=== PATIENT | female | born 1925 | race Caucasian/White ===

== ENCOUNTER 2016-07-01 10:45 | Inpatient (IN) | payer MEDICARE, BC ==
[~2016-07-01] VITALS: Ht 157.5 cm; Wt 113.0 kg
[2016-07-01] VITALS (9 sets, daily range): BP systolic 123–176; BP diastolic 57–86; PULSE 69–122; RESP 16–28; TEMP 97.1–97.9; O2SAT 94–100
[2016-07-01] MEDS ORDERED: GLIP5TAB8 PO (11:19)
[2016-07-01] MEDS ORDERED: ASPI1TAB69 PO (11:19)
[2016-07-01] MEDS ORDERED: AMLO10TA2 PO (11:19)
[2016-07-01] MEDS ORDERED: FURO1TAB60 PO (11:19)
[2016-07-01] MEDS ORDERED: DILTIAZEM INJ 125 MG in SODIUM CHLORIDE 0.9% INJ 100 ML IV SCH (11:45)
[2016-07-01] MEDS ORDERED: FUROSEMIDE 100 MG/10 ML VIAL IVP ONE (11:45)
[2016-07-01] MEDS ORDERED: SODIUM CHLORIDE 0.9% FLUSH 5 ML FLUSH IVF PRN (11:45)
[2016-07-01] MEDS ORDERED: DILTIAZEM HCL 25 MG/5 ML VIAL IVP ONE (11:45)
[2016-07-01 11:55] LABS: AUTOMATED NEUTROPHIL # 4.8 TH/MM3 (1.8-7.7); BASOPHIL % 0.4 % (0.0-2.0); EOSINOPHIL # 0.2 TH/MM3 (0-0.4); EOSINOPHIL % 2.2 % (0.0-4.0); HEMATOCRIT 36.4 % (35.0-46.0); HEMO FLAGS DIFF FINAL; LYMPH % 20.7 % (9.0-44.0); LYMPHOCYTE # 1.4 TH/MM3 (1.0-4.8); MEAN CELL VOLUME 87.8 FL (80.0-100.0); MEAN CORPUSCULAR HEMOGLOBIN 28.6 PG (27.0-34.0); MEAN CORPUSCULAR HGB CONC 32.6 % (32.0-36.0); MONO % 7.6 % (0.0-8.0); NEUT % 69.1 % (16.0-70.0); PLATELET COUNT 191 TH/MM3 (150-450); RED BLOOD COUNT 4.14 MIL/MM3 (4.00-5.30); RED CELL DISTRIBUTION WIDTH 14.7 % (11.6-17.2); WHITE BLOOD COUNT 6.9 TH/MM3 (4.0-11.0)
[2016-07-01 12:02] LABS: PROTHROMBIN TIME - PATIENT 10.7 SEC (9.8-11.6)
[2016-07-01 12:11] LABS: BICARBONATE 28.9 MEQ/L (21.0-32.0); POTASSIUM 4.5 MEQ/L (3.5-5.1)
[2016-07-01] MEDS ORDERED: LOTR10CA2 PO (12:37)
[2016-07-01] MEDS ORDERED: [UNRECOGNIZED DRUG - CODE] (12:37)
[2016-07-01] MEDS ORDERED: HEPARIN SODIUM - IV 10,000 UNITS/10 ML VIAL IV ONE (13:00)
[2016-07-01] MEDS ORDERED: HEPARIN-D5W INJ 250 ML IV SCH (13:00)
--- NOTE | 2016-07-01 13:01 | HHI.HP ---
[facility] Service Family Medicine Primary Care Physician Admission Diagnosis Diagnoses: International Travel<30 Days: No Contact w/Intl Traveler<30days: No Known Affected Area: No History of Present Illness This is a pleasant 89-year-old female here with her daughter and granddaughter complaining of shortness of breath for the last 8-9 days. Normally she is able to walk 100 steps without feeling short of breath. However, progressively over the last 8 days she has been getting more short of breath with fewer steps. Currently, she gets very short of breath after only 20 steps. She is visiting from [place] and her daughter provides a lot of her past medical history. She takes Lasix 60 mg daily for leg swelling although they think she also has a diagnosis of congestive heart failure. Her shortness of breath is worse with ambulation. Her shortness of breath is not related to positions. She sleeps flat on her stomach and does not wake up with breathing difficulties. While at school today with her daughter, she did not feel she could move any further. She asked her daughter if she looked pale and told her she was feeling poorly. She denies any feelings of palpitations or heart racing during the last 8-9 days. When she gets short of breath, she also feels "lightheaded. " She does not necessarily feel dizzy. Recently, she has had no cough, fever, chills. She does feel like she is wheezing more than usual. She used her Ventolin inhaler and felt much improvement with her wheezes. (Chicho Cao MD R2) Review of Systems Constitutional: DENIES: Fever, Chills Eyes: DENIES: Blurred vision, Diplopia Ears, nose, mouth, throat: COMPLAINS OF: Hearing loss (already has this; very hard of hearing), DENIES: Throat pain Respiratory: COMPLAINS OF: Wheezing (loud audible wheezes for a couple weeks), DENIES: Cough Cardiovascular: DENIES: Chest pain, Palpitations, Syncope Gastrointestinal: DENIES: Abdominal pain, Black stools, Bloody stools, Constipation, Diarrhea, Nausea, Vomiting Genitourinary: COMPLAINS OF: Urinary incontinence (hx of stress incontinence; wears briefs), DENIES: Urinary frequency, Urgency Integumentary: DENIES: Pruritus, Rash Neurologic: COMPLAINS OF: Poor Balance, DENIES: Abnormal gait, Headache Psychiatric: DENIES: Anxiety, Confusion (Chicho Cao MD R2) Past Family Social History Past Medical History CHF DVT in each knee; 2011; previously on xarelto but stopped by PCP HTN Stress incontinence COPD/asthma Hx of C. 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) Past Surgical History Both knees Both eyes: cataract Parathyroid removed X 1 Complete hysterectomy Cholecystectomy Hemroidectomy Left breast lumpectomy Reported Medications Reported Meds & Active Scripts Active Reported Lotrel (Amlodipine-Benazepril) 10-40 Mg Cap 1 Cap PO DAILY Aspirin 81 Mg Tabdr 81 Mg PO DAILY Glipizide 5 Mg Tab 5 Mg PO DAILY Take 30 minutes before a meal Lasix (Furosemide) 40 Mg Tab 40 Mg PO DAILY Previously on xarelto for DVT but stopped by her PCP (Chicho Cao MD R2) Allergies: Coded Allergies: Penicillin (Verified Allergy, Unknown, 07/01/16) Sulfa (Verified Allergy, Unknown, 07/01/16) Uncoded Allergies: Phenobarbitol (Allergy, Severe, Hives, 07/01/16) Active Ordered Medications Active Medications Diltiazem HCl 20 mg 20 mg ONCE ONCE IVP Last administered on 07/01/16 12:29; Admin Dose 20 MG; Start 07/01/16 at 11:45; Stop 07/01/16 at 11:46; Status DC Diltiazem HCl/ Sodium Chloride (Cardizem Inj/NS Inj) 125 ml @ 0 mls/hr TITRATE IV; Start 07/01/16 at 11:45 Furosemide (Lasix Inj) 60 mg ONCE ONCE IVP Last administered on 07/01/16 12:29 ; Admin Dose 60 MG; Start 07/01/16 at 11:45; Stop 07/01/16 at 11:46; Status DC Heparin Sodium (Porcine) 5000 units 5,000 units ONCE ONCE IV; Start 07/01/16 at 13:00; Stop 07/01/16 at 13:01; Status DC Heparin Sodium/ Dextrose (Heparin-D5W Inj) 250 ml @ 0 mls/hr TITRATE IV; Start 07/01/16 at 13:00 IV Flush (NS Flush) 2 ml UNSCH PRN IVF; Start 07/01/16 at 11:45 Family History Twin: CHF Sister: DM, CAD Dad: bright's disease Mom: colon cancer Social History PCP Dr. Cristy Correa in [facility]. Never smoker. Rarely alcohol. Stays here from April to . (Chicho Cao MD R2) Physical Exam Vital Signs Vital Signs Date Time Temp Pulse Resp B/P Pulse Ox O2 Delivery O2 Flow Rate FiO2 07/01/16 12:34 100 Nasal Cannula 2 07/01/16 12:34 86 19 137/79 100 Nasal Cannula 2 07/01/16 10:48 97.7 122 20 128/86 94 Physical Exam GENERAL: This is a well-nourished, well-developed patient, in no apparent distress. SKIN: No rashes, ecchymoses or lesions. Cool and dry. HEAD: Atraumatic. Normocephalic. No temporal or scalp tenderness. EYES: Pupils equal round and reactive. Extraocular motions intact. No scleral icterus. No injection or drainage. ENT: Nose without bleeding, purulent drainage or septal hematoma. Throat without erythema, tonsillar hypertrophy or exudate. Uvula midline. Airway patent. NECK: Trachea midline. No JVD or lymphadenopathy. Supple, nontender, no meningeal signs. CARDIOVASCULAR: Regular rate and irregular rhythm without murmurs, gallops, or rubs. RESPIRATORY: Clear to auscultation. Breath sounds equal bilaterally. No wheezes , rales, or rhonchi. GASTROINTESTINAL: Abdomen soft, non-tender, nondistended. No hepato-splenomegaly , or palpable masses. No guarding. MUSCULOSKELETAL: Extremities without clubbing, cyanosis, or edema. No joint tenderness, effusion, or edema noted. No calf tenderness. Negative Homans sign bilaterally. NEUROLOGICAL: Awake and alert. Cranial nerves II through XII intact. Motor and sensory grossly within normal limits. Five out of 5 muscle strength in all muscle groups. Normal speech. Laboratory Laboratory Tests Test 07/01/16 11:45 White Blood Count 6.9 Red Blood Count 4.14 Hemoglobin 11.9 Hematocrit 36.4 Mean Corpuscular Volume 87.8 Mean Corpuscular Hemoglobin 28.6 Mean Corpuscular Hemoglobin 32.6 Concent Red Cell Distribution Width 14.7 Platelet Count 191 Mean Platelet Volume 8.6 Neutrophils (%) (Auto) 69.1 Lymphocytes (%) (Auto) 20.7 Monocytes (%) (Auto) 7.6 Eosinophils (%) (Auto) 2.2 Basophils (%) (Auto) 0.4 Neutrophils # (Auto) 4.8 Lymphocytes # (Auto) 1.4 Monocytes # (Auto) 0.5 Eosinophils # (Auto) 0.2 Basophils # (Auto) 0.0 CBC Comment DIFF FINAL Differential Comment Prothrombin Time 10.7 Prothromb Time International 1.0 Ratio Sodium Level 143 Potassium Level 4.5 Chloride Level 108 Carbon Dioxide Level 28.9 Anion Gap 6 Blood Urea Nitrogen 37 Creatinine 1.70 Estimat Glomerular Filtration 28 Rate Random Glucose 171 Calcium Level 8.8 Troponin I 0.06 B-Type Natriuretic Peptide 311 (Chicho Cao MD R2) Result Diagram: 07/01/16 1145 07/01/16 1145 Imaging Last Impressions Chest X-Ray 07/01/16 1134 Signed Impressions: Service Date/Time: June 12:02 - CONCLUSION: Subtle hazy opacity overlying the lower lung zones is felt to most likely be related to overlying soft tissue. There is slight blunting of the left costophrenic sulcus. Rian Terry MD Lung Scan-V Nuclear Medicine 07/01/16 0000 Signed Impressions: Service Date/Time: June 14:29 - CONCLUSION: 1. Low probability for pulmonary embolus. Mode Aguilar MD (Chicho Cao MD R2) Assessment and Plan Assessment and Plan 89-year-old female with history of COPD and questionable history of CHF presents with shortness of breath and found to be in new onset atrial fibrillation. She was rate controlled in the emergency room. She was started on diltiazem and heparin drip. Cardiology has been consulted. Code Status Full Discussed Condition With Dr. Ezra Whitten (Chicho Cao MD R2) Attending Attestation The patient has been seen and examined. The chart and all resident notes have been reviewed. I agree that inpatient care is appropriate and that a two midnight stay is expected for the reasons documented in the resident history and physical. I have discussed this with the resident and certify the resident s order for inpatient admission. (Kaye Whitten MD) Problem List: (1) SOB (shortness of breath) Status: Resolved Plan: V/Q scan shows low probability for pulmonary embolus Shortness of breath likely related to atrial fibrillation with RVR. (2) Atrial fibrillation with RVR Status: Acute Plan: Cardiology consult, Dr. Munguia Currently she is rate controlled [id number] is 5 or 6 (age greater than 75, female, questionable CHF, hypertension, diabetes) Diltiazem drip started in the emergency room Eliquis 2.5 mg by mouth twice a day for anticoagulation Rate control with metoprolol 50 mg by mouth every 12 hours Echocardiogram ordered (3) Elevated troponin I level Status: Acute Plan: Very likely demand ischemia from A. fib with RVR We will rule out myocardial infarction Trend troponins and EKGs every 6 hours (4) Congestive heart failure Status: Chronic Plan: Unclear given history that the patient has congestive heart failure. BNP 311 Cardiogram pending Lasix 40 mg IV daily; expect adjustments as the patient has chronic kidney disease as well. (5) COPD (chronic obstructive pulmonary disease) Status: Chronic Plan: DuoNeb's every 4 hours. Careful with albuterol because of atrial fibrillation (6) Diabetes Status: Chronic Plan: Hold glipizide Provide sliding scale insulin (7) Chronic kidney disease Status: Chronic Plan: Unclear patient's baseline, however the patient and daughter both state she has chronic kidney disease. Trend BMPs while hospitalized. (8) Hypertension Status: Chronic Plan: Continue amlodipine/Benzapril 10/40 mg Daily (9) FEN/PPX Status: Acute Plan: Fluids: Tolerating by mouth Electrolytes: Monitor and replace when necessary Nutrition: Heart healthy diet Prophylaxis: Eliquis 2.5 mg, SCDs. (Chicho Cao MD R2) Physician Certification 2 Midnight Certification Type: Admission for Inpatient Services Order for Inpatient Services The services are ordered in accordance with Medicare regulations or non- Medicare payer requirements, as applicable. In the case of services not specified as inpatient-only, they are appropriately provided as inpatient services in accordance with the 2-midnight benchmark. Estimated LOS (days): 2 days is the estimated time the patient will need to remain in the hospital, assuming treatment plan goals are met and no additional complications. Post-Hospital Plan: Home (Chicho Cao MD R2) Problem Qualifiers (1) Congestive heart failure: Qualified Code: I50.9 - Congestive heart failure, unspecified congestive heart failure chronicity, unspecified congestive heart failure type (2) Diabetes: Qualified Code: E11.8 - Type 2 diabetes mellitus with complication, without long-term current use of insulin Chicho Cao MD R2 Jul 01, 2016 13:01 Kaye Whitten MD Jul 02, 2016 16:17
--- NOTE | 2016-07-01 13:03 | PD ---
HPI Chief Complaint: Respiratory Distress Time Seen by Provider: 11:03 Travel History International Travel<30 days: No Contact w/Intl Traveler<30days: No Traveled to known affect area: No History of Present Illness HPI 89-year-old female came to the emergency room with her daughter with history of progressive shortness of breath over one week. No history of chest pain. Currently patient is short of breath even at rest. Patient was in atrial fibrillation on the monitor with heart rate in 120s. Asking patient says she has never been diagnosed with A. fib. She has been taking her inhaler at home for shortness of breath and wheezing. She does not require oxygen at home. Her oxygen saturation was 94% on room air. No history of vomiting or diarrhea. No history of fever or chills. No history of cough she has noticed some swelling of her ankles. Patient has history of DVT and went off her Xarelto couple months ago as per her doctor's recommendations. [facility] Past Medical History Narrative Medical List of her past medical, surgical, social and family history is reviewed from the nursing note. Asthma: Yes Cardiovascular Problems: Yes (HTN) COPD: Yes Diabetes: Yes (TYPE2) Patient Takes Glucophage: No Hypertension: Yes Respiratory: Yes (COPD/ASTHMA / DVT) Pneumonia: Yes Influenza Vaccination: Yes ?: Not Past Surgical History Cholecystectomy: Yes Hysterectomy: Yes Tonsillectomy: Yes Other Surgery: Yes (PARATHYROID SURGERY / HEMORRHOIDECTOMY) Social History Alcohol Use: Yes (RARELY) Tobacco Use: No Substance Use: No Allergies-Medications (Allergen,Severity, Reaction): Coded Allergies: Penicillin (Verified Allergy, Unknown, 07/01/16) Sulfa (Verified Allergy, Unknown, 07/01/16) Uncoded Allergies: Phenobarbitol (Allergy, Severe, Hives, 07/01/16) Comments List of her allergies reviewed from the nursing note. Reported Meds & Prescriptions Reported Meds & Active Scripts Active Reported Aspirin 81 Mg Tabdr 81 Mg PO DAILY Glipizide 5 Mg Tab 5 Mg PO DAILY Take 30 minutes before a meal Lasix (Furosemide) 40 Mg Tab 40 Mg PO DAILY Narrative Medication List of her home medications reviewed from the nursing note. Review of Systems Except as stated in HPI: all other systems reviewed are Neg Physical Exam Narrative GENERAL: Awake, alert, elderly, obese, moderate respiratory distress SKIN: Warm and dry. HEAD: Atraumatic. Normocephalic. EYES: Pupils equal and round. No scleral icterus. No injection or drainage. ENT: No nasal bleeding or discharge. Mucous membranes pink and moist. NECK: Trachea midline. No JVD. CARDIOVASCULAR: Irregularly irregular rhythm with tachycardia. No murmur appreciated. RESPIRATORY: Decreased air entry bilaterally with bibasilar crackles GASTROINTESTINAL: Abdomen soft, non-tender, nondistended. Hepatic and splenic margins not palpable. MUSCULOSKELETAL: No obvious deformities. No clubbing. No cyanosis. 1+ pedal edema. NEUROLOGICAL: Awake and alert. No obvious cranial nerve deficits. Motor grossly within normal limits. Normal speech. PSYCHIATRIC: Appropriate mood and affect; insight and judgment normal. Data Data Last Documented VS Vital Signs Date Time Temp Pulse Resp B/P Pulse Ox O2 Delivery O2 Flow Rate FiO2 07/01/16 12:34 100 Nasal Cannula 2 07/01/16 12:34 86 19 137/79 07/01/16 10:48 97.7 Orders Electrocardiogram (07/01/16 ) Complete Blood Count With Diff (07/01/16 11:34) Basic Metabolic Panel (Bmp) (07/01/16 11:34) B-Type Natriuretic Peptide (07/01/16 11:34) Prothrombin Time / Inr (Pt) (07/01/16 11:34) Troponin I (07/01/16 11:34) Urinalysis - C+S If Indicated (07/01/16 11:34) Iv Access Insert/Monitor (07/01/16 11:34) Ecg Monitoring (07/01/16 11:34) Oximetry (07/01/16 11:34) Oxygen Administration (07/01/16 11:34) Chest, Single Ap (07/01/16 11:34) Sodium Chloride 0.9% Flush (Ns Flush) (07/01/16 11:45) Furosemide Inj (Lasix Inj) (07/01/16 11:45) Vital Signs (Adult) Q15MX4,Q4H (07/01/16 11:34) Alarm Installation Technician / Telemetry FRANCISCO.Q8H (07/01/16 11:34) Cardiac Rhythm FRANCISCO.Q8H (07/01/16 11:34) ^ Notify Dr: Other (07/01/16 11:34) Diltiazem Inj (Cardizem Inj) (07/01/16 11:45) Diltiazem Inj (Cardizem Inj) (07/01/16 11:45) Heparin Infusion FRANCISCO.Q1H (07/01/16 12:54) Heparin Inj (Heparin Inj) (07/01/16 13:00) Heparin-D5w Inj (Heparin-D5w Inj) (07/01/16 13:00) Act Partial Throm Time (Ptt) (07/01/16 12:54) Act Partial Throm Time (Ptt) (07/01/16 19:54) Admit Order (Ed Use Only) (07/01/16 13:03) Ventilation & Perfusion Scan (07/01/16 ) Labs Laboratory Tests Test 07/01/16 11:45 White Blood Count 6.9 TH/MM3 Red Blood Count 4.14 MIL/MM3 Hemoglobin 11.9 GM/DL Hematocrit 36.4 % Mean Corpuscular Volume 87.8 FL Mean Corpuscular Hemoglobin 28.6 PG Mean Corpuscular Hemoglobin 32.6 % Concent Red Cell Distribution Width 14.7 % Platelet Count 191 TH/MM3 Mean Platelet Volume 8.6 FL Neutrophils (%) (Auto) 69.1 % Lymphocytes (%) (Auto) 20.7 % Monocytes (%) (Auto) 7.6 % Eosinophils (%) (Auto) 2.2 % Basophils (%) (Auto) 0.4 % Neutrophils # (Auto) 4.8 TH/MM3 Lymphocytes # (Auto) 1.4 TH/MM3 Monocytes # (Auto) 0.5 TH/MM3 Eosinophils # (Auto) 0.2 TH/MM3 Basophils # (Auto) 0.0 TH/MM3 CBC Comment DIFF FINAL Differential Comment Prothrombin Time 10.7 SEC Prothromb Time International 1.0 RATIO Ratio Activated Partial 25.8 SEC Thromboplast Time Sodium Level 143 MEQ/L Potassium Level 4.5 MEQ/L Chloride Level 108 MEQ/L Carbon Dioxide Level 28.9 MEQ/L Anion Gap 6 MEQ/L Blood Urea Nitrogen 37 MG/DL Creatinine 1.70 MG/DL Estimat Glomerular Filtration 28 ML/MIN Rate Random Glucose 171 MG/DL Calcium Level 8.8 MG/DL Troponin I 0.06 NG/ML B-Type Natriuretic Peptide 311 PG/ML MDM Medical Decision Making Medical Screen Exam Complete: Yes Emergency Medical Condition: Yes Medical Record Reviewed: Yes Interpretation(s) Twelve-lead EKG was reviewed by me. Relation, normal axis, RVR. Heart rate of 109 bpm. Differential Diagnosis Congestive heart failure, new onset A. fib with RVR, PE, pneumonia Narrative Course 1 PM blood test results are back and patient is in renal insufficiency. Troponin is slightly bumped which could be from the A. fib with RVR and CHF. However patient does have history of DVT and given the clinical picture this could also be a PE. I could not do a pulmonary angiogram given her suboptimal renal function. I've ordered a VQ scan. Patient got IV Cardizem bolus and drip and her heart rate now is in the 80s. I have started her on heparin bolus and drip as well since she continues to be A. fib. Even if there is a PE she will be treated with the heparin. Patient will require to be admitted. I have spoken with the residents who have accepted the case. Patient was also given 60 mg of Lasix upon arrival. Critical Care Narrative Aggregate critical care time was 45 minutes. Time to perform other separately billable procedures was not included in the critical care time. My time did not include minutes spent treating any other patients simultaneously or on activities that did not directly contribute to the patient's treatment. The services I provided to this patient were to treat and/or prevent clinically significant deterioration that could result in: Respiratory distress, A. fib with RVR, new onset A. fib, Cardizem drip, heparin bolus and drip I provided critical care services requiring my management, as noted below: Chart data review, documentation time, medication orders and management, vital sign assessments/reviewing monitor data, ordering and reviewing lab tests, ordering and interpreting/reviewing x-rays and diagnostic studies, care of the patient and discussion of the patient with the admitting physicians. Procedures EKG Prior to Arrival: Yes Diagnosis Primary Impression: Respiratory distress Additional Impressions: Congestive heart failure Qualified Code: I50.9 - Congestive heart failure, unspecified congestive heart failure chronicity, unspecified congestive heart failure type New onset a-fib Atrial fibrillation with RVR Renal insufficiency Elevated troponin I level Admitting Information Admitting Physician Requests: Admit Scripts Benzonatate (Tessalon Perles)100 Mg [id number] Mg PO TID PRN (COUGH) #90 CAP Prov:Eko,Jennifer Cheema MD R1 07/03/16 Guaifenesin ER 12 HR (Mucinex ER 12 HR)600 Mg Ltqst278 Mg PO BID #60 TAB Prov:Jennifer Franklin MD 07/03/16 Nebulizer 1 Mis Mis #1 EA .ROUTE DIRECTED Ref 0 Prov:Jennifer Franklin MD 07/03/16 Ipratropium-Albuterol Neb (Duoneb)0.5-2.5 Mg/3 Ml Neb1 Ampule INH Q4HR NEB #90 ML Prov:Jennifer Franklin MD 07/03/16 Benazepril 20 Mg Tab20 Mg PO DAILY #30 TAB Ref 0 Prov:Jennifer Franklin MD 07/03/16 Apixaban (Eliquis)2.5 Mg Tab2.5 Mg PO BID #60 TAB Prov:Jennifer Franklin MD 07/03/16 [Spironolactone] (Aldactone)25 MG TAB No Conflict Check12.5 Mg PO DAILY Prov:Jennifer Franklin MD 07/03/16 Metoprolol Tartrate (Lopressor)50 Mg Tab50 Mg PO Q12HR #30 TAB Prov:Jennifer Franklin MD 07/03/16 Wandy Arzola MD Jul 01, 2016 13:03
--- NOTE | 2016-07-01 13:16 | RADRPT ---
EXAM DATE/TIME: 07/01/2016 12:02 [facility] COMPARISON: No previous studies available for comparison. INDICATIONS : Short of breath. MEDICAL HISTORY : None. SURGICAL HISTORY : None. ENCOUNTER: Initial ACUITY: 2 days PAIN SCORE: 0/10 LOCATION: Bilateral chest FINDINGS: Portable AP view of the chest demonstrates a normal-sized cardiac silhouette with calcification of th e aorta. There is hazy opacity overlying the lower lung zones which may be related to overlying soft tissue. There is blunting of the left costophrenic sulcus. No pneumothorax is visualized. Multiple cl ips overlie the left inferior neck. There are degenerative changes at the left glenohumeral joint. CONCLUSION: Subtle hazy opacity overlying the lower lung zones is felt to most likely be related to overlying sof t tissue. There is slight blunting of the left costophrenic sulcus. Rian Terry MD on July 01, 2016 at 13:13 Board Certified Radiologist. This report was verified electronically.
[2016-07-01] MEDS ORDERED: ONDANSETRON HCL 4 MG/2 ML VIAL IV PRN (13:45)
[2016-07-01] MEDS ORDERED: DOCUSATE SODIUM 50 MG/SENNA 8.6 MG TAB PO PRN (13:45)
[2016-07-01] MEDS ORDERED: ACETAMINOPHEN 325 MG TAB PO PRN (13:45)
[2016-07-01 13:55] LABS: APTT (PATIENT) 25.8 SEC (24.3-30.1)
[2016-07-01] MEDS ORDERED: DEXTROSE 50% IN WATER 50 ML VIAL(D50) IV PUSH PRN (14:00)
[2016-07-01] MEDS ORDERED: GLUCAGON 1 MG/ML VIAL OTHER PRN (14:00)
[2016-07-01] MEDS ORDERED: RESP: ALBUTEROL 2.5 MG/3 ML NEB (PRN) INH (14:00)
[2016-07-01] MEDS: LISINOPRIL 20 MG TAB PO SCH (14:21)
[2016-07-01 14:32] LABS: BLOOD, URINE NEG (NEG); GLUCOSE,URINE NEG (NEG); HYALINE CAST, URINE 1 /lpf (RARE); KETONE, URINE NEG (NEG); NITRITE,URINE NEG (NEG); URINE COLOR YELLOW (YELLW/STRAW)
[2016-07-01 14:33] LABS: COMMENT (UR) CULT NOT INDICATED; CULTURE IF INDICATED CULT NOT INDICATED
--- NOTE | 2016-07-01 15:24 | RADRPT ---
EXAM DATE/TIME: 07/01/2016 14:01 [facility] COMPARISON: No previous studies available for comparison. INDICATIONS : Short of breath. MEDICAL HISTORY : None. SURGICAL HISTORY : None. ENCOUNTER: Initial ACUITY: 2 days PAIN SCORE: 0/10 LOCATION: Bilateral chest FINDINGS: Heart is mildly enlarged. Lungs are free of significant congestion or airspace disease. There is no evidence of pleural effusion. Osseous structures are intact. CONCLUSION: Cardiomegaly No evidence of acute air space disease or significant congestion. Live Sanchez MD on July 01, 2016 at 15:21 Board Certified Radiologist. This report was verified electronically.
[2016-07-01] MEDS: RESP: ALBUTEROL 2.5 MG/IPRATROPIUM 0.5 MG NEB (SCH) INH ×2 (15:36→23:38)
--- NOTE | 2016-07-01 15:48 | RADRPT ---
EXAM DATE/TIME: 07/01/2016 14:29 [facility] COMPARISON: No previous studies available for comparison. INDICATIONS : Dyspnea for 1 week. DOSE: 8.7 mCi Tc99m MAA IV 1 mCi Tc99m DTPA aerosol MEDICAL HISTORY : Chronic obstructive pulmonary disease. Congestive heart failure. Diabetes mellitus type 2. Hypertensi on. Atrial defibrillation. SURGICAL HISTORY : Hysterectomy. ENCOUNTER: Initial ACUITY: 1 week PAIN SCALE: 0/10 LOCATION: chest TECHNIQUE: Following five minutes of tidal breathing of DTPA aerosol, planar images of the lungs were performed in eight projections. The patient was then injected with MAA, and eight-view perfusion scan was perf ormed. FINDINGS: There is a homogeneous pattern of aerosol delivery to the periphery of both lungs except for some air trapping. No focal ventilatory defects are seen. The perfusion lung scan demonstrates a homogenous pattern of uptake in both lungs. No segmental or s ubsegmental defects are seen. CONCLUSION: 1. Low probability for pulmonary embolus. Mode Aguilar MD on July 01, 2016 at 15:45 Board Certified Radiologist. This report was verified electronically.
[2016-07-01] MEDS ORDERED: predniSONE 50 MG TAB PO SCH (16:00)
[2016-07-01] MEDS: INSULIN ASPART SUPPLEMENTAL SCALE SQ SCH ×2 (16:00→20:14)
[2016-07-01] MEDS ORDERED: RIVAROXABAN 15 MG TAB PO SCH (17:00)
--- NOTE | 2016-07-01 17:21 | MB ---
cc: FLEX GARCIA MD DATE OF CONSULTATION 07/01/16 HISTORY OF PRESENT ILLNESS This is an 89-year-old woman who is in the hospital for shortness of breath. She noted that she had a cough with significant sputum production approximately two and a half weeks ago. This was relieved, but over the last 10 days has become short of breath with minimal exertion. She has had no cough. She denies any hemoptysis or chest pain. No orthopnea or PND has been present. She has a history in the past of heart failure in the distant past and has had rather chronic ankle edema which is essentially unchanged. She has had a history of asthma in the past. 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 Her daughter notes that virtually every year that she comes down from [place] she develops a pneumonia, although did not last year. We have been asked to see her in that her electrocardiogram demonstrated atrial fibrillation with rapid ventricular response. She has apparently been given a dose of Cardizem with improvement in her heart rate. No prior history of rhythm disturbances has been present. PAST MEDICAL HISTORY 1. Significant for DVT in the past for which she was placed on Xarelto but stopped two years ago because of hemorrhoids. 2. Hypertension. MEDICATIONS At home 1. Lotrel Amlodipine/Benazepril 10/40 daily. 2. Aspirin 81 daily. 3. Glipizide 5 mg daily. 4. Amlodipine 10 mg daily. 5. Furosemide 40 mg daily. ALLERGIES PENICILLIN SULFA DRUGS SOCIAL HISTORY The patient rarely drinks alcohol. She is a nonsmoker. He does not use recreational drugs. PHYSICAL EXAMINATION GENERAL: She is awake and alert. She is in no acute distress. VITAL SIGNS: Blood pressure is 150/70, pulse is approximately 100-110 and irregular. NECK: No neck vein distension. LUNGS: Essentially clear. CARDIOVASCULAR: An irregularly irregular rhythm. No murmur or gallop is noted. ABDOMEN: Obese. There is no tenderness. EXTREMITIES: +1 TO 2 two pedal edema. CARDIOLOGY STUDIES Electrocardiogram demonstrates atrial fibrillation with rapid ventricular response with no acute ST or T-wave changes. LABORATORY DATA Her laboratory examination is significant for elevated creatinine of 1.7. Her troponin is slightly elevated at 0.06, BNP is 311. H&H is normal and white blood cell count is 6900 with a normal differential. ASSESSMENT The patient has shortness of breath probably secondary to COPD with exacerbation, however, cannot rule out pulmonary embolus and she has just returned from nuclear scanning where VQ scan results are pending. In the meantime, in view of her use of amlodipine for her blood pressure we will institute oral metoprolol to help control her rate and also hopefully convert her back to sinus rhythm. Ordered an echocardiogram. At this point in time, we will restart her Xarelto for thromboembolic protection, await with interest the results of her VQ scan. MD ANTONIO Herrera/ /3:37 PM /5:02 PM
--- NOTE | 2016-07-01 17:22 | HHI.FPPN ---
Subjective Subjective Patient seen and examined. Case reviewed and discussed Please refer to resident H&P for further details regarding HPI, ROS, PMH, SurgHx , FH and SocHx In summary, patient is an 89yoF presenting accompanied by her daughter for 10 days of progressively worsening shortness of breath. She reports that she experienced NESS, no chest pain, but was finally prompted to come to hospital after it continually got worse. Upon arrival to the ED, she was noted to have afib with RVR. No prior history of afib that she is aware of . [facility] Objective Objective Last Impressions Chest X-Ray 07/01/16 1134 Signed Impressions: Service Date/Time: June 12:02 - CONCLUSION: Subtle hazy opacity overlying the lower lung zones is felt to most likely be related to overlying soft tissue. There is slight blunting of the left costophrenic sulcus. Rian Terry MD Lung Scan-V Nuclear Medicine 07/01/16 0000 Signed Impressions: Service Date/Time: June 14:29 - CONCLUSION: 1. Low probability for pulmonary embolus. Mode Aguilar MD Laboratory Tests - Abnormals Test 07/01/16 11:45 Chloride Level 108 MEQ/L Blood Urea Nitrogen 37 MG/DL Creatinine 1.70 MG/DL Estimat Glomerular Filtration 28 ML/MIN Rate Random Glucose 171 MG/DL Troponin I 0.06 NG/ML B-Type Natriuretic Peptide 311 PG/ML Vital Signs 07/01/16 07/01/16 07/01/16 07/01/16 10:48 12:34 12:34 14:19 Temp 97.7 Pulse 122 86 72 Resp 20 19 16 B/P 128/86 137/79 152/67 Pulse Ox 94 100 100 99 O2 Delivery Nasal Cannula Nasal Cannula Nasal Cannula O2 Flow Rate 2 2 2 07/01/16 07/01/16 15:34 15:38 Pulse 75 Resp 21 B/P 176/85 Pulse Ox 100 100 O2 Delivery Nasal Cannula Nasal Cannula O2 Flow Rate 2 2.00 Physical exam GENERAL: wdwn obese female, sitting up in bed SKIN: Warm and dry. no rashes HEAD: Normocephalic. AT EYES: No scleral icterus. No injection or drainage. ENT: OP clear. MMM NECK: Supple, trachea midline. No JVD or lymphadenopathy. CARDIOVASCULAR: Irregularly irregular rhythm, rate controlled in 80s-90s without murmurs, gallops, or rubs. RESPIRATORY: Breath sounds diminished but equal bilaterally. No wheeze, no accessory muscle use. GASTROINTESTINAL: Abdomen soft, non-tender, nondistended. no rebound MUSCULOSKELETAL: No cyanosis, there is trace bilateral foot edema. no calf tenderness BACK: Nontender without obvious deformity. No CVA tenderness. NEURO: Awake and alert. Normal speech. CN grossly intact. MAEW Assessment Assessment 89yoF admitted with: Afib with RVR, new onset Shortness of breath Acute exac of COPD Mildly elevated trop Chronic kidney disease PLAN PLAN Diltiazem and heparin gtts started in ED Cardiology has been consulted- appreciate recs Trend trop, ekg Supplemental oxygen as needed Duonebs Is/os 2D echo TSH Resume home meds as appropriate Patient seen and examined. Case reviewed and discussed Agree with plan of care as discussed with me and documented in the resident note. Kaye Whitten MD Jul 01, 2016 17:22
[2016-07-01] MEDS: BISACODYL EC 5 MG TABEC PO SCH (19:00)
[2016-07-01 20:17] LABS: APTT (PATIENT) 81.1 SEC (24.3-30.1)
[2016-07-01] MEDS: APIXABAN 2.5 MG TABLET PO SCH (20:49)
[2016-07-01] MEDS: METOPROLOL TARTRATE 50 MG TAB PO SCH (20:50)
[2016-07-02] VITALS (11 sets, daily range): BP systolic 118–141; BP diastolic 58–86; PULSE 66–89; RESP 18–24; TEMP 97.6–98.8; O2SAT 94–98
[2016-07-02 00:25] LABS: AUTOMATED NEUTROPHIL # 3.5 TH/MM3 (1.8-7.7); BASOPHIL % 0.7 % (0.0-2.0); EOSINOPHIL # 0.2 TH/MM3 (0-0.4); EOSINOPHIL % 3.7 % (0.0-4.0); HEMATOCRIT 35.3 % (35.0-46.0); HEMO FLAGS DIFF FINAL; LYMPH % 27.8 % (9.0-44.0); LYMPHOCYTE # 1.7 TH/MM3 (1.0-4.8); MEAN CELL VOLUME 87.8 FL (80.0-100.0); MEAN CORPUSCULAR HEMOGLOBIN 28.4 PG (27.0-34.0); MEAN CORPUSCULAR HGB CONC 32.4 % (32.0-36.0); MONO % 11.3 % (0.0-8.0); NEUT % 56.5 % (16.0-70.0); PLATELET COUNT 155 TH/MM3 (150-450); RED BLOOD COUNT 4.02 MIL/MM3 (4.00-5.30); WHITE BLOOD COUNT 6.1 TH/MM3 (4.0-11.0)
[2016-07-02 00:47] LABS: ALT (GPT) 16 U/L (10-53); ANION GAP 8 MEQ/L (5-15); AST (GOT) 15 U/L (15-37); BICARBONATE 28.2 MEQ/L (21.0-32.0); BLOOD UREA NITROGEN 37 MG/DL (7-18); CHLORIDE 109 MEQ/L (98-107); GLOMERULAR FILTRATION RATE 26 ML/MIN (>89); MAGNESIUM 2.1 MG/DL (1.5-2.5); POTASSIUM 4.3 MEQ/L (3.5-5.1); SODIUM (NA) 145 MEQ/L (136-145)
[2016-07-02 00:51] LABS: ALKALINE PHOSPHATASE 71 U/L (45-117); TOTAL BILIRUBIN ADULT 0.3 MG/DL (0.2-1.0)
[2016-07-02] MEDS: RESP: ALBUTEROL 2.5 MG/IPRATROPIUM 0.5 MG NEB (SCH) INH ×5 (03:35→20:31)
[2016-07-02 05:28] LABS: APTT (PATIENT) 95.2 SEC (24.3-30.1)
[2016-07-02] MEDS: INSULIN ASPART SUPPLEMENTAL SCALE SQ SCH ×4 (06:46→20:49)
--- NOTE | 2016-07-02 08:45 | PD.CARD.PN ---
Subjective Subjective Remarks Feels well. No chest pain or dyspnea Objective Vital Signs / I&O Vital Signs Date Time Temp Pulse Resp B/P Pulse Ox O2 Delivery O2 Flow Rate FiO2 07/02/16 08:00 97.6 79 20 119/64 97 07/02/16 07:44 98 Nasal Cannula 2.00 07/02/16 04:00 98.8 89 24 07/02/16 04:00 98.0 79 22 133/86 97 07/02/16 03:36 97 Nasal Cannula 2.00 07/02/16 00:00 98.0 77 22 118/69 98 07/01/16 23:43 98 Nasal Cannula 2.00 07/01/16 20:09 74 07/01/16 20:00 97.1 69 28 123/57 97 07/01/16 18:15 97.9 69 20 140/68 99 07/01/16 15:38 100 Nasal Cannula 2.00 07/01/16 15:34 75 21 176/85 100 Nasal Cannula 2 07/01/16 14:19 72 16 152/67 99 Nasal Cannula 2 07/01/16 12:34 100 Nasal Cannula 2 07/01/16 12:34 86 19 137/79 100 Nasal Cannula 2 07/01/16 10:48 97.7 122 20 128/86 94 Physical Exam Lungs clear irregular rate 80 Laboratory Laboratory Tests Test 07/01/16 07/01/16 07/01/16 07/01/16 11:45 14:15 17:35 19:41 White Blood Count 6.9 TH/MM3 Red Blood Count 4.14 MIL/MM3 Hemoglobin 11.9 GM/DL Hematocrit 36.4 % Mean Corpuscular Volume 87.8 FL Mean Corpuscular Hemoglobin 28.6 PG Mean Corpuscular Hemoglobin 32.6 % Concent Red Cell Distribution Width 14.7 % Platelet Count 191 TH/MM3 Mean Platelet Volume 8.6 FL Neutrophils (%) (Auto) 69.1 % Lymphocytes (%) (Auto) 20.7 % Monocytes (%) (Auto) 7.6 % Eosinophils (%) (Auto) 2.2 % Basophils (%) (Auto) 0.4 % Neutrophils # (Auto) 4.8 TH/MM3 Lymphocytes # (Auto) 1.4 TH/MM3 Monocytes # (Auto) 0.5 TH/MM3 Eosinophils # (Auto) 0.2 TH/MM3 Basophils # (Auto) 0.0 TH/MM3 CBC Comment DIFF FINAL Differential Comment Prothrombin Time 10.7 SEC Prothromb Time International 1.0 RATIO Ratio Activated Partial 25.8 SEC 81.1 SEC Thromboplast Time Sodium Level 143 MEQ/L Potassium Level 4.5 MEQ/L Chloride Level 108 MEQ/L Carbon Dioxide Level 28.9 MEQ/L Anion Gap 6 MEQ/L Blood Urea Nitrogen 37 MG/DL Creatinine 1.70 MG/DL Estimat Glomerular Filtration 28 ML/MIN Rate Random Glucose 171 MG/DL Calcium Level 8.8 MG/DL Troponin I 0.06 NG/ML 0.05 NG/ML B-Type Natriuretic Peptide 311 PG/ML Urine Color YELLOW Urine Turbidity CLEAR Urine pH 5.0 Urine Specific Oblong 1.018 Urine Protein TRACE mg/dL Urine Glucose (UA) NEG mg/dL Urine Ketones NEG mg/dL Urine Occult Blood NEG Urine Nitrite NEG Urine Bilirubin NEG Urine Urobilinogen LESS THAN 2.0 MG/DL Urine Leukocyte Esterase NEG Urine RBC LESS THAN 1 /hpf Urine WBC LESS THAN 1 /hpf Urine Hyaline Casts 1 /lpf Microscopic Urinalysis Comment CULT NOT INDICATED Thyroid Stimulating Hormone 1.130 uIU/ML 3rd Gen Test 07/02/16 07/02/16 00:12 04:45 White Blood Count 6.1 TH/MM3 Red Blood Count 4.02 MIL/MM3 Hemoglobin 11.4 GM/DL Hematocrit 35.3 % Mean Corpuscular Volume 87.8 FL Mean Corpuscular Hemoglobin 28.4 PG Mean Corpuscular Hemoglobin 32.4 % Concent Red Cell Distribution Width 14.0 % Platelet Count 155 TH/MM3 Mean Platelet Volume 8.3 FL Neutrophils (%) (Auto) 56.5 % Lymphocytes (%) (Auto) 27.8 % Monocytes (%) (Auto) 11.3 % Eosinophils (%) (Auto) 3.7 % Basophils (%) (Auto) 0.7 % Neutrophils # (Auto) 3.5 TH/MM3 Lymphocytes # (Auto) 1.7 TH/MM3 Monocytes # (Auto) 0.7 TH/MM3 Eosinophils # (Auto) 0.2 TH/MM3 Basophils # (Auto) 0.0 TH/MM3 CBC Comment DIFF FINAL Differential Comment Sodium Level 145 MEQ/L Potassium Level 4.3 MEQ/L Chloride Level 109 MEQ/L Carbon Dioxide Level 28.2 MEQ/L Anion Gap 8 MEQ/L Blood Urea Nitrogen 37 MG/DL Creatinine 1.86 MG/DL Estimat Glomerular Filtration 26 ML/MIN Rate Random Glucose 107 MG/DL Calcium Level 8.7 MG/DL Phosphorus Level 4.0 MG/DL Magnesium Level 2.1 MG/DL Total Bilirubin 0.3 MG/DL Aspartate Amino Transf 15 U/L (AST/SGOT) Alanine Aminotransferase 16 U/L (ALT/SGPT) Alkaline Phosphatase 71 U/L Troponin I 0.05 NG/ML Total Protein 6.3 GM/DL Albumin 2.9 GM/DL Activated Partial 95.2 SEC Thromboplast Time B-Type Natriuretic Peptide 236 PG/ML Assessment and Plan Assessment and Plan V/Q scan negative. Will d/c diltiazem. Watch HR response. Await echo Aguila Munguia MD Jul 02, 2016 08:45
[2016-07-02] MEDS ORDERED: FUROSEMIDE 40 MG/4 ML VIAL IVP SCH (09:00)
[2016-07-02] MEDS: APIXABAN 2.5 MG TABLET PO SCH ×2 (09:56→20:48)
[2016-07-02] MEDS: ASPIRIN EC 81 MG TABEC PO SCH (09:56)
[2016-07-02] MEDS: BISACODYL EC 5 MG TABEC PO SCH (09:56)
[2016-07-02] MEDS: METOPROLOL TARTRATE 50 MG TAB PO SCH ×2 (09:56→20:48)
[2016-07-02] MEDS: FUROSEMIDE 40 MG TAB PO SCH (09:56)
[2016-07-02] MEDS: LISINOPRIL 20 MG TAB PO SCH (09:57)
[2016-07-02 11:58] LABS: APTT (PATIENT) 29.6 SEC (24.3-30.1)
--- NOTE | 2016-07-02 12:11 | HHI.FPPN ---
Subjective Remarks Ms De Leon is doing well this morning and feels better. She is no longer short of breath and has no chest pain. Daughter at bedside had many quetions about her chest x-ray, ECHo, labs, etc. They both requested to stay another day in the hospital where she can be monitored. (Jennifer Franklin MD R1) Objective Vitals Vital Signs Date Time Temp Pulse Resp B/P Pulse Ox O2 Delivery O2 Flow Rate FiO2 07/02/16 10:27 66 07/02/16 08:55 Room Air 07/02/16 08:00 97.6 79 20 119/64 97 07/02/16 07:44 98 Nasal Cannula 2.00 07/02/16 04:00 98.8 89 24 07/02/16 04:00 98.0 79 22 133/86 97 07/02/16 03:36 97 Nasal Cannula 2.00 07/02/16 00:00 98.0 77 22 118/69 98 07/01/16 23:43 98 Nasal Cannula 2.00 07/01/16 20:09 74 07/01/16 20:00 97.1 69 28 123/57 97 07/01/16 18:15 97.9 69 20 140/68 99 07/01/16 15:38 100 Nasal Cannula 2.00 07/01/16 15:34 75 21 176/85 100 Nasal Cannula 2 07/01/16 14:19 72 16 152/67 99 Nasal Cannula 2 07/01/16 12:34 100 Nasal Cannula 2 07/01/16 12:34 86 19 137/79 100 Nasal Cannula 2 (Jennifer Franklin MD R1) Result Diagram: 07/02/16 0012 07/02/16 0012 Imaging Last 48 hours Impressions Chest X-Ray 07/01/16 1134 Signed Impressions: Service Date/Time: June 12:02 - CONCLUSION: Subtle hazy opacity overlying the lower lung zones is felt to most likely be related to overlying soft tissue. There is slight blunting of the left costophrenic sulcus. Rian Terry MD Lung Scan-V Nuclear Medicine 07/01/16 0000 Signed Impressions: Service Date/Time: June 14:29 - CONCLUSION: 1. Low probability for pulmonary embolus. Mode Aguilar MD Chest X-Ray 07/01/16 0000 Signed Impressions: Service Date/Time: June 14:01 - CONCLUSION: Cardiomegaly No evidence of acute air space disease or significant congestion. Live Sanchez MD Objective Remarks GENERAL: This is a well-nourished, well-developed patient, in no apparent distress. SKIN: No rashes, ecchymoses or lesions. Cool and dry. HEAD: Atraumatic. Normocephalic. EYES: Pupils equal round and reactive. Extraocular motions intact. No scleral icterus. No injection or drainage. ENT: Nose without bleeding, purulent drainage or septal hematoma. Throat without erythema, tonsillar hypertrophy or exudate. Uvula midline. Airway patent. NECK: Trachea midline. No JVD or lymphadenopathy. Supple, nontender, no meningeal signs. CARDIOVASCULAR: Regular rate and irregular rhythm without murmurs, gallops, or rubs. RESPIRATORY: Clear to auscultation. Breath sounds equal bilaterally. No wheezes , rales, or rhonchi. GASTROINTESTINAL: Abdomen soft, non-tender, nondistended. No hepato-splenomegaly , or palpable masses. No guarding. MUSCULOSKELETAL: Extremities without clubbing, cyanosis, or edema. No joint tenderness, effusion, or edema noted. No calf tenderness. NEUROLOGICAL: Awake and alert. Cranial nerves II through XII intact. Motor and sensory grossly within normal limits. Normal speech. (Jennifer Franklin MD R1) A/P Assessment and Plan 89-year-old female with history of COPD and questionable history of CHF presents with shortness of breath and found to be in new onset atrial fibrillation. She was rate controlled in the emergency room. She was started on diltiazem and heparin drip which have been discontinued. Cardiology has been consulted, who recommended starting her on metoprolol PO. A 2-D echo was performed which showed ejection fraction in the range of 30-35% with diffuse hypokinesis, as well as moderate aortic valve regurgitation and moderate to severe mitral valve regurgitation. Discharge Planning Pending cardiology recommendations based on new echo findings (Jennifer Franklin MD R1) Attending Attestation Patient seen and examined with the resident team. Case reviewed and discussed Agree with plan of care as discussed with me and documented in the resident note. (Kaye Whitten MD) Problem List: (1) SOB (shortness of breath) Status: Resolved Plan: V/Q scan shows low probability for pulmonary embolus Shortness of breath likely related to atrial fibrillation with RVR. (2) Atrial fibrillation with RVR Status: Acute Plan: Cardiology consult, Dr. Munguia Currently she is rate controlled [id number] is 5 or 6 (age greater than 75, female, questionable CHF, hypertension, diabetes) Diltiazem drip started in the emergency room but was later discontinued Eliquis 2.5 mg by mouth twice a day for anticoagulation Rate control with metoprolol 50 mg by mouth every 12 hours 2-D echo was performed which showed ejection fraction in the range of 30-35% with diffuse hypokinesis, as well as moderate aortic valve regurgitation and moderate to severe mitral valve regurgitation Will await cardiology recommendations based on echo findings (3) Elevated troponin I level Status: Acute Plan: Very likely demand ischemia from A. fib with RVR We will rule out myocardial infarction Trend troponins and EKGs every 6 hours (4) Congestive heart failure Status: Chronic Plan: Echo shows EF of 30-35% diffuse hypokinesis BNP 311, repeat in the a.m. Lasix 40 mg IV daily; expect adjustments as the patient has chronic kidney disease as well (5) COPD (chronic obstructive pulmonary disease) Status: Chronic Plan: DuoNebs every 4 hours. Careful with albuterol because of atrial fibrillation (6) Diabetes Status: Chronic Plan: Holding glipizide On sliding scale insulin Patient has needed only 1 unit in the last 24 hours (7) Chronic kidney disease Status: Chronic Plan: Unclear patient's baseline, however the patient and daughter both state she has chronic kidney disease Trend BMPs while hospitalized Creatinine 1.7 on admission, 1.86 today 07/02 (8) Hypertension Status: Chronic Plan: Continue amlodipine/Benzapril 10/40 mg Daily (9) FEN/PPX Status: Acute Plan: Fluids: Tolerating by mouth Electrolytes: Monitor and replace when necessary Nutrition: Heart healthy diet Prophylaxis: Eliquis 2.5 mg, SCDs (Eko,Jennifer Cheema MD R1) Problem Qualifiers (1) Congestive heart failure: Qualified Code: I50.9 - Congestive heart failure, unspecified congestive heart failure chronicity, unspecified congestive heart failure type (2) Diabetes: Qualified Code: E11.8 - Type 2 diabetes mellitus with complication, without long-term current use of insulin Jennifer Franklin MD R1 Jul 02, 2016 12:11 Kaye Whitten MD Jul 02, 2016 16:24
--- NOTE | 2016-07-02 15:19 | EC ---
Study Study Date:07/02/2016 STUDY CONCLUSIONS SUMMARY - Left ventricle: The cavity size was normal. Wall thickness was normal. Systolic function was moderately to severely reduced. The estimated ejection fraction was in the range of 30% to 35%. Diffuse hypokinesis. - Aortic valve: Moderate regurgitation. Valve area: 2.55cm^2 (Vmax). - Mitral valve: Moderate to severe regurgitation. If LV function is below 40, please consider prescribing an ACEI or ARB or document rationale for non-use. PROCEDURE DATA STUDY STATUS: Elective. Procedure: Transthoracic echocardiography. Image quality was good. Scanning was performed from the parasternal, apical, and subcostal acoustic windows. Study completion: The patient tolerated the procedure well. Transthoracic echocardiography. M-mode, complete 2D, complete spectral Doppler, and color Doppler. Height: Height: 62in. Weight: Weight: 230.5lb. Body mass index: BMI: 42.3kg/m^2. Body surface area: BSA: 2.03m^2. Patient status: Inpatient. CARDIAC ANATOMY LEFT VENTRICLE: The cavity size was normal. Wall thickness was normal. Systolic function was moderately to severely reduced. The estimated ejection fraction was in the range of 30% to 35%. Diffuse hypokinesis. AORTIC VALVE: Trileaflet; normal thickness leaflets. Doppler: Transvalvular velocity was within the normal range. There was no stenosis. Moderate regurgitation. Valve area: 2.55cm^2 (Vmax). Indexed valve area: 1.26cm^2/m^2 (Vmax). AORTA: Aortic root: The aortic root was normal in size. MITRAL VALVE: Structurally normal valve. Doppler: Transvalvular velocity was within the normal range. There was no evidence for stenosis. Moderate to severe regurgitation. Valve area by pressure half-time: 2.65cm^2. Indexed valve area by pressure half-time: 1.31cm^2/m^2. Mean gradient: 34mm Hg (D). Peak gradient: 47mm Hg (D). LEFT ATRIUM: The atrium was normal in size. RIGHT VENTRICLE: The cavity size was normal. Wall thickness was normal. PULMONIC VALVE: Doppler: Transvalvular velocity was within the normal range. There was no evidence for stenosis. No regurgitation. TRICUSPID VALVE: Structurally normal valve. Doppler: Transvalvular velocity was within the normal range. No regurgitation. Peak gradient: 31mm Hg (D). PULMONARY ARTERY: The main pulmonary artery was normal-sized. Systolic pressure was within the normal range. RIGHT ATRIUM: The atrium was normal in size. PERICARDIUM: There was no pericardial effusion. SYSTEMIC VEINS: Inferior vena cava: The vessel was normal in size. Patient weight: 230.5lb _Ejection fraction:_ 65-75% _Fractional shortening:_ 32% up to 5Kg 5-11.5Kg 11.6-22.9Kg 23-45Kg 45-57Kg Aortic Root 7-13 <17 13-22 17-27 17-27 LA diam 6-13 <23 24-38 33-47 37-40 RVID 10-17 7-15 7-15 7-18 8-17 LVIDd 12-22 <32 24-38 33-47 37-40 LVPW 2-4 3-6 5-7 6-8 7-8 IVS 2-4 3-6 5-7 6-8 7-8 BASIC MEASUREMENTS ADULT NORMAL Left ventricle LV internal dimension, ED, chordal 46.5 mm 43-52 level, PLAX LV internal dimension, ES, chordal *40.9 mm 23-38 level, PLAX Fractional shortening, chordal level, *12 % >29 PLAX LV posterior wall thickness, ED 13.9 mm IVS/LVPW ratio, ED 0.98 <1.3 Volume, ED, MOD, 1-plane 142 ml Volume, ES, MOD, 1-plane 92 ml Ejection fraction, MOD, 1-plane 35 % Stroke volume, MOD, 1-plane 50 ml Volume index, ED, MOD, 1-plane 70 ml/m^2 Volume index, ES, MOD, 1-plane 45 ml/m^2 Stroke index, MOD, 1-plane 24.6 ml/m^2 Ventricular septum Septal thickness, ED 13.6 mm Aorta Root diameter, ED 33 mm Left atrium Anterior-posterior dimension 43 mm Anterior-posterior dimension index 2.12 cm/m^2 <2.2 DOPPLER MEASUREMENTS ADULT NORMAL Aortic valve Peak velocity, S 132 cm/s VTI, S 114 cm Valve area, Vmax 2.55 cm^2 Valve area index, Vmax 1.26 cm^2/m^2 Regurgitant velocity, ED 406 cm/s Regurgitant deceleration 1950 cm/s^2 Regurgitant pressure half-time 608 ms Regurgitant gradient, ED 66 mm Hg Mitral valve Peak E-wave velocity 115 cm/s Peak A-wave velocity 64.2 cm/s Mean velocity, D 233 cm/s Pressure half-time 83 ms Mean gradient, D 34 mm Hg Peak gradient, D 47 mm Hg Peak E/A ratio 1.8 Valve area, pressure half-time 2.65 cm^2 Valve area index, pressure half-time 1.31 cm^2/m^2 Tricuspid valve Peak gradient, D 31 mm Hg Maximal inflow velocity 279 cm/s Systemic veins Estimated CVP 10 mm Hg Pulmonic valve Peak velocity, S 99.1 cm/s LEGEND: Mean values are shown as u=mean value. Asterisk (*) ron values outside specified normal range. Prepared and signed by Vincenzo Hatch [id number]
--- NOTE | 2016-07-02 19:35 | EKG ---
Date Performed: 07/01/2016 Time Performed: 22:45:09 PTAGE: 89 years EKG: ATRIAL FIBRILLATION WITH ABERRANT CONDUCTION OR VENTRICULAR PREMATURE COMPLEXES NONSPECIFIC T-WAVE ABNORMALITY ABNORMAL RHYTHM ECG PREVIOUS TRACING : 07/01/2016 20.24 Compared to prior tracing no significant change DOCTOR: Dinesh Bai Interpretating Date/Time 07/02/2016 19:33:56
--- NOTE | 2016-07-02 19:40 | EKG ---
Date Performed: 07/01/2016 Time Performed: 20:24:54 PTAGE: 89 years EKG: ATRIAL FIBRILLATION WITH ABERRANT CONDUCTION OR VENTRICULAR PREMATURE COMPLEXES NONSPECIFIC T-WAVE ABNORMALITY ABNORMAL ECG PREVIOUS TRACING : 07/01/2016 17.47 Compared to prior tracing no significant change DOCTOR: Dinesh Bai Interpretating Date/Time 07/05/2016 07:54:46
--- NOTE | 2016-07-02 19:44 | EKG ---
Date Performed: 07/01/2016 Time Performed: 17:47:48 PTAGE: 89 years EKG: ATRIAL FIBRILLATION NONSPECIFIC T-WAVE ABNORMALITY ABNORMAL ECG PREVIOUS TRACING : 07/01/2016 11.13 Compared to prior tracing no significant change DOCTOR: Dinesh Bai Interpretating Date/Time 07/02/2016 19:44:36
--- NOTE | 2016-07-02 20:20 | EKG ---
Date Performed: 07/01/2016 Time Performed: 11:13:14 PTAGE: 89 years EKG: ATRIAL FIBRILLATION WITH RAPID VENTRICULAR RESPONSE NONSPECIFIC T-WAVE ABNORMALITY ABNORMAL RHYTHM ECG NO PREVIOUS TRACING DOCTOR: Dinesh Bai Interpretating Date/Time 07/02/2016 20:18:16
[2016-07-03] VITALS (7 sets, daily range): BP systolic 95–125; BP diastolic 55–82; PULSE 81–94; RESP 18–20; TEMP 97.4–97.8; O2SAT 92–98
[2016-07-03] MEDS: RESP: ALBUTEROL 2.5 MG/IPRATROPIUM 0.5 MG NEB (SCH) INH ×4 (00:10→11:27)
[2016-07-03 05:58] LABS: HEMATOCRIT 34.6 % (35.0-46.0); MEAN CELL VOLUME 88.2 FL (80.0-100.0); MEAN CORPUSCULAR HEMOGLOBIN 28.7 PG (27.0-34.0); MEAN CORPUSCULAR HGB CONC 32.6 % (32.0-36.0); PLATELET COUNT 159 TH/MM3 (150-450); RED BLOOD COUNT 3.92 MIL/MM3 (4.00-5.30); RED CELL DISTRIBUTION WIDTH 14.5 % (11.6-17.2); REVIEW FLAG FINAL; WHITE BLOOD COUNT 5.9 TH/MM3 (4.0-11.0)
[2016-07-03] MEDS: INSULIN ASPART SUPPLEMENTAL SCALE SQ SCH ×2 (06:02→11:02)
[2016-07-03 06:27] LABS: BICARBONATE 27.7 MEQ/L (21.0-32.0); POTASSIUM 4.5 MEQ/L (3.5-5.1)
--- NOTE | 2016-07-03 08:14 | HHI.FPPN ---
Subjective Remarks Ms De Leon is doing better this morning. She denied chest pain, shortness of breath, dizziness. She was breathing comfortably on room air. She was able to walk up and down the hallway yesterday which is something she could not do prior to admission. She was always very short of breath after taking 20 steps. The only complaint she had is about dry mouth and dry throat. I spoke with her and her daughter about her ECHO findings of heart failure and discussed her new medications. (Jennifer Franklin MD R1) Objective Vitals Vital Signs Date Time Temp Pulse Resp B/P Pulse Ox O2 Delivery O2 Flow Rate FiO2 07/03/16 08:05 92 21 07/03/16 04:00 97.4 81 18 112/55 95 07/03/16 03:56 93 21 07/03/16 00:12 94 21 07/03/16 00:00 97.7 82 20 95/57 93 07/02/16 20:34 98 21 07/02/16 20:00 98.4 84 20 122/61 95 07/02/16 20:00 Room Air 07/02/16 19:53 83 07/02/16 16:00 98.3 73 18 141/58 97 07/02/16 12:00 98.0 75 20 125/67 94 07/02/16 10:27 66 07/02/16 08:55 Room Air I/O 07/02/16 07/02/16 07/02/16 07/03/16 07/03/16 07/03/16 07:00 15:00 23:00 07:00 15:00 23:00 Intake Total 480 ml 240 ml Balance 480 ml 240 ml Intake Oral 480 ml 240 ml # Voids 2 2 # Bowel Movements 0 0 (Jennifer Franklin MD R1) Result Diagram: 07/03/16 0545 07/03/16 0545 Objective Remarks GENERAL: This is a well-nourished, well-developed patient, in no apparent distress. SKIN: No rashes, ecchymoses or lesions. Cool and dry. HEAD: Atraumatic. Normocephalic. EYES: Pupils equal round and reactive. Extraocular motions intact. No scleral icterus. No injection or drainage. ENT: Nose without bleeding, purulent drainage or septal hematoma. Throat without erythema, tonsillar hypertrophy or exudate. Uvula midline. Airway patent. NECK: Trachea midline. No JVD or lymphadenopathy. Supple, nontender, no meningeal signs. CARDIOVASCULAR: Regular rate and irregular rhythm without murmurs, gallops, or rubs. RESPIRATORY: Clear to auscultation. Breath sounds equal bilaterally. No wheezes , rales, or rhonchi. GASTROINTESTINAL: Abdomen soft, non-tender, nondistended. No hepato-splenomegaly , or palpable masses. No guarding. MUSCULOSKELETAL: Extremities without clubbing, cyanosis, or edema. No joint tenderness, effusion, or edema noted. No calf tenderness. NEUROLOGICAL: Awake and alert. Cranial nerves II through XII intact. Motor and sensory grossly within normal limits. Normal speech. (Eko,Jennifer Cheema MD R1) A/P Assessment and Plan 89-year-old female with history of COPD and questionable history of CHF presents with shortness of breath and found to be in new onset atrial fibrillation. She was rate controlled in the emergency room. She was started on diltiazem and heparin drip which have been discontinued. Cardiology has been consulted, who recommended starting her on metoprolol PO. A 2-D echo was performed which showed ejection fraction in the range of 30-35% with diffuse hypokinesis, as well as moderate aortic valve regurgitation and moderate to severe mitral valve regurgitation. Discharge Planning Possibly today due to marked improvement in shortness of breath (Eko,Jennifer Cheema MD R1) Attending Attestation Patient seen and examined. Case reviewed and discussed Agree with plan of care as discussed with me and documented in the resident note. (Kaye Whitten MD) Problem List: (1) SOB (shortness of breath) Status: Resolved Plan: V/Q scan shows low probability for pulmonary embolus Shortness of breath likely related to atrial fibrillation with RVR, rate controlled with metoprolol (2) Atrial fibrillation with RVR Status: Acute Plan: Cardiology consult, Dr. Munguia [id number] is 5 or 6 (age greater than 75, female, questionable CHF, hypertension, diabetes) Eliquis 2.5 mg by mouth twice a day for anticoagulation Rate control with metoprolol 50 mg by mouth every 12 hours 2-D echo was performed which showed ejection fraction in the range of 30-35% with diffuse hypokinesis, as well as moderate aortic valve regurgitation and moderate to severe mitral valve regurgitation We'll adjust her medications based on the echo findings of heart failure. Patient will need to be optimized with a beta jose, aspirin, spironolactone, YUMIKO inhibitor, and diuretic. (3) Elevated troponin I level Status: Acute Plan: Very likely demand ischemia from A. fib with RVR Myocardial infarction was ruled out with trended troponins and EKG (4) Congestive heart failure Status: Chronic Plan: Echo shows EF of 30-35% diffuse hypokinesis BNP 272 today Continue Lasix 40 mg by mouth daily (5) COPD (chronic obstructive pulmonary disease) Status: Chronic Plan: DuoNebs every 4 hours Careful with albuterol because of atrial fibrillation (6) Diabetes Status: Chronic Plan: Holding glipizide On sliding scale insulin Patient has needed only 2 units in the last 24 hours (7) Chronic kidney disease Status: Chronic Plan: Unclear patient's baseline, however the patient and daughter both state she has chronic kidney disease Trend BMPs while hospitalized Creatinine 1.82 today 07/03, mildly improved from yesterday (8) Hypertension Status: Chronic Plan: Continue amlodipine and lisinopril (9) FEN/PPX Status: Acute Plan: Fluids: Oral fluids only Electrolytes: Monitor and replace when necessary Nutrition: Heart healthy diet Prophylaxis: Eliquis 2.5 mg, SCDs (Jennifer Franklin MD R1) Problem Qualifiers (1) Congestive heart failure: Qualified Code: I50.9 - Congestive heart failure, unspecified congestive heart failure chronicity, unspecified congestive heart failure type (2) Diabetes: Qualified Code: E11.8 - Type 2 diabetes mellitus with complication, without long-term current use of insulin Jennifer Franklin MD R1 Jul 03, 2016 08:14 Kaye Whitten MD Jul 12, 2016 09:43
[2016-07-03] MEDS: LISINOPRIL 20 MG TAB PO SCH (09:00)
[2016-07-03] MEDS: APIXABAN 2.5 MG TABLET PO SCH (09:49)
[2016-07-03] MEDS: METOPROLOL TARTRATE 50 MG TAB PO SCH (09:50)
[2016-07-03] MEDS: ASPIRIN EC 81 MG TABEC PO SCH (09:50)
[2016-07-03] MEDS: FUROSEMIDE 40 MG TAB PO SCH (09:50)
[2016-07-03] MEDS: BISACODYL EC 5 MG TABEC PO SCH (09:50)
[2016-07-03] MEDS ORDERED: SPIRONOLACTONE 25 MG TAB PO SCH (11:45)
[2016-07-03] MEDS ORDERED: PILL SPLITTER OTHER PRN (12:00)
[2016-07-03] MEDS ORDERED: Spironolactone PO (12:19)
[2016-07-03] MEDS ORDERED: METO-309 PO (12:19)
[2016-07-03] MEDS ORDERED: APIX2.5T PO (12:48)
[2016-07-03] MEDS ORDERED: BENA20TA PO (12:48)
[2016-07-03] MEDS ORDERED: NEBULIZER1 MI1 (12:48)
[2016-07-03] MEDS ORDERED: IPRASOL INH (12:48)
--- NOTE | 2016-07-03 12:52 | HHI.DCPOC ---
Discharge Care Plan Diagnosis: (1) Atrial fibrillation with RVR (2) Elevated troponin I level (3) COPD (chronic obstructive pulmonary disease) (4) Congestive heart failure (5) Diabetes (6) Hypertension (7) SOB (shortness of breath) (8) New onset a-fib (9) Renal insufficiency Goals to Promote Your Health * To prevent worsening of your condition and complications * To maintain your health at the optimal level Directions to Meet Your Goals Take your medications as prescribed Follow your dietary instruction Follow activity as directed Keep your appointments as scheduled Take your immunizations and boosters as scheduled If your symptoms worsen call your PCP, if no PCP go to Urgent Care Center or Emergency Room Smoking is Dangerous to Your Health. Avoid second hand smoke Call the 24-hour hour crisis hotline for domestic abuse at Jennifer Franklin MD R1 Jul 03, 2016 12:52
[2016-07-03] MEDS ORDERED: MUCI600T PO (12:57)
[2016-07-03] MEDS ORDERED: BENZ100 PO (12:57)
[2016-07-03] MEDS ORDERED: guaiFENesin E.R. 600 MG TAB PO SCH (13:00)
[2016-07-03] MEDS ORDERED: BENZONATATE 100 MG CAP PO PRN (13:00)
--- NOTE | 2016-07-03 13:12 | HHI.FF ---
Face to Face Verification Diagnosis: (1) New onset a-fib (2) Congestive heart failure (3) Chronic kidney disease (4) Diabetes (5) COPD (chronic obstructive pulmonary disease) (6) Hypertension (7) SOB (shortness of breath) Home Health Nursing Order: Medical education Signs/symptoms of disease process Diabetic education CHF education Oxygen administration education Medication education-adverse effect Nursing assessment with vital signs I have seen patient Paulette PopeCelena osorio on 07/03/16. My clinical findings support the need for the requested home health care services because: Ltd mobility - disease progression Patient has SOB Limited ability to care for self Need for psychosocial assistance I certify that my clinical findings support that this patient is homebound because: Impaired cognitive ability/safety Unsteady gait/balance Need for psychosocial assistance Poor cardiac reserve Jennifer Franklin MD R1 Jul 03, 2016 13:12
--- NOTE | 2016-07-03 16:00 | HHI.DS ---
Discharge Summary Admission Date Jul 01, 2016 at 13:08 Discharge Date: Jul 03, 2016 Admitting Diagnosis (1) SOB (shortness of breath) Diagnosis: Principal (2) Atrial fibrillation with RVR Diagnosis: Principal (3) Elevated troponin I level Diagnosis: Secondary (4) Congestive heart failure Diagnosis: Principal (5) COPD (chronic obstructive pulmonary disease) Diagnosis: Secondary (6) Diabetes Diagnosis: Secondary (7) Chronic kidney disease Diagnosis: Secondary (8) Hypertension Diagnosis: Secondary Brief History This is a pleasant 89-year-old female here with her daughter and granddaughter complaining of shortness of breath for the last 8-9 days. Normally she is able to walk 100 steps without feeling short of breath. However, progressively over the last 8 days she has been getting more short of breath with fewer steps. Currently, she gets very short of breath after only 20 steps. She is visiting from [place] and her daughter provides a lot of her past medical history. She takes Lasix 60 mg daily for leg swelling although they think she also has a diagnosis of congestive heart failure. Her shortness of breath is worse with ambulation. Her shortness of breath is not related to positions. She sleeps flat on her stomach and does not wake up with breathing difficulties. While at school today with her daughter, she did not feel she could move any further. She asked her daughter if she looked pale and told her she was feeling poorly. She denies any feelings of palpitations or heart racing during the last 8-9 days. When she gets short of breath, she also feels "lightheaded. " She does not necessarily feel dizzy. Recently, she has had no cough, fever, chills. She does feel like she is wheezing more than usual. She used her Ventolin inhaler and felt much improvement with her wheezes. CBC/BMP: 07/03/16 0545 07/03/16 0545 Significant Findings Laboratory Tests Test 07/01/16 07/01/16 07/02/16 07/02/16 11:45 19:41 00:12 04:45 Chloride Level 108 MEQ/L 109 MEQ/L (98-107) (98-107) Blood Urea Nitrogen 37 MG/DL (7-18) 37 MG/DL (7-18) Creatinine 1.70 MG/DL 1.86 MG/DL (0.50-1.00) (0.50-1.00) Estimat Glomerular Filtration 28 ML/MIN (>89) 26 ML/MIN (>89) Rate Random Glucose 171 MG/DL 107 MG/DL (74-106) (74-106) Troponin I 0.06 NG/ML (0.02-0.05) B-Type Natriuretic Peptide 311 PG/ML 236 PG/ML (0-100) (0-100) Activated Partial 81.1 SEC 95.2 SEC Thromboplast Time (24.3-30.1) (24.3-30.1) Hemoglobin 11.4 GM/DL (11.6-15.3) Monocytes (%) (Auto) 11.3 % (0.0-8.0) Total Protein 6.3 GM/DL (6.4-8.2) Albumin 2.9 GM/DL (3.4-5.0) Test 07/03/16 05:45 Red Blood Count 3.92 MIL/MM3 (4.00-5.30) Hemoglobin 11.3 GM/DL (11.6-15.3) Hematocrit 34.6 % (35.0-46.0) Chloride Level 108 MEQ/L (98-107) Blood Urea Nitrogen 46 MG/DL (7-18) Creatinine 1.82 MG/DL (0.50-1.00) Estimat Glomerular Filtration 26 ML/MIN (>89) Rate Random Glucose 132 MG/DL (74-106) B-Type Natriuretic Peptide 272 PG/ML (0-100) PE at Discharge GENERAL: This is a well-nourished, well-developed patient, in no apparent distress. SKIN: No rashes, ecchymoses or lesions. Cool and dry. HEAD: Atraumatic. Normocephalic. EYES: Pupils equal round and reactive. Extraocular motions intact. No scleral icterus. No injection or drainage. ENT: Nose without bleeding, purulent drainage or septal hematoma. Throat without erythema, tonsillar hypertrophy or exudate. Uvula midline. Airway patent. NECK: Trachea midline. No JVD or lymphadenopathy. Supple, nontender, no meningeal signs. CARDIOVASCULAR: Regular rate and irregular rhythm without murmurs, gallops, or rubs. RESPIRATORY: Clear to auscultation. Breath sounds equal bilaterally. No wheezes , rales, or rhonchi. GASTROINTESTINAL: Abdomen soft, non-tender, nondistended. No hepato-splenomegaly , or palpable masses. No guarding. MUSCULOSKELETAL: Extremities without clubbing, cyanosis, or edema. No joint tenderness, effusion, or edema noted. No calf tenderness. NEUROLOGICAL: Awake and alert. Cranial nerves II through XII intact. Motor and sensory grossly within normal limits. Normal speech. Hospital Course 89-year-old female with history of COPD and CHF presented with shortness of breath and was found to be in new onset atrial fibrillation. Cardiology was consulted, who recommended starting her on metoprolol PO for rate control and Eliquis for stroke prevention. A 2-D echo was performed which showed ejection fraction in the range of 30-35% with diffuse hypokinesis, as well as moderate aortic valve regurgitation, and moderate to severe mitral valve regurgitation. By the next morning, her shortness of breath had improved and she was taken off oxygen. Her medications were optimized for heart failure and she was discharged home in stable condition with home health care nursing. Pt Condition on Discharge: Stable Discharge Disposition: Discharge Home Discharge Instructions DIET: Follow Instructions for: Heart Healthy Diet Activities you can perform: Weight Bearing as Jesse Follow up Referrals: Appointment for Follow Up - 1 Week Cardiology - 1 Week with Aguila Munguia MD New Orders: BASIC METABOLIC PROF - 1 Week New Medications: Benazepril (Benazepril) 20 Mg Tab 20 MG PO DAILY Blood Pressure Management #30 Ref 0 TAB Nebulizer (Nebulizer) 1 Mis Mis 1 EA .ROUTE DIRECTED Breathing Treatment #1 Ref 0 EA Apixaban (Eliquis) 2.5 Mg Tab 2.5 MG PO BID #60 TAB Benzonatate (Tessalon Perles) 100 Mg Cap 200 MG PO TID PRN COUGH #90 CAP Guaifenesin ER 12 HR (Mucinex ER 12 HR) 600 Mg Rush 600 MG PO BID #60 TAB Ipratropium-Albuterol Neb (Duoneb) 0.5-2.5 Mg/3 Ml Neb 1 AMPULE INH Q4HR NEB #90 ML Metoprolol Tartrate (Lopressor) 50 Mg Tab 50 MG PO Q12HR #30 TAB ([Spironolactone]) 25 MG TAB 12.5 MG PO DAILY TAB Continued Medications: Aspirin (Aspirin) 81 Mg Tabdr 81 MG PO DAILY TAB Furosemide (Lasix) 40 Mg Tab 40 MG PO DAILY #30 Ref 0 TAB Glipizide (Glipizide) 5 Mg Tab 5 MG PO DAILY Take 30 minutes before a meal Blood Sugar Management #30 Ref 0 TAB Discontinued Medications: Amlodipine-Benazepril (Lotrel) 10-40 Mg Cap 1 CAP PO DAILY Blood Pressure Management #30 Ref 0 CAP Jennifer Franklin MD R1 Jul 03, 2016 16:00
== END 2016-07-03 14:35 | disposition home health service (06) | DRG 309 ==
LOC: NEPC 10:45 → NEDA 13:08 → N04A 18:37
PROVIDERS: ADMIT Family Medicine; ATTEND Family Medicine
DX: I48.91 Unspecified atrial fibrillation (principal); I24.8 Other forms of acute ischemic heart disease; E11.22 Type 2 diabetes mellitus with diabetic chronic kidney disease; J44.1 Chronic obstructive pulmonary disease with (acute) exacerbation; N18.9 Chronic kidney disease, unspecified; I12.9 Hypertensive chronic kidney disease with stage 1 through stage 4 chronic kidney disease, or unspecified chronic kidney disease; I50.9 Heart failure, unspecified; N39.3 Stress incontinence (female) (male); J45.909 Unspecified asthma, uncomplicated; I08.0 Rheumatic disorders of both mitral and aortic valves; Z79.82 Long term (current) use of aspirin; Z79.84 Long term (current) use of oral hypoglycemic drugs; Z87.442 Personal history of urinary calculi; Z86.718 Personal history of other venous thrombosis and embolism
CPT/HCPCS: 71010; 71020; 78582; 80048; 80053; 81001; 82948; 83735; 83880; 84100; 84443; 84484; 85025; 85027; 85610; 85730; 93005; 93306; 94620; 94640; 94664; 96374; 96375; 96376; A9540; A9567; J1644; J1815; J1940

== ENCOUNTER 2016-08-02 18:54 | Inpatient (IN) | payer MEDICARE, BC ==
[~2016-08-02] VITALS: Ht 157.5 cm; Wt 119.3 kg
[~2016-08-02 18:54] MED LIST: APIX2.5T PO; ASPI1TAB69 PO; BENA20TA PO; BENZ100 PO; FURO1TAB60 PO; GLIP5TAB8 PO; IPRASOL INH; METO-309 PO; MUCI600T PO; NEBULIZER1 MI1; Spironolactone PO
[2016-08-02 19:08] VITALS: BP 98/56; PULSE 111; RESP 20; TEMP 97.5; O2SAT 97
[2016-08-02 19:26] VITALS: O2SAT 97
[2016-08-02] MEDS ORDERED: SODIUM CHLORIDE 0.9% FLUSH 10 ML FLUSH IVF PRN (19:30)
--- NOTE | 2016-08-02 19:30 | PD ---
HPI Chief Complaint: Fall Time Seen by Provider: 19:11 Travel History International Travel<30 days: No Contact w/Intl Traveler<30days: No Traveled to known affect area: No History of Present Illness HPI The patient is an 89 year old female who presents to the [facility] emergency department with a history of falling on Tuesday while in the shower. The patient reports that she has a shower seat in the shower. She reports that she stood up to turn off the shower and then went to sit back down again missing the chair. She fell directly down on her buttock area. She reports that since then she's had right sided pelvis pain, right hip pain, right thigh pain. The patient reports that she has been able to do some weightbearing with the help of a rolling chair and a walker. The patient reports that the pain however was more severe today. The patient denies hitting her head or losing consciousness. The patient is however on Elavil was related to a history of recently being diagnosed with atrial fibrillation. The patient is visiting her daughter from out-of-town. The patient denies any recent fevers, cough, congestion, neck pain, chest pain, shortness of breath, abdominal pain, vomiting , diarrhea, urinary symptoms, or neurologic symptoms. PFSH Past Medical History Narrative Medical The patient's past medical history is significant for restless leg syndrome, atrial fibrillation chronically anticoagulated on liquids, history of congestive heart failure, history of DVT bilateral lower extremities, hypertension, history of stress incontinence, history of COPD, history of C. difficile colitis, history of kidney stones, history of chronic renal insufficiency, DM. 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) Asthma: Yes (uses ventolin inhaler) Cancer: Yes (encapsulated cancer L breast) Cardiovascular Problems: Yes (CHF) Chemotherapy: No Congestive Heart Failure: Yes COPD: Yes Diabetes: Yes Patient Takes Glucophage: No Endocrine: Yes Genitourinary: Yes (stress incontinence) Hypertension: Yes Immune Disorder: No Kidney Stones: Yes (hx of lithotripsy) Reproductive: No Respiratory: Yes (COPD/ASTHMA / DVT) Pneumonia: Yes Radiation Therapy: No Sleep Apnea: No Ulcer: Yes (40 years ago) Past Surgical History Narrative Surgical The patient's past surgical history is significant for bilateral knee replacements, bilateral cataract surgery, parathyroidectomy, hysterectomy, cholecystectomy, hemorrhoidectomy, left breast lumpectomy. Abdominal Surgery: Yes (open cholecystectomy) Cholecystectomy: Yes Endocrine Surgery: Yes (Parathyroidectomy) Eye Surgery: Yes (Bilateral cataracts 2014) Genitourinary Surgery: Yes (Lithotripsy) Gynecologic Surgery: Yes (DECLAN L breast surgery) Hysterectomy: Yes Joint Replacement: Yes (Jose Manuel Knee replacements) Tonsillectomy: Yes Other Surgery: Yes (PARATHYROID SURGERY / HEMORRHOIDECTOMY) Social History Alcohol Use: Yes (RARELY) Tobacco Use: No Substance Use: No Allergies-Medications (Allergen,Severity, Reaction): Coded Allergies: Penicillin (Verified Allergy, Unknown, 08/02/16) Sulfa (Verified Allergy, Unknown, 08/02/16) Uncoded Allergies: Phenobarbitol (Allergy, Severe, Hives, 07/01/16) Reported Meds & Prescriptions Reported Meds & Active Scripts Active Tessalon Perles (Benzonatate) 100 Mg Cap 200 Mg PO TID PRN Mucinex ER 12 HR (Guaifenesin) 600 Mg Rush 600 Mg PO BID Nebulizer 1 Mis Mis 1 Ea .ROUTE DIRECTED Duoneb (Ipratropium-Albuterol Neb) 0.5-2.5 Mg/3 Ml Neb 1 Ampule INH Q4HR NEB Benazepril (Benazepril HCl) 20 Mg Tab 20 Mg PO DAILY Eliquis (Apixaban) 2.5 Mg Tab 2.5 Mg PO BID [Spironolactone] 25 MG Tab 12.5 Mg PO DAILY Reported Aspirin 81 Mg Tabdr 81 Mg PO DAILY Lasix (Furosemide) 40 Mg Tab 40 Mg PO DAILY Review of Systems Except as stated in HPI: all other systems reviewed are Neg General / Constitutional: No: Fever Eyes: No: Visual changes HENT: No: Headaches Cardiovascular: No: Chest Pain or Discomfort Respiratory: No: Shortness of Breath Gastrointestinal: No: Abdominal Pain Genitourinary: No: Dysuria Musculoskeletal: Positive: Myalgias, Arthralgias, Pain Skin: No Rash Neurologic: No: Weakness Psychiatric: No: Depression Endocrine: No: Polydipsia Hematologic/Lymphatic: No: Easy Bruising Physical Exam Narrative General: The patient is a well-developed well-nourished female in no acute distress. Head and Neck exam: Head is normocephalic atraumatic. Eyes: EOMI, pupils are equal round and reactive to light. Nose: Midline septum with pink mucous membranes Mouth: Dentition unremarkable. Moist mucus membranes. Posterior oropharynx is not erythematous. No tonsillar hypertrophy. Uvula midline. Airway patent. Neck: No palpable lymphadenopathy. No nuchal rigidity. No thyromegaly. Cardiovascular: Irregularly irregular with a rate in the low 100s without murmurs, gallops, or rubs. Lungs: Soft expiratory wheezes are audible anteriorly. No evidence of conversational dyspnea or accessory muscle use. Abdomen: Soft, without tenderness to palpation in all 4 quadrants of the abdomen. No guarding, rebound, or rigidity. Normal bowel sounds are audible. No tenderness on palpation of McBurney's point. Extremities: No clubbing, cyanosis, or edema. 2+ pulses in all 4 extremities. The patient has no instability or pelvic pain with pelvic rock, however she has reported tenderness in the right groin, right anterior thigh. There is no deformity or crepitus noted. The patient has pain with flexion of the right hip and internal and external rotation. There is no shortening noted. The patient has less than 3 second capillary refill of her digits. The patient has intact sensation over her feet bilaterally. No other extremity pain or deformity on palpation. Back: No spinous process tenderness to palpation. No costovertebral angle tenderness to palpation. Neurologic Exam: Cranial nerves 2-12 were intact on exam. Strength is 5/5 in all 4 extremities. No sensory deficits noted. Skin Exam: No rash noted. Intact skin that is warm and dry. Data Data Last Documented VS Vital Signs Date Time Temp Pulse Resp B/P Pulse Ox O2 Delivery O2 Flow Rate FiO2 08/02/16 19:26 97 Room Air 08/02/16 19:08 97.5 111 20 98/56 Orders Electrocardiogram (08/02/16 19:21) Complete Blood Count With Diff (08/02/16 19:21) Comprehensive Metabolic Panel (08/02/16 19:21) B-Type Natriuretic Peptide (08/02/16 19:21) Prothrombin Time / Inr (Pt) (08/02/16 19:21) Act Partial Throm Time (Ptt) (08/02/16 19:21) Lipase (08/02/16 19:21) Urinalysis - C+S If Indicated (08/02/16 19:21) Magnesium (Mg) (08/02/16 19:21) Thyroid Stimulating Hormone (08/02/16 19:21) Chest, Single Ap (08/02/16 19:21) Iv Access Insert/Monitor (08/02/16 19:21) Ecg Monitoring (08/02/16 19:21) Oximetry (08/02/16 19:21) Femur (Ap & Lat/2vws) (08/02/16 19:21) Hip, Uni(Ap&Lat) W Ap Pelvis (08/02/16 19:21) Ice/Cold Pack (08/02/16 19:21) Sodium Chloride 0.9% Flush (Ns Flush) (08/02/16 19:30) Albuterol-Ipratropium Neb (Duoneb Neb) (08/02/16 19:30) Sodium Chlor 0.9% 250 Ml Inj (Ns 250 Ml (08/02/16 20:15) Morphine Inj (Morphine Inj) (08/02/16 20:15) Ondansetron Inj (Zofran Inj) (08/02/16 20:15) Ct Abd/Pel W/O Iv Contrast (08/02/16 19:21) Ct Hip W/O Contrast (08/02/16 ) Admit Order (Ed Use Only) (08/02/16 22:11) Morphine Inj (Morphine Inj) (08/02/16 22:15) Labs Laboratory Tests Test 08/02/16 08/02/16 19:29 21:49 White Blood Count 6.8 TH/MM3 Red Blood Count 4.43 MIL/MM3 Hemoglobin 12.7 GM/DL Hematocrit 38.2 % Mean Corpuscular Volume 86.1 FL Mean Corpuscular Hemoglobin 28.7 PG Mean Corpuscular Hemoglobin 33.3 % Concent Red Cell Distribution Width 14.9 % Platelet Count 186 TH/MM3 Mean Platelet Volume 8.5 FL Neutrophils (%) (Auto) 68.9 % Lymphocytes (%) (Auto) 18.6 % Monocytes (%) (Auto) 6.4 % Eosinophils (%) (Auto) 5.3 % Basophils (%) (Auto) 0.8 % Neutrophils # (Auto) 4.7 TH/MM3 Lymphocytes # (Auto) 1.3 TH/MM3 Monocytes # (Auto) 0.4 TH/MM3 Eosinophils # (Auto) 0.4 TH/MM3 Basophils # (Auto) 0.1 TH/MM3 CBC Comment DIFF FINAL Differential Comment Prothrombin Time 10.5 SEC Prothromb Time International 1.0 RATIO Ratio Activated Partial 23.5 SEC Thromboplast Time Sodium Level 136 MEQ/L Potassium Level 6.0 MEQ/L Chloride Level 104 MEQ/L Carbon Dioxide Level 22.5 MEQ/L Anion Gap 10 MEQ/L Blood Urea Nitrogen 79 MG/DL Creatinine 2.39 MG/DL Estimat Glomerular Filtration 19 ML/MIN Rate Random Glucose 88 MG/DL Calcium Level 9.2 MG/DL Magnesium Level 2.6 MG/DL Total Bilirubin 0.4 MG/DL Aspartate Amino Transf 52 U/L (AST/SGOT) Alanine Aminotransferase 31 U/L (ALT/SGPT) Alkaline Phosphatase 82 U/L B-Type Natriuretic Peptide 448 PG/ML Total Protein 7.8 GM/DL Albumin 3.6 GM/DL Lipase 476 U/L Thyroid Stimulating Hormone 1.720 uIU/ML 3rd Gen Urine Color LIGHT-YELLOW Urine Turbidity CLEAR Urine pH 5.0 Urine Specific [place] 1.008 Urine Protein NEG mg/dL Urine Glucose (UA) NEG mg/dL Urine Ketones NEG mg/dL Urine Occult Blood NEG Urine Nitrite NEG Urine Bilirubin NEG Urine Urobilinogen LESS THAN 2.0 MG/DL Urine Leukocyte Esterase NEG Urine WBC LESS THAN 1 /hpf Urine Squamous Epithelial <1 /hpf Cells Urine Hyaline Casts 4 /lpf Microscopic Urinalysis Comment CULT NOT INDICATED MDM Medical Decision Making Medical Screen Exam Complete: Yes Emergency Medical Condition: Yes Medical Record Reviewed: Yes Interpretation(s) Last Impressions Hip and Pelvis X-Ray 08/02/161920 Signed Impressions: Service Date/Time: Tuesday, August 02, 2016 19:47 - CONCLUSION: Possible right femoral head fracture. CT scan is suggested. Juni Swain MD FACR Femur X-Ray 08/02/161920 Signed Impressions: Service Date/Time: Tuesday, August 02, 2016 19:49 - CONCLUSION: Negative for distal femur fracture. Knee arthroplasty is intact. Femoral head fracture cannot be excluded. Correlation is suggested. Juni Swain MD FACR Chest X-Ray 08/02/161920 Signed Impressions: Service Date/Time: Tuesday, August 02, 2016 19:42 - CONCLUSION: Mild congestive failure without pneumothorax. Juni Swain MD FACR Abdomen/Pelvis CT 08/02/16 1921 Signed Impressions: Service Date/Time: Tuesday, August 02, 2016 20:48 - CONCLUSION: 1. Compensated cardiomegaly. 2. Extensive degenerative changes in the lumbar spine without rib fracture. 3. Right renal cyst. 4. I do not see an etiology for the patient's right-sided pelvic pain. Juni Swain MD FACR Lower Extremity CT 08/02/16 0000 Signed Impressions: Service Date/Time: Tuesday, August 02, 2016 20:48 - CONCLUSION: Negative for fracture. Juni Swain MD FACR Differential Diagnosis Pelvic fracture, versus right hip fracture, versus hip dislocation, versus femur fracture, versus quadriceps strain Narrative Course During the course of the patients emergency department visit, the patients history, examination, and differential diagnosis were reviewed with the patient. The patient had IV access obtained and blood work sent for analysis. The patient was placed on a monitoring and evaluation advisor with oximetry and blood pressure monitoring. An EKG was ordered as the patient arrives tachycardic. The patient 's initial blood pressure is 98/56. This could be related to her new medication for atrial fibrillation for rate control and blood pressure, however further evaluation will be done for any type of retroperitoneal or pelvic bleeding given the fact that she is on Eliquis with a history of a fall. A pelvic x-ray, chest x-ray, right hip x-ray, right femur x-ray has been ordered. The patient's EKG on arrival reveals an atrial fibrillation with aberrant conduction heart rate of 99, nonspecific T-wave abnormalities, no acute ST segment elevation The patient was provided a DuoNeb 2 for wheezing noted on examination. The patient was given morphine for pain, Zofran for nausea. The patients laboratory studies were reviewed and remarkable for a white count of 6.8, hemoglobin 12.7, platelets 186 with 5.3 eosinophils, CMP is remarkable for a potassium of 6.0, increase and BUN and creatinine compared to previously at 79 and creatinine 2.39. The patient has a history of congestive heart failure. The patient reports diminished by mouth intake today, therefore she was given a gentle fluid bolus of 250 mL 1. Lipase was 476, BNP 448, TSH 1.72 , PT 10.5, PTT 23.5, urinalysis unremarkable. Radiology studies were reviewed and remarkable for a CT scan of the abdomen and pelvis that showed no acute abnormality. No evidence of retroperitoneal hemorrhage, no evidence of hip fracture and reconstructed views, however the patient continues to have a significant amount of pain with any type of range of motion of the right hip and difficulty ambulating. The patient will be admitted to the hospital for acute on chronic renal failure, inability to ambulate, CHF exacerbation. The patients results were discussed with the patient, including the plan of care. I explained that further testing and/ or monitoring is indicated based on the patients history, examination, and/ or laboratory findings. Therefore, I recommended admission for additional evaluation. The patient expressed understanding and was agreeable with this plan. The patient was admitted to the hospital in stable condition and sent to a bed under the care of Dr. Haider. Physician Communication Physician Communication The patient's case is discussed with Dr. Haider who did agree to admit the patient for further evaluation and treatment at this time. Diagnosis Primary Impression: Fall Qualified Code: W19.XXXA - Fall, initial encounter Additional Impressions: Acute on chronic renal failure Inability to ambulate due to hip CHF exacerbation Qualified Code: I50.9 - Acute on chronic congestive heart failure, unspecified congestive heart failure type Admitting Information Admitting Physician Requests: Shabnam Lipscomb MD Aug 02, 2016 19:30
[2016-08-02 19:50] LABS: AUTOMATED NEUTROPHIL # 4.7 TH/MM3 (1.8-7.7); BASOPHIL # 0.1 TH/MM3 (0-0.2); BASOPHIL % 0.8 % (0.0-2.0); EOSINOPHIL # 0.4 TH/MM3 (0-0.4); EOSINOPHIL % 5.3 % (0.0-4.0); HEMATOCRIT 38.2 % (35.0-46.0); HEMO FLAGS DIFF FINAL; LYMPH % 18.6 % (9.0-44.0); LYMPHOCYTE # 1.3 TH/MM3 (1.0-4.8); MEAN CELL VOLUME 86.1 FL (80.0-100.0); MEAN CORPUSCULAR HEMOGLOBIN 28.7 PG (27.0-34.0); MEAN CORPUSCULAR HGB CONC 33.3 % (32.0-36.0); MONO % 6.4 % (0.0-8.0); NEUT % 68.9 % (16.0-70.0); PLATELET COUNT 186 TH/MM3 (150-450); RED BLOOD COUNT 4.43 MIL/MM3 (4.00-5.30); RED CELL DISTRIBUTION WIDTH 14.9 % (11.6-17.2); WHITE BLOOD COUNT 6.8 TH/MM3 (4.0-11.0)
[2016-08-02 19:51] LABS: APTT (PATIENT) 23.5 SEC (24.3-30.1); PROTHROMBIN TIME - PATIENT 10.5 SEC (9.8-11.6)
[2016-08-02 20:06] LABS: ANION GAP 10 MEQ/L (5-15); AST (GOT) 52 U/L (15-37); BICARBONATE 22.5 MEQ/L (21.0-32.0); BLOOD UREA NITROGEN 79 MG/DL (7-18); CHLORIDE 104 MEQ/L (98-107); GLOMERULAR FILTRATION RATE 19 ML/MIN (>89); MAGNESIUM 2.6 MG/DL (1.5-2.5); SODIUM (NA) 136 MEQ/L (136-145)
[2016-08-02] MEDS: RESP: ALBUTEROL 2.5 MG/IPRATROPIUM 0.5 MG NEB (SCH) INH (20:14)
[2016-08-02] MEDS ORDERED: SODIUM CHLOR 0.9% 250 ML INJ 250 ML IV ONE (20:15)
[2016-08-02] MEDS ORDERED: MORPHINE SULFATE 4 MG/ML INJ IV PUSH ONE ×2 (20:15→22:15)
[2016-08-02] MEDS ORDERED: ONDANSETRON HCL 4 MG/2 ML VIAL IV PUSH ONE (20:15)
--- NOTE | 2016-08-02 20:15 | RADRPT ---
EXAM DATE/TIME: 08/02/2016 19:42 [facility] COMPARISON: CHEST SINGLE AP, July 01, 2016, 12:02. INDICATIONS : Shortness of breath. Patient fell in the shower four days ago. Some right sided pain. MEDICAL HISTORY : Chronic obstructive pulmonary disease. Congestive heart failure. Hypertension. Asthma, Breast can cer. SURGICAL HISTORY : Cholecystectomy. ENCOUNTER: Initial ACUITY: 4 - 6 days PAIN SCORE: 3/10 LOCATION: Bilateral chest FINDINGS: There is cardiomegaly with mild interstitial edema. There is no pneumothorax. There are degenerativ e changes about both shoulders worse on the right. Displaced rib fracture is not seen and reviewed d ifficult to exclude. CONCLUSION: Mild congestive failure without pneumothorax. Juni Swain MD FACR on August 02, 2016 at 20:12 Board Certified Radiologist. This report was verified electronically.
[2016-08-02 20:16] LABS: ALKALINE PHOSPHATASE 82 U/L (45-117); ALT (GPT) 31 U/L (10-53); TOTAL BILIRUBIN ADULT 0.4 MG/DL (0.2-1.0)
--- NOTE | 2016-08-02 20:21 | RADRPT ---
EXAM DATE/TIME: 08/02/2016 19:47 [facility] COMPARISON: No previous studies available for comparison. INDICATIONS : Right hip pain after fall in shower. Patient fell four days ago. MEDICAL HISTORY : None. SURGICAL HISTORY : None. ENCOUNTER: Initial ACUITY: 4 - 6 days PAIN SCORE: 5/10 LOCATION: Right hip. FINDINGS: There are degenerative changes about both hips worse on the right than the left. There may be nondis placed fracture through the right femoral head. CT scan is suggested. CONCLUSION: Possible right femoral head fracture. CT scan is suggested. Juni Swain MD FACR on August 02, 2016 at 20:17 Board Certified Radiologist. This report was verified electronically.
--- NOTE | 2016-08-02 20:32 | RADRPT ---
EXAM DATE/TIME: 08/02/2016 19:49 [facility] COMPARISON: No previous studies available for comparison. INDICATIONS : Right leg pain. Patient fell in the shower four days ago. MEDICAL HISTORY : None. SURGICAL HISTORY : Right total knee. ENCOUNTER: Initial ACUITY: 4 - 6 days PAIN SCORE: 5/10 LOCATION: Right femur. FINDINGS: Two view examination of the right femur demonstrates no evidence of fracture or dislocation. Bony mi neralization is normal. The soft tissue structures are intact. CONCLUSION: Negative for distal femur fracture. Knee arthroplasty is intact. Femoral head fracture cannot be ex cluded. Correlation is suggested. Juni Swain MD FACR on August 02, 2016 at 20:29 Board Certified Radiologist. This report was verified electronically.
--- NOTE | 2016-08-02 21:18 | RADRPT ---
EXAM DATE/TIME: 08/02/2016 20:48 [facility] COMPARISON: No previous studies available for comparison. INDICATIONS : Fall with abdominal trauma and right pelvic pain. ORAL CONTRAST: No oral contrast ingested. RADIATION DOSE: 24.13 CTDIvol (mGy) MEDICAL HISTORY : Chronic obstructive pulmonary disease. Diabetes mellitus type 2. Carcinoma, abel ast. SURGICAL HISTORY : Cholecystectomy. Hysterectomy. ENCOUNTER: Initial ACUITY: 3 days PAIN SCALE: 6/10 LOCATION: Right lower quadrant TECHNIQUE: Volumetric scanning of the abdomen and pelvis was performed. Using automated exposure control and adjustment of the mA and/or kV according to patient size, radiation dose was kept as low as reasonably achievable to obtain optimal diagnostic quality images. FINDINGS: Lung bases are clear. There is moderate compensated cardiomegaly. The liver is free o f focal defects. Spleen, pancreas and adrenals are unremarkable. There is a 1.8 cm right renal cyst . Kidneys are otherwise unremarkable. There is no evidence for a pneumothorax. I do not see a rib fracture as the cause of the patient's p ain. There are degenerative changes in the lumbar spine. Pelvis is intact. CONCLUSION: 1. Compensated cardiomegaly. 2. Extensive degenerative changes in the lumbar spine without rib fracture. 3. Right renal cyst. 4. I do not see an etiology for the patient's right-sided pelvic pain. Juni Swain MD FACR on August 02, 2016 at 21:11 Board Certified Radiologist. This report was verified electronically.
--- NOTE | 2016-08-02 22:01 | RADRPT ---
EXAM DATE/TIME: 08/02/2016 20:48 [facility] COMPARISON: No previous studies available for comparison. INDICATIONS : Fall. Right hip pain. RADIATION DOSE: ; Reconstructed from previous dataset MEDICAL HISTORY : Chronic obstructive pulmonary disease. Diabetes mellitus type 2. Carcinoma, breast. SURGICAL HISTORY : Cholecystectomy. Hysterectomy. ENCOUNTER: Initial ACUITY: 3 days PAIN SCALE: 8/10 LOCATION: Right hip TECHNIQUE: Volumetric scanning of the hip was performed. Using automated exposure control and adjustment of the mA and/or kV according to patient size, radiation dose was kept as low as reasonably achievable to o btain optimal diagnostic quality images. FINDINGS: There is no evidence for fracture. There are moderate degenerative changes with small joint effusion . CONCLUSION: Negative for fracture. Juni Swain MD FACR on August 02, 2016 at 21:58 Board Certified Radiologist. This report was verified electronically.
[2016-08-02 22:21] LABS: BLOOD, URINE NEG (NEG); COMMENT (UR) CULT NOT INDICATED; CULTURE IF INDICATED CULT NOT INDICATED; GLUCOSE,URINE NEG (NEG); HYALINE CAST, URINE 4 /lpf (RARE); KETONE, URINE NEG (NEG); NITRITE,URINE NEG (NEG); SQUAMOUS EPITHELIAL CELL URINE <1 /hpf (0-5); URINE COLOR LIGHT-YELLOW (YELLW/STRAW)
[2016-08-02] MEDS ORDERED: NALOXONE HCL 0.4 MG/ML AMP IV PRN (22:30)
[2016-08-02] MEDS ORDERED: SODIUM CHLORIDE 0.9% FLUSH 10 ML FLUSH IV FLUSH PRN (22:30)
[2016-08-02 23:07] VITALS: BP 113/61
[2016-08-02 23:32] VITALS: BP 116/59; PULSE 100; RESP 16; TEMP 97.2; O2SAT 96
[2016-08-03] VITALS (9 sets, daily range): BP systolic 93–117; BP diastolic 52–82; PULSE 91–132; RESP 16–18; TEMP 97.3–97.7; O2SAT 92–100
[2016-08-03] MEDS ORDERED: METO25TA3 PO (00:11)
[2016-08-03] MEDS ORDERED: GLUCAGON 1 MG/ML VIAL OTHER PRN (07:45)
[2016-08-03] MEDS ORDERED: BENZONATATE 100 MG CAP PO PRN (07:45)
[2016-08-03] MEDS ORDERED: DEXTROSE 50% IN WATER 50 ML VIAL(D50) IV PUSH PRN (07:45)
[2016-08-03] MEDS ORDERED: BISACODYL 10 MG SUPP RECTAL PRN (07:45)
--- NOTE | 2016-08-03 08:19 | PD.ORT.PN ---
Subjective Subjective Remarks Fall at home and getting out of shower pain to right leg. Previous bilateral total knees admitted due to inability to ambulate and pain in right lower extremity Objective Vitals Vital Signs Date Time Temp Pulse Resp B/P Pulse Ox O2 Delivery O2 Flow Rate FiO2 08/03/16 04:50 97.7 101 16 98/62 93 08/03/16 01:21 102 08/03/16 00:14 Room Air 08/02/16 23:32 97.2 100 16 116/59 96 08/02/16 23:07 52 22 113/61 97 08/02/16 19:26 97 Room Air 08/02/16 19:08 97.5 111 20 98/56 97 I/O 08/02/16 08/02/16 08/02/16 08/03/16 08/03/16 08/03/16 07:00 15:00 23:00 07:00 15:00 23:00 Intake Total 250 ml 440 ml Output Total 0 ml Balance 250 ml 440 ml Intake Oral 440 ml IV Total 250 ml 0 ml Output Urine Total 0 ml # Bowel Movements 0 Result Diagram: 08/02/16192808/02/161928 Other Results Laboratory Tests Test 08/02/16 19:29 Prothrombin Time 10.5 SEC (9.8-11.6) Prothromb Time International 1.0 RATIO Ratio Imaging Last 24 hours Impressions Hip and Pelvis X-Ray 08/02/161920 Signed Impressions: Service Date/Time: Tuesday, August 02, 2016 19:47 - CONCLUSION: Possible right femoral head fracture. CT scan is suggested. Juni Swain MD FACR Femur X-Ray 08/02/161920 Signed Impressions: Service Date/Time: Tuesday, August 02, 2016 19:49 - CONCLUSION: Negative for distal femur fracture. Knee arthroplasty is intact. Femoral head fracture cannot be excluded. Correlation is suggested. Juni Swain MD FACR Chest X-Ray 08/02/161920 Signed Impressions: Service Date/Time: Tuesday, August 02, 2016 19:42 - CONCLUSION: Mild congestive failure without pneumothorax. Juni Swain MD FACR Abdomen/Pelvis CT 08/02/161920 Signed Impressions: Service Date/Time: Tuesday, August 02, 2016 20:48 - CONCLUSION: 1. Compensated cardiomegaly. 2. Extensive degenerative changes in the lumbar spine without rib fracture. 3. Right renal cyst. 4. I do not see an etiology for the patient's right-sided pelvic pain. Juni Swain MD FACR Objective Remarks Bilateral upper extremities: Full range of motion neurovascularly intact Left lower extremity: Full range of motion and neurovascularly intact right lower extremity: Mild tenderness with range of motion of hip. No palpable tenderness over the rami or greater trochanter. She has significant tenderness to palpation over the lateral collateral ligament and distal quads. She has no tenderness over the medial collateral ligament. She is stable to varus and valgus stresses. Knee range of motion is from 0 to 90. Distally she has intact sensation good capillary refills. Strong dorsiflexion and plantar flexion of foot Assessment & Plan Assessment and Plan Contusion and sprain to lateral collateral ligament of knee Weightbearing as tolerated physical therapy to help with ambulation. Walker training Nonoperative treatment from orthopedic standpoint Assess discharge plan for home versus rehabilitation Demar Muñoz Jr. Aug 03, 2016 08:19
[2016-08-03] MEDS: ACETAMINOPHEN/HYDROcodone 325 MG/10 MG TAB PO PRN ×3 (08:24→17:26)
[2016-08-03] MEDS: DOCUSATE SODIUM 50 MG/SENNA 8.6 MG TAB PO SCH ×2 (09:00→21:53)
[2016-08-03] MEDS ORDERED: METOPROLOL TARTRATE 25 MG TAB PO SCH (09:00)
--- NOTE | 2016-08-03 09:16 | RADRPT ---
EXAM DATE/TIME: 08/03/2016 08:33 [facility] COMPARISON: CT ABDOMEN & PELVIS W/O CONTRAST, August 02, 2016, 20:48. CT HIP RIGHT W/O CONTRAST, August 02, 2016, 20:48. INDICATIONS : Pain right hip/groin area. NKI. MEDICAL HISTORY : Carcinoma, breast. Hypertension. Diabetes mellitus type 2. SURGICAL HISTORY : Cholecystectomy. Hysterectomy. Bilateral knee replacements ENCOUNTER: Initial ACUITY: 2 day PAIN SCORE: 3/10 LOCATION: Right hip/thigh TECHNIQUE: Multiplanar, multisequence MRI examination was performed without contrast. FINDINGS: There is a 1 cm focus of altered signal intensity in the posterior lateral right femoral head epiphys eal region showing heterogeneously increased T2 signal and fairly homogeneously diminished T1 signal. The lesion is moderately well-circumscribed. There are no similar bony lesions elsewhere in the visu alized pelvis. Minimal joint fluid present. There are moderate underlying degenerative arthritic nuñez ges present. There is no evidence of adjacent pelvic mass or collection. CONCLUSION: Nonspecific focus of altered signal intensity in lateral aspect of the right femoral head. The appear ance is worrisome for metastatic disease. Correlation with the status of the patient's stated history of breast cancer would be recommended. Correlation with bone scan may also be useful. Rian López MD on August 03, 2016 at 9:06 Board Certified Radiologist. This report was verified electronically.
[2016-08-03] MEDS: ASPIRIN EC 81 MG TABEC PO SCH (10:08)
[2016-08-03] MEDS: glipiZIDE 5 MG TAB PO SCH (10:08)
[2016-08-03] MEDS: APIXABAN 2.5 MG TABLET PO SCH ×2 (10:08→21:53)
[2016-08-03] MEDS: guaiFENesin E.R. 600 MG TAB PO SCH ×2 (10:08→21:53)
[2016-08-03] MEDS: SODIUM CHLORIDE 0.9% FLUSH 10 ML FLUSH IV FLUSH SCH ×2 (10:11→21:54)
[2016-08-03] MEDS: INSULIN NovoLIN REGULAR SUPPLEMENTAL SCALE SQ SCH ×3 (11:00→21:00)
[2016-08-03] MEDS ORDERED: DIGOXIN 0.5 MG/2 ML VIAL IV PUSH ONE (11:30)
--- NOTE | 2016-08-03 11:41 | EKG ---
Date Performed: 08/02/2016 Time Performed: 20:05:36 PTAGE: 89 years EKG: ATRIAL FIBRILLATION WITH ABERRANT CONDUCTION OR VENTRICULAR PREMATURE COMPLEXES LOW QRS VOL TAGE IN PRECORDIAL LEADS NONSPECIFIC T-WAVE ABNORMALITY ABNORMAL RHYTHM ECG PREVIOUS TRACING : 07/01/2016 22.45 DOCTOR: Vincenzo Hatch Interpretating Date/Time 08/03/2016 11:37:47
--- NOTE | 2016-08-03 11:58 | MB ---
cc: [employer] DATE OF CONSULTATION 08/03/2016 INDICATION Atrial fibrillation and congestive heart failure. HISTORY OF PRESENT ILLNESS An 89-year-old female. She follows with Dr. Munguia in the outpatient setting. She presented to the emergency department with leg pain. Apparently she was in the shower seat when she stood up, slipped missing the chair and fell on her side. She is complaining of right-sided thigh pain. Initially in the emergency department heart rate was in the 50s but jumped up to about 110 beats per minute. She has had some chronic mild shortness of breath that seems to be pretty much at her baseline. She was recently started on Eliquis about a month ago by Dr. Munguia. She has prior history of congestive heart failure although she has not noted any significant weight gain or water retention. We are consulted for further recommendations for elevated BNP. PAST MEDICAL HISTORY 1. Restless leg syndrome. 2. Atrial fibrillation on anticoagulation. 3. Congestive heart failure. 4. Prior DVT. 5. Hypertension. 6. COPD 7. Prior C-diff. 8. Nephrolithiasis. 9. Chronic renal insufficiency. 10. Diabetes. 11. Left breast cancer. SOCIAL HISTORY Denies any alcohol, tobacco or drug use. FAMILY HISTORY Denies any family history of early onset cardiac disease or sudden cardiac . ALLERGIES PENICILLIN. SULFA. REPORTED MEDICATIONS 1. Aspirin. 2. Glipizide. 3. Lasix. REVIEW OF SYSTEMS A 12-point review of systems was performed. Negative unless otherwise noted in the History of Present Illness. PHYSICAL EXAMINATION VITAL SIGNS: Temperature 97, pulse 107, blood pressure 105/52 mmHg. GENERAL: Alert and oriented x 3, in no acute distress. HEENT: Exam shows pupils reactive to light and accommodation. Extraocular movements are intact. NECK: No elevation in jugular venous distention. No thyromegaly or lymphadenopathy. No carotid bruits. LUNGS: Clear auscultation with end-expiratory wheeze. CARDIOVASCULAR: Irregular irregular rhythm without murmurs, rubs or gallops. ABDOMEN: Nontender, nondistended. Good bowel sounds. No hepatosplenomegaly. EXTREMITIES: No clubbing, cyanosis or edema. Good peripheral pulses. NEUROLOGIC: Cranial nerves intact. Motor and sensory grossly intact. LABORATORY DATA Sodium 136, potassium 6.0, BUN is 79, creatinine is 2.39. BNP is 448. INR is 1. WBC 6.8, hemoglobin 12.7, platelet count is 186. Electrocardiogram shows atrial fibrillation, PVC, no ischemic changes. ASSESSMENT 1. Atrial fibrillation. 2. History of congestive heart failure. 3. Status post fall with trauma. PLAN She has been seen by Orthopedic Surgery who feel she has had a contusion to the right knee/thigh region. She has no swelling to suggest recurrent DVT. She is also on anticoagulation. From an atrial fibrillation standpoint, she does have tachycardia but she has not been receiving her metoprolol due to relative hypotension. She also has a history of congestive heart failure although right now seems to be fairly well compensated. There is no elevated jugular veins, no lower extremity edema and no bibasilar crackles. Her BMP is probably just chronically elevated. We will start her back up on a low dose of Lasix at 20 mg a day. We will hold off on any initiation of Lasix due to her renal function. I am not sure what her baseline creatinine is but back in June it was as low as 1.7. Due to her hypotension, I will give her a single dose of digoxin, check a level tomorrow morning. We will continue beta jose but with withhold parameters. MD DAVE Cordova/JASBIR /11:24 AM /11:44 AM
[2016-08-03 12:00] LABS: AUTOMATED NEUTROPHIL # 4.1 TH/MM3 (1.8-7.7); BASOPHIL % 0.6 % (0.0-2.0); EOSINOPHIL # 0.4 TH/MM3 (0-0.4); EOSINOPHIL % 5.9 % (0.0-4.0); HEMATOCRIT 33.6 % (35.0-46.0); HEMO FLAGS DIFF FINAL; LYMPH % 22.2 % (9.0-44.0); LYMPHOCYTE # 1.4 TH/MM3 (1.0-4.8); MEAN CELL VOLUME 87.5 FL (80.0-100.0); MEAN CORPUSCULAR HEMOGLOBIN 28.5 PG (27.0-34.0); MEAN CORPUSCULAR HGB CONC 32.6 % (32.0-36.0); NEUT % 64.3 % (16.0-70.0); PLATELET COUNT 176 TH/MM3 (150-450); RED BLOOD COUNT 3.84 MIL/MM3 (4.00-5.30); WHITE BLOOD COUNT 6.4 TH/MM3 (4.0-11.0)
[2016-08-03] MEDS: RESP: ALBUTEROL 2.5 MG/IPRATROPIUM 0.5 MG NEB (SCH) INH ×3 (12:07→21:27)
[2016-08-03] MEDS ORDERED: PILL SPLITTER OTHER PRN (12:15)
[2016-08-03 12:41] LABS: ALKALINE PHOSPHATASE 69 U/L (45-117); ALT (GPT) 31 U/L (10-53); ANION GAP 7 MEQ/L (5-15); AST (GOT) 43 U/L (15-37); BICARBONATE 26.7 MEQ/L (21.0-32.0); BLOOD UREA NITROGEN 81 MG/DL (7-18); CHLORIDE 105 MEQ/L (98-107); GLOMERULAR FILTRATION RATE 17 ML/MIN (>89); POTASSIUM 6.1 MEQ/L (3.5-5.1); SODIUM (NA) 139 MEQ/L (136-145); TOTAL BILIRUBIN ADULT 0.4 MG/DL (0.2-1.0)
--- NOTE | 2016-08-03 13:02 | MB ---
cc: MARISA AVINA DATE OF CONSULTATION 08/03/2016 REASON FOR CONSULTATION Right hip pain. CONSULTING PHYSICIAN Dr. Tra Haider DO HISTORY OF PRESENT ILLNESS Paulette is an 89-year-old female who is examined at bedside. She was at home yesterday when she finished her shower and when she stood up she slipped and fell to the ground. She was complaining of right-sided thigh pain. She was brought by [facility] to the emergency room where they had obtained x-rays and CT of the right femur and right hip and pelvis which showed no acute fractures. She still continues to have difficulty ambulating and orthopedic consult is for evaluation. She has previous bilateral total knee arthroplasties and has been started on aliquots approximately a month ago. She has no other complaints of pain. She is alert and oriented to person, place and time. PAST MEDICAL HISTORY 1. Restless leg syndrome. 2. A-fib with anticoagulation. 3. Congestive heart failure. 4. Prior DVT. 5. Hypertension. 6. COPD. 7. Prior C-diff. 8. Nephrolithiasis. 9. Chronic renal insufficiency. 10. Diabetes. 11. Left breast cancer. 12. Bilateral total knee arthroplasties. SOCIAL HISTORY Denies any alcohol, tobacco or drug use. FAMILY HISTORY Noncontributory. ALLERGIES PENICILLIN. SULFA. REPORTED MEDICATIONS 1. Aspirin. 2. Glipizide. 3. Lasix. 4. Eliquis. 5. Benazepril. REVIEW OF SYSTEMS She denies any fever, chills, blurry vision or double vision. She denies any chest pains, palpitations, shortness of breath or cough. No nausea, vomiting, diarrhea. No dysuria. No chronic rashes, heat or cold intolerance. She does complain of some bruising since beginning Eliquis. Denies any depression or anxiety. PHYSICAL EXAMINATION VITAL SIGNS: Temperature is 97.7 with a pulse of 100, respiratory rate is 18, blood pressure is 97/60 left arm. Pulse oximetry is 92%. GENERAL: She is alert and oriented to person, place and time, in no acute distress. HEENT: Pupils are equal, round and reactive to light and accommodation. Extraocular movements are intact. NECK: Trachea is midline with no lymphadenopathy. No elevated JVD. LUNGS: There is no wheezing or accessory muscle use. CARDIOVASCULAR: She has an irregular rhythm with intact distal pulses. ABDOMEN: Soft, nondistended. EXTREMITIES: Examination of bilateral upper extremities revealed no decreased range of motion or pain with motion of the shoulders, elbows or wrists. She has intact sensation distally over the radial, ulnar and median nerve distributions with good capillary refills. She is able to fully extend her fingers and make fists bilaterally. Examination of the left lower extremity reveals no pain with hip, knee or ankle range of motion. She has intact sensation distally with good capillary refills. She has strong dorsiflexion and plantar flexion of the foot. Examination of the right lower extremity reveals minimal pain with forward flexion and internal and external rotation of the hip. She has no tenderness to palpation over the pubic rami and has minimal tenderness over the trochanteric bursa. She has significant tenderness over the lateral collateral ligament and over the distal lateral quads. She has no tenderness over the medial collateral ligament. She is stable to varus and valgus stresses. She has negative anterior and posterior drawer sign. She has a well-healed incision from a total knee. Distally she has intact sensation with good capillary refills. She has strong dorsiflexion and plantar flexion of the foot. LABORATORY DATA White blood cell count is 6.4 with a hemoglobin of 10.9 and a hematocrit of 33.6. Coagulation has INR of 1.0 with an APTT of 23.5. Potassium was 6.0 and has elevated BUN of 79 and creatinine of 2.39. B-natriuretic peptide is elevated at 448. IMAGING STUDIES X-rays are reviewed of the hip and pelvis x-ray which both obtained 08/02/2016 which showed no acute fractures or dislocations of the proximal femur or pelvis. The head is concentrically reduced to the acetabulum. Femur x-rays, AP and lateral views, also obtained on 08/02/2016 revealed no acute fractures of the femur. Total knee prosthesis is well seated and intact. No loosening or fractures adjacent to the prosthesis. Lower extremity CT as well as abdominal were also reviewed which reveal no acute fractures. DIAGNOSIS Right knee contusion with sprain to lateral collateral ligament and muscular strain of the lateral quads. PLAN AT THIS POINT 1. Continue to be weightbearing as tolerated and work with physical therapy. 2. Medical will continue to evaluate blood pressure. 3. Cardiology will continue to follow due to atrial fibrillation. 4. We will continue to assess with physical therapy whether home discharge or rehab will be necessary. The patient's x-rays and plan are reviewed and agreed to by Dr. Avina and we will continue to follow her to see her progression. Thank you for the consultation. Dictated by: Mynor Muñoz PA-C Demar uMñoz PA-C I also saw and examined this patient. History, past medical history, social history, review of systems, physical exam, radiographs, assessment, and plan were also reviewed. Plan on nonoperative treatment. A mid-level provider in my office (nurse practitioner or physician ophthalmic surgical assistant) may see this patient on follow-up visits and continue to implement the objectives of this plan including : Starting or adjusting medications, injections, cast application, orthotics, brace application, physical therapy, radiological studies (including x-ray, MRI , CT, ultrasound, bone scan), vascular studies, neurologic studies, specialist consultation, and proceeding with surgical management, as appropriate. H/SSB /12:30 PM /12:48 PM DOLORES
[2016-08-03] MEDS ORDERED: SODIUM POLYSTYRENE SULFONATE SUSP 15 GM/60 ML CUP PO ONE (13:45)
--- NOTE | 2016-08-03 13:57 | HHI.HP ---
History of Present Illness Service Family medicine Primary Care Physician Tra Haider, DO Admission Diagnosis right leg pain, difficulty ambulating, afib, chf Diagnoses: History of Present Illness Patient is a very pleasant 89 year old female who is admitted to hospital status post a fall in the bathroom. When she was taking a shower she slipped while she was trying to sit back on shower chair. She reports right hip, thigh , and knee pain. She has already been seen by orthopedics and XRAYs and CT obtained with no fracture noted. She also has a history of diabetes, AFIB, CHF , prior DVT, and chronic renal insufficiency. Cardiology has been consulted for CHF and AFIB. Nephrology consulted for worsening renal indices. Review of Systems Constitutional: DENIES: Fatigue, Fever, Chills, Dizziness Ears, nose, mouth, throat: COMPLAINS OF: Sinus Pain Respiratory: COMPLAINS OF: Cough, DENIES: Sputum production, Shortness of breath Cardiovascular: DENIES: Chest pain, Syncope, Lower Extremity Edema Gastrointestinal: DENIES: Abdominal pain, Constipation, Diarrhea, Nausea, Vomiting Musculoskeletal: COMPLAINS OF: Joint pain, Muscle aches, Stiffness Integumentary: DENIES: Pruritus, Rash Neurologic: COMPLAINS OF: Poor Balance, DENIES: Headache, Seizures Psychiatric: DENIES: Anxiety, Depression Past Family Social History Allergies: Coded Allergies: Penicillin (Verified Allergy, Unknown, 08/02/16) Sulfa (Verified Allergy, Unknown, 08/02/16) Uncoded Allergies: Phenobarbitol (Allergy, Severe, Hives, 07/01/16) Past Medical History Patient has history of restless leg syndrome, atrial fibrillation chronically anticoagulated, history of congestive heart failure, history of DVT bilateral lower extremities, hypertension, history of stress incontinence, history of COPD , history of C. difficile colitis, history of kidney stones, history of chronic renal insufficiency, and DM. Past Surgical History The patient's past surgical history is significant for bilateral knee replacements, bilateral cataract surgery, parathyroidectomy, hysterectomy, cholecystectomy, hemorrhoidectomy, left breast lumpectomy. Reported Medications Reported Meds & Active Scripts Active Tessalon Perles (Benzonatate) 100 Mg Cap 200 Mg PO TID PRN Mucinex ER 12 HR (Guaifenesin) 600 Mg Rush 600 Mg PO BID Nebulizer 1 Mis Mis 1 Ea .ROUTE DIRECTED Duoneb (Ipratropium-Albuterol Neb) 0.5-2.5 Mg/3 Ml Neb 1 Ampule INH Q4HR NEB Benazepril (Benazepril HCl) 20 Mg Tab 20 Mg PO DAILY Eliquis (Apixaban) 2.5 Mg Tab 2.5 Mg PO BID [Spironolactone] 25 MG Tab 12.5 Mg PO DAILY Reported Metoprolol Tartrate 25 Mg Tab 25 Mg PO BID Aspirin 81 Mg Tabdr 81 Mg PO DAILY Lasix (Furosemide) 40 Mg Tab 40 Mg PO DAILY Active Ordered Medications Current Medications Medications (Trade) Dose Ordered Sig/Jaycee Route Start Time Stop Time Status Last Admin (NS Flush) 2 ml UNSCH PRN IV FLUSH 08/02/16 22:30 (NS Flush) 2 ml BID IV FLUSH 08/03/16 09:00 08/03/16 10:11 (Narcan Inj) 0.4 mg UNSCH PRN IV 08/02/16 22:30 ([place] 10-325 Mg) 1 tab Q4H PRN PO 08/02/16 22:45 08/03/16 08:24 (Natty-Colace) 2 tab BID PO 08/03/16 09:00 (Dulcolax Supp) 10 mg DAILY PRN RECTAL 08/03/16 07:45 (D50w (Vial) Inj) 25 ml UNSCH PRN IV PUSH 08/03/16 07:45 (Glucagon Inj) 1 mg UNSCH PRN OTHER 08/03/16 07:45 (Eliquis) 2.5 mg BID PO 08/03/16 09:00 08/03/16 10:08 (Ecotrin Ec) 81 mg DAILY PO 08/03/16 09:00 08/03/16 10:08 (Tessalon) 200 mg TID PRN PO 08/03/16 07:45 (Glucotrol) 5 mg DAILY PO 08/03/16 09:00 08/03/16 10:08 (Mucinex Er) 600 mg BID PO 08/03/16 09:00 08/03/16 10:08 (Lopressor) 12.5 mg BID PO 08/03/16 21:00 (Pill Splitter) 1 ea UNSCH PRN OTHER 08/03/16 12:15 (Kayexalate Liq) 30 gm ONCE ONCE PO 08/03/16 13:30 08/03/16 13:31 UNV Family History Mother from Cancer. Social History Denies smoking Occasional ETOH use Currently staying with Daughter Physical Exam Vital Signs Vital Signs Date Time Temp Pulse Resp B/P Pulse Ox O2 Delivery O2 Flow Rate FiO2 08/03/16 12:00 97.7 100 18 97/60 92 08/03/16 08:00 96 Room Air 08/03/16 08:00 97.5 107 18 105/52 95 08/03/16 04:50 97.7 101 16 98/62 93 08/03/16 01:21 102 08/03/16 00:14 Room Air 08/02/16 23:32 97.2 100 16 116/59 96 08/02/16 23:07 52 22 113/61 97 08/02/16 19:26 97 Room Air 08/02/16 19:08 97.5 111 20 98/56 97 Physical Exam GENERAL: This is a alert and cooperative obese female in no apparent distress. SKIN: Ecchymoses noted on left arm. Cool and dry. NECK: Trachea midline. No JVD, Supple and nontender. CARDIOVASCULAR: Regular rate and rhythm without murmurs, gallops, or rubs. RESPIRATORY: Clear to auscultation. Breath sounds equal bilaterally. No wheezes , rales, or rhonchi. GASTROINTESTINAL: Abdomen soft, non-tender, nondistended. No guarding. MUSCULOSKELETAL: Extremities without clubbing, cyanosis, or edema. Joint tenderness noted in right knee and thigh region. Negative Homans sign bilaterally. NEUROLOGICAL: Awake and alert. Normal speech. Laboratory Laboratory Tests Test 08/02/16 08/02/16 08/03/16 19:29 21:49 11:29 White Blood Count 6.8 6.4 Red Blood Count 4.43 3.84 Hemoglobin 12.7 10.9 Hematocrit 38.2 33.6 Mean Corpuscular Volume 86.1 87.5 Mean Corpuscular Hemoglobin 28.7 28.5 Mean Corpuscular Hemoglobin 33.3 32.6 Concent Red Cell Distribution Width 14.9 15.0 Platelet Count 186 176 Mean Platelet Volume 8.5 8.2 Neutrophils (%) (Auto) 68.9 64.3 Lymphocytes (%) (Auto) 18.6 22.2 Monocytes (%) (Auto) 6.4 7.0 Eosinophils (%) (Auto) 5.3 5.9 Basophils (%) (Auto) 0.8 0.6 Neutrophils # (Auto) 4.7 4.1 Lymphocytes # (Auto) 1.3 1.4 Monocytes # (Auto) 0.4 0.4 Eosinophils # (Auto) 0.4 0.4 Basophils # (Auto) 0.1 0.0 CBC Comment DIFF FINAL DIFF FINAL Differential Comment Prothrombin Time 10.5 Prothromb Time International 1.0 Ratio Activated Partial 23.5 Thromboplast Time Sodium Level 136 139 Potassium Level 6.0 6.1 Chloride Level 104 105 Carbon Dioxide Level 22.5 26.7 Anion Gap 10 7 Blood Urea Nitrogen 79 81 Creatinine 2.39 2.63 Estimat Glomerular Filtration 19 17 Rate Random Glucose 88 106 Calcium Level 9.2 8.8 Magnesium Level 2.6 Total Bilirubin 0.4 0.4 Aspartate Amino Transf 52 43 (AST/SGOT) Alanine Aminotransferase 31 31 (ALT/SGPT) Alkaline Phosphatase 82 69 B-Type Natriuretic Peptide 448 Total Protein 7.8 6.6 Albumin 3.6 3.0 Lipase 476 Thyroid Stimulating Hormone 1.720 3rd Gen Urine Color LIGHT-YELLOW Urine Turbidity CLEAR Urine pH 5.0 Urine Specific Gal[place] 1.008 Urine Protein NEG Urine Glucose (UA) NEG Urine Ketones NEG Urine Occult Blood NEG Urine Nitrite NEG Urine Bilirubin NEG Urine Urobilinogen LESS THAN 2.0 Urine Leukocyte Esterase NEG Urine WBC LESS THAN 1 Urine Squamous Epithelial <1 Cells Urine Hyaline Casts 4 Microscopic Urinalysis Comment CULT NOT INDICATED Result Diagram: 08/03/16 1129 08/03/16 1129 Imaging Last 48 hours Impressions Hip MRI 08/03/16 0000 Signed Impressions: Service Date/Time: Wednesday, August 03, 2016 08:33 - CONCLUSION: Nonspecific focus of altered signal intensity in lateral aspect of the right femoral head. The appearance is worrisome for metastatic disease. Correlation with the status of the patient's stated history of breast cancer would be recommended. Correlation with bone scan may also be useful. Rian López MD Hip and Pelvis X-Ray 08/02/161920 Signed Impressions: Service Date/Time: Tuesday, August 02, 2016 19:47 - CONCLUSION: Possible right femoral head fracture. CT scan is suggested. Juni Swain MD FACR Femur X-Ray 08/02/161920 Signed Impressions: Service Date/Time: Tuesday, August 02, 2016 19:49 - CONCLUSION: Negative for distal femur fracture. Knee arthroplasty is intact. Femoral head fracture cannot be excluded. Correlation is suggested. Juni Swain MD FACR Chest X-Ray 08/02/161920 Signed Impressions: Service Date/Time: Tuesday, August 02, 2016 19:42 - CONCLUSION: Mild congestive failure without pneumothorax. Juni Swain MD FACR Abdomen/Pelvis CT 08/02/161920 Signed Impressions: Service Date/Time: Tuesday, August 02, 2016 20:48 - CONCLUSION: 1. Compensated cardiomegaly. 2. Extensive degenerative changes in the lumbar spine without rib fracture. 3. Right renal cyst. 4. I do not see an etiology for the patient's right-sided pelvic pain. Juni Swain MD FACR Lower Extremity CT 08/02/16 0000 Signed Impressions: Service Date/Time: Tuesday, August 02, 2016 20:48 - CONCLUSION: Negative for fracture. Juni Swain MD FACR Assessment and Plan Problem List: (1) Inability to ambulate due to hip Status: Acute Plan: Patient s/p fall in bathroom. Ortho consulted. Xray and CT with no acute fracture. Pain medication PRN. PT and OT ordered. (2) Acute on chronic renal failure Status: Acute Plan: Worsening renal indices. GFR 17. Patient is usually on lasix which is on hold. Nephrology consulted for recommendations. Gently IV hydration initiated. (3) Hyperkalemia Status: Acute Plan: Kayexalate 30 gram X 1 dose given for K of 6.1. Recheck in AM (4) Diabetes Status: Chronic Plan: BS AC and HS. Well controlled on glipizide. SS as needed. (5) Congestive heart failure Status: Chronic Plan: BNP elevated however per cardiology note could be chronic. Occasional cough. No SOB noted. (6) Anemia Status: Acute Plan: HGB 10.9 will monitor. (7) Atrial fibrillation with RVR Status: Acute Plan: On low dose metoprolol and digoxin given per cardiology. Assessment and Plan Cardiology and nephrology consulted. Discussed Condition With Assessment and plan discussed with Jazmine Beatty [facility] Aug 03, 2016 13:57
[2016-08-03] MEDS: SODIUM CHLOR 0.9% 1000 ML INJ 1,000 ML IV SCH (17:28)
--- NOTE | 2016-08-03 20:52 | MB ---
cc: MICHELLE MCMULLEN MD DATE OF CONSULTATION 08/03/09 REASON FOR CONSULTATION Elevated BUN and creatinine for evaluation. HISTORY OF PRESENT ILLNESS This is an 89 year old female with past medical history of chronic kidney disease, history of atrial fibrillation, ischemic heart disease, congestive heart failure, deep venous thrombosis, hypertension, chronic obstructive pulmonary disease, history of renal stone, diabetes mellitus who came to the hospital because of history of fall. I was called to see the patient because of elevated BUN and creatinine. The patient has history of chronic kidney disease and she was seen by the clinical law professor up [place] and she was admitted here last month. Her creatinine was 1.7-1.8. This is probably her baseline. Now she is admitted with a creatinine of 2.3 and it has gone up to 2.6. The patient was admitted mainly because she fell at home in the bathroom. She slipped. There was no loss of consciousness. She was seen by orthopedics and she had multiple x-rays done and there was no fracture. She was also found to have high potassium of 6.1. The patient was taking spironolactone before she came in here. She denies any nausea or vomiting, no shortness of breath. She denies any headache or dizziness. There is no chest pain. PAST MEDICAL HISTORY 1. Hypertension. 2. Diabetes mellitus 3. 4. Chronic kidney disease 5. Atrial fibrillation 6. History of deep venous thrombosis 7. Chronic obstructive pulmonary disease 8. History of renal stone. PAST SURGICAL HISTORY 1. History of bilateral knee replacement. 2. Cataract surgery 3. Parathyroidectomy. 4. Hysterectomy 5. Cholecystectomy 6. Left breast lumpectomy 7. Hemorrhoidectomy REVIEW OF SYSTEMS There is no history of fever, no sore throat, no or blurring of vision. No shortness of breath. No chest pain. No palpitation. Her appetite is not very good. She occasionally has nausea. There is no vomiting. No history of diarrhea. Denies taking an nonsteroidal antiinflammatory drugs. No history of dysuria or hematuria. SOCIAL HISTORY The patient is a and she lives up [place] alone and here she is visiting the daughter and supposed to go back up [place] next month. There is no history of smoking or alcoholism. FAMILY HISTORY Noncontributory. ALLERGIES PENICILLIN PHENOBARBITAL SULFA MEDICATIONS Currently, 1. IV fluids 42 an hour normal saline 2. Natty-Colace 2 tablets twice a day 3. Eliquis 2.5 mg twice a day 4. Mucinex 600 mg twice a day 5. Metoprolol 12.5 mg twice a day 6. Pepcid 10 mg twice a day 7. Aspirin 81 mg daily 8. Glipizide 5 mg once a day 9. Duoneb nebulizer 10. Regular insulin sliding scale 11. [place] as needed. PHYSICAL EXAMINATION GENERAL: The patient is awake, alert. She is not in acute distress. VITAL SIGNS: Last blood pressure 98/62, temperature 97.3, oxygen saturation 92-97%. HEENT: Pupils equally reacting to light. Nonicteric sclerae. Conjunctivae pale. NECK: Supple. JVD is not elevated. LUNGS: Bilateral decreased air entry with occasional wheezing. HEART: S1, S2 irregular rhythm ABDOMEN: Soft, lax, distended. No tenderness. Bowel sounds positive. EXTREMITIES: No edema. LABORATORY DATA WBC count is 6.4, hemoglobin 10.9, platelet count 176, neutrophils 64.3%. Eosinophils 5.9%. Sodium 139, potassium 6.1, chloride 105, bicarb 26.7, BUN 81, creatinine 2.63. Glucose 106, calcium 8.8, AST 43, ALT 31, total protein 6.6, albumin 3.0. BNP 448. TSH 1.7. Lipase 476. INR 1.0. Urinalysis showing she has no protein. IMAGING STUDIES The patient had MRI of the head done which shows nonspecific altered signal intensity worrisome for any metastatic disease. Bone scan is recommended. CT of the abdomen and pelvis was done without IV contrast and it shows compensated cardiomyopathy, degenerative change in lumbar spine. Right renal cyst. The kidneys are reported as otherwise unremarkable 1.8 cm cyst in the right kidney. ASSESSMENT AND PLAN 1. Chronic kidney disease with acute kidney injury. 2. History of fall 3. Hypertension 4. Diabetes mellitus 5. Hypokalemia 6. History of congestive heart failure 7. Anemia 8. Atrial fibrillation The patient has chronic kidney disease and has no proteinuria. Most likely she has hypertensive or renal vascular disease with a possibility of also diabetic nephropathy. Her potassium is high because she was on spironolactone. She received Kayexalate, the last dose was just given in front of me. I discussed with the family to restrict the potassium in diet especially the banana which was next to her bed. Most likely the high potassium was related to spironolactone which she was taking. There was some also acute worsening of the renal function from her baseline and this could be prerenal with overdiuresis or cardiorenal syndrome. Her blood pressure is on the lower side so there may be a possibility of acute tubular necrosis or possible interstitial nephritis since she has ____. I will check the urine eosinophils and maybe we will continue the gentle hydration and holding the diuretic at present and follow the BUN and creatinine and the potassium levels. Thank you for the consultation and I will follow the patient while she is in the hospital. MD STEPHEN Solis/ /8:19 PM /8:30 PM
[2016-08-03] MEDS: FAMOTIDINE 20 MG TAB PO SCH (21:53)
[2016-08-03] MEDS: METOPROLOL TARTRATE 25 MG TAB PO SCH (21:53)
[2016-08-04] VITALS (11 sets, daily range): BP systolic 101–125; BP diastolic 50–72; PULSE 94–128; RESP 18; TEMP 97.4–98.7; O2SAT 85–98
[2016-08-04] MEDS: ACETAMINOPHEN/HYDROcodone 325 MG/10 MG TAB PO PRN ×3 (00:37→11:57)
[2016-08-04] MEDS: RESP: ALBUTEROL 2.5 MG/IPRATROPIUM 0.5 MG NEB (SCH) INH ×6 (00:51→21:04)
[2016-08-04] MEDS: INSULIN NovoLIN REGULAR SUPPLEMENTAL SCALE SQ SCH ×4 (06:23→21:00)
--- NOTE | 2016-08-04 08:27 | PD.CARD.PN ---
Subjective Subjective Remarks denies CV complaints Objective Vital Signs / I&O Vital Signs Date Time Temp Pulse Resp B/P Pulse Ox O2 Delivery O2 Flow Rate FiO2 08/04/16 04:12 98.7 128 18 109/52 94 08/04/16 03:40 95 Venturi Mask 3.00 24 08/04/16 00:54 98 Venturi Mask 24 08/03/16 23:28 97.6 132 18 117/82 100 08/03/16 21:37 99 Venturi Mask 24 08/03/16 21:30 99 Nasal Cannula 2.00 08/03/16 20:15 Room Air 08/03/16 19:55 97.5 124 18 93/54 100 08/03/16 16:00 97.3 91 18 98/62 97 08/03/16 12:00 97.7 100 18 97/60 92 I/O 08/03/16 08/03/16 08/03/16 08/04/16 08/04/16 08/04/16 07:00 15:00 23:00 07:00 15:00 23:00 Intake Total 440 ml 720 ml 240 ml 120 ml Output Total 0 ml 400 ml Balance 440 ml 720 ml 240 ml -280 ml Intake Oral 440 ml 720 ml 240 ml 120 ml IV Total 0 ml Output Urine Total 0 ml 400 ml # Voids 1 1 # Bowel Movements 0 0 0 0 Physical Exam GENERAL: Well-nourished, well-developed patient in no apparent distress. NECK: No JVD. No carotid bruit. CARDIOVASCULAR: IR IR tachy S1/S2 no murmur, rub, or gallop. RESPIRATORY: No accessory muscle use. Clear to auscultation. Breath sounds equal bilaterally. GASTROINTESTINAL: Abdomen soft, non-tender, nondistended. MUSCULOSKELETAL: Extremities without clubbing, cyanosis, or edema. Laboratory Laboratory Tests Test 08/03/16 11:29 White Blood Count 6.4 TH/MM3 Red Blood Count 3.84 MIL/MM3 Hemoglobin 10.9 GM/DL Hematocrit 33.6 % Mean Corpuscular Volume 87.5 FL Mean Corpuscular Hemoglobin 28.5 PG Mean Corpuscular Hemoglobin 32.6 % Concent Red Cell Distribution Width 15.0 % Platelet Count 176 TH/MM3 Mean Platelet Volume 8.2 FL Neutrophils (%) (Auto) 64.3 % Lymphocytes (%) (Auto) 22.2 % Monocytes (%) (Auto) 7.0 % Eosinophils (%) (Auto) 5.9 % Basophils (%) (Auto) 0.6 % Neutrophils # (Auto) 4.1 TH/MM3 Lymphocytes # (Auto) 1.4 TH/MM3 Monocytes # (Auto) 0.4 TH/MM3 Eosinophils # (Auto) 0.4 TH/MM3 Basophils # (Auto) 0.0 TH/MM3 CBC Comment DIFF FINAL Differential Comment Sodium Level 139 MEQ/L Potassium Level 6.1 MEQ/L Chloride Level 105 MEQ/L Carbon Dioxide Level 26.7 MEQ/L Anion Gap 7 MEQ/L Blood Urea Nitrogen 81 MG/DL Creatinine 2.63 MG/DL Estimat Glomerular Filtration 17 ML/MIN Rate Random Glucose 106 MG/DL Calcium Level 8.8 MG/DL Total Bilirubin 0.4 MG/DL Aspartate Amino Transf 43 U/L (AST/SGOT) Alanine Aminotransferase 31 U/L (ALT/SGPT) Alkaline Phosphatase 69 U/L Total Protein 6.6 GM/DL Albumin 3.0 GM/DL Assessment and Plan Problem List: (1) Atrial fibrillation with RVR (2) CHF exacerbation Assessment and Plan a-fib RVR - unable to increase metoprolol due to hypotension. Will start daily digoxin 125 mcg and check dig level CHF - well compensated, no diuretics with worsening renal function Problem Qualifiers (1) CHF exacerbation: Qualified Code: I50.9 - Acute on chronic congestive heart failure, unspecified congestive heart failure type Fede Gonzalez Aug 04, 2016 08:26
[2016-08-04] MEDS: guaiFENesin E.R. 600 MG TAB PO SCH ×2 (09:33→21:00)
[2016-08-04] MEDS: ASPIRIN EC 81 MG TABEC PO SCH (09:33)
[2016-08-04] MEDS: METOPROLOL TARTRATE 25 MG TAB PO SCH ×2 (09:33→21:00)
[2016-08-04] MEDS: glipiZIDE 5 MG TAB PO SCH (09:34)
[2016-08-04] MEDS: APIXABAN 2.5 MG TABLET PO SCH ×2 (09:34→21:00)
[2016-08-04] MEDS: FAMOTIDINE 20 MG TAB PO SCH ×2 (09:34→21:00)
[2016-08-04] MEDS: SODIUM CHLORIDE 0.9% FLUSH 10 ML FLUSH IV FLUSH SCH ×2 (09:34→21:00)
[2016-08-04] MEDS: DOCUSATE SODIUM 50 MG/SENNA 8.6 MG TAB PO SCH ×2 (09:34→21:00)
--- NOTE | 2016-08-04 10:22 | EKG ---
Date Performed: 08/04/2016 Time Performed: 06:04:20 PTAGE: 89 years EKG: Atrial fibrillation with rapid ventricular response with PVC(s) Extensive T wave changes ar e nonspecific Abnormal ECG PREVIOUS TRACING : 08/03/2016 13.41 DOCTOR: Maldonado Figueredo Interpretating Date/Time 08/04/2016 10:20:44
[2016-08-04 10:55] LABS: AUTOMATED NEUTROPHIL # 4.6 TH/MM3 (1.8-7.7); BASOPHIL % 0.4 % (0.0-2.0); EOSINOPHIL # 0.2 TH/MM3 (0-0.4); EOSINOPHIL % 3.5 % (0.0-4.0); HEMATOCRIT 35.3 % (35.0-46.0); HEMO FLAGS DIFF FINAL; MEAN CELL VOLUME 88.4 FL (80.0-100.0); MEAN CORPUSCULAR HEMOGLOBIN 29.8 PG (27.0-34.0); MEAN CORPUSCULAR HGB CONC 33.7 % (32.0-36.0); MONO % 8.2 % (0.0-8.0); NEUT % 71.9 % (16.0-70.0); PLATELET COUNT 168 TH/MM3 (150-450); RED BLOOD COUNT 3.99 MIL/MM3 (4.00-5.30); RED CELL DISTRIBUTION WIDTH 15.3 % (11.6-17.2); WHITE BLOOD COUNT 6.5 TH/MM3 (4.0-11.0)
--- NOTE | 2016-08-04 11:29 | PD.ORT.PN ---
Subjective Subjective Remarks Improving with pain control. Was able to ambulate with a walker Objective Vitals Vital Signs Date Time Temp Pulse Resp B/P Pulse Ox O2 Delivery O2 Flow Rate FiO2 08/04/16 08:00 97.6 119 18 101/50 96 08/04/16 07:45 107 08/04/16 04:12 98.7 128 18 109/52 94 08/04/16 03:40 95 Venturi Mask 3.00 24 08/04/16 00:54 98 Venturi Mask 24 08/03/16 23:28 97.6 132 18 117/82 100 08/03/16 21:37 99 Venturi Mask 24 08/03/16 21:30 99 Nasal Cannula 2.00 08/03/16 20:15 Room Air 08/03/16 19:55 97.5 124 18 93/54 100 08/03/16 16:00 97.3 91 18 98/62 97 08/03/16 12:00 97.7 100 18 97/60 92 I/O 08/03/16 08/03/16 08/03/16 08/04/16 08/04/16 08/04/16 07:00 15:00 23:00 07:00 15:00 23:00 Intake Total 440 ml 720 ml 240 ml 120 ml Output Total 0 ml 400 ml Balance 440 ml 720 ml 240 ml -280 ml Intake Oral 440 ml 720 ml 240 ml 120 ml IV Total 0 ml Output Urine Total 0 ml 400 ml # Voids 1 1 # Bowel Movements 0 0 0 0 Result Diagram: 08/04/16 0941 08/03/16 1129 Imaging Last 24 hours Impressions Hip and Pelvis X-Ray 08/02/161920 Signed Impressions: Service Date/Time: Tuesday, August 02, 2016 19:47 - CONCLUSION: Possible right femoral head fracture. CT scan is suggested. Juni Swain MD FACR Femur X-Ray 08/02/161920 Signed Impressions: Service Date/Time: Tuesday, August 02, 2016 19:49 - CONCLUSION: Negative for distal femur fracture. Knee arthroplasty is intact. Femoral head fracture cannot be excluded. Correlation is suggested. Juni Swain MD FACR Chest X-Ray 08/02/161920 Signed Impressions: Service Date/Time: Tuesday, August 02, 2016 19:42 - CONCLUSION: Mild congestive failure without pneumothorax. Juni Swain MD FACR Abdomen/Pelvis CT 08/02/161920 Signed Impressions: Service Date/Time: Tuesday, August 02, 2016 20:48 - CONCLUSION: 1. Compensated cardiomegaly. 2. Extensive degenerative changes in the lumbar spine without rib fracture. 3. Right renal cyst. 4. I do not see an etiology for the patient's right-sided pelvic pain. Juni Swain MD FACR Objective Remarks Bilateral upper extremities: Full range of motion neurovascularly intact Left lower extremity: Full range of motion and neurovascularly intact right lower extremity: Mild tenderness with range of motion of hip. No palpable tenderness over the rami or greater trochanter. She has mild tenderness to palpation over the lateral collateral ligament and greater pain over the distal quads. She has no tenderness over the medial collateral ligament. She is stable to varus and valgus stresses. Knee range of motion is from 0 to 90. Distally she has intact sensation good capillary refills. Strong dorsiflexion and plantar flexion of foot Assessment & Plan Assessment and Plan Contusion and sprain to quadriceps muscles as well as lateral collateral ligament of knee Weightbearing as tolerated physical therapy to help with ambulation. Walker training Nonoperative treatment from orthopedic standpoint Assess discharge plan for home versus rehabilitation Demar Muñoz Jr. Aug 04, 2016 11:29
--- NOTE | 2016-08-04 11:29 | EKG ---
Date Performed: 08/03/2016 Time Performed: 13:41:59 PTAGE: 89 years EKG: ATRIAL FIBRILLATION WITH RAPID VENTRICULAR RESPONSE LOW QRS VOLTAGE IN PRECORDIAL LEADS NON SPECIFIC T-WAVE ABNORMALITY ABNORMAL ECG PREVIOUS TRACING : 08/02/2016 20.05 DOCTOR: Maldonado Figueredo Interpretating Date/Time 08/04/2016 11:29:01
--- NOTE | 2016-08-04 11:33 | HHI.PR ---
Subjective Remarks Patient alert and cooperative. Denies any CP or SOB. Objective Vital Signs Date Time Temp Pulse Resp B/P Pulse Ox O2 Delivery O2 Flow Rate FiO2 08/04/16 08:00 97.6 119 18 101/50 96 08/04/16 07:45 107 08/04/16 04:12 98.7 128 18 109/52 94 08/04/16 03:40 95 Venturi Mask 3.00 24 08/04/16 00:54 98 Venturi Mask 24 08/03/16 23:28 97.6 132 18 117/82 100 08/03/16 21:37 99 Venturi Mask 24 08/03/16 21:30 99 Nasal Cannula 2.00 08/03/16 20:15 Room Air 08/03/16 19:55 97.5 124 18 93/54 100 08/03/16 16:00 97.3 91 18 98/62 97 08/03/16 12:00 97.7 100 18 97/60 92 I/O 08/03/16 08/03/16 08/03/16 08/04/16 08/04/16 08/04/16 07:00 15:00 23:00 07:00 15:00 23:00 Intake Total 440 ml 720 ml 240 ml 120 ml Output Total 0 ml 400 ml Balance 440 ml 720 ml 240 ml -280 ml Intake Oral 440 ml 720 ml 240 ml 120 ml IV Total 0 ml Output Urine Total 0 ml 400 ml # Voids 1 1 # Bowel Movements 0 0 0 0 Result Diagram: 08/04/16 0941 08/03/16 1129 Imaging Last 48 hours Impressions Hip MRI 08/03/16 0000 Signed Impressions: Service Date/Time: Wednesday, August 03, 2016 08:33 - CONCLUSION: Nonspecific focus of altered signal intensity in lateral aspect of the right femoral head. The appearance is worrisome for metastatic disease. Correlation with the status of the patient's stated history of breast cancer would be recommended. Correlation with bone scan may also be useful. Rian López MD Hip and Pelvis X-Ray 08/02/161920 Signed Impressions: Service Date/Time: Tuesday, August 02, 2016 19:47 - CONCLUSION: Possible right femoral head fracture. CT scan is suggested. Juni Swain MD FACR Femur X-Ray 4/10/17 1921 Signed Impressions: Service Date/Time: Tuesday, August 02, 2016 19:49 - CONCLUSION: Negative for distal femur fracture. Knee arthroplasty is intact. Femoral head fracture cannot be excluded. Correlation is suggested. Juni Swain MD FACR Chest X-Ray 08/02/161920 Signed Impressions: Service Date/Time: Tuesday, August 02, 2016 19:42 - CONCLUSION: Mild congestive failure without pneumothorax. Juni Swain MD FACR Abdomen/Pelvis CT 08/02/161920 Signed Impressions: Service Date/Time: Tuesday, August 02, 2016 20:48 - CONCLUSION: 1. Compensated cardiomegaly. 2. Extensive degenerative changes in the lumbar spine without rib fracture. 3. Right renal cyst. 4. I do not see an etiology for the patient's right-sided pelvic pain. Juni Swain MD FACR Other Results GENERAL: Alert and cooperative SKIN: Warm and dry. Bruising on left arm HEAD: Normocephalic. EYES: No scleral icterus. No injection or drainage. NECK: Supple, trachea midline. No JVD or lymphadenopathy. CARDIOVASCULAR: Regular rate and rhythm without murmurs, gallops, or rubs. RESPIRATORY: Breath sounds equal bilaterally. No accessory muscle use. GASTROINTESTINAL: Abdomen soft, non-tender, nondistended. MUSCULOSKELETAL: No cyanosis, or edema. BACK: Nontender without obvious deformity. No CVA tenderness. Medications and IVs Current Medications Medications (Trade) Dose Ordered Sig/Jaycee Route Start Time Stop Time Status Last Admin (NS Flush) 2 ml UNSCH PRN IV FLUSH 08/02/16 22:30 (NS Flush) 2 ml BID IV FLUSH 08/03/16 09:00 08/04/16 09:34 (Narcan Inj) 0.4 mg UNSCH PRN IV 08/02/16 22:30 (Orrum 10-325 Mg) 1 tab Q4H PRN PO 08/02/16 22:45 08/04/16 05:18 (Natty-Colace) 2 tab BID PO 08/03/16 09:00 08/04/16 09:34 (Dulcolax Supp) 10 mg DAILY PRN RECTAL 08/03/16 07:45 (D50w (Vial) Inj) 25 ml UNSCH PRN IV PUSH 08/03/16 07:45 (Glucagon Inj) 1 mg UNSCH PRN OTHER 08/03/16 07:45 (Eliquis) 2.5 mg BID PO 08/03/16 09:00 08/04/16 09:34 (Ecotrin Ec) 81 mg DAILY PO 08/03/16 09:00 08/04/16 09:33 (Tessalon) 200 mg TID PRN PO 08/03/16 07:45 (Glucotrol) 5 mg DAILY PO 08/03/16 09:00 08/04/16 09:34 (Mucinex Er) 600 mg BID PO 08/03/16 09:00 08/04/16 09:33 (Lopressor) 12.5 mg BID PO 08/03/16 21:00 08/04/16 09:33 Miscellaneous 1 ea 1 ea UNSCH PRN OTHER 08/03/16 12:15 (NS 1000 ml Inj) 1,000 ml @ 42 mls/hr [id number] IV 08/03/16 14:00 08/03/16 17:28 (Pepcid) 10 mg BID PO 08/03/16 21:00 08/04/16 09:34 Assessment and Plan Problem List: (1) Inability to ambulate due to hip Status: Acute Plan: Patient s/p fall in bathroom. Ortho consulted. Xray and CT with no acute fracture. Pain medication PRN. PT initiated. Bone scan ordered of right hip for concerns about metastatic disease. (2) Acute on chronic renal failure Status: Acute Plan: Worsening renal indices. GFR 17 yesterday pending today. Patient is usually on lasix which is on hold. Nephrology consulted for recommendations. Gently IV hydration initiated. (3) Hyperkalemia Status: Acute Plan: Kayexalate 30 gram X 1 dose given for K of 6.1 yesterday. Recheck in today pending (4) Diabetes Status: Chronic Plan: BS AC and HS. BS 73-109 will discontinue glipizide. SS as needed. (5) Congestive heart failure Status: Chronic Plan: BNP elevated however per cardiology note could be chronic. Occasional cough. No SOB noted. (6) Anemia Status: Acute Plan: HGB 11.9 will monitor. (7) Atrial fibrillation with RVR Status: Acute Plan: On low dose metoprolol and digoxin given per cardiology. Digoxin level pending. Assessment and Plan Bone scan ordered and labs in AM Glipizide discontinued Discussed Condition With Assessment and plan discussed with Jazmine Beatty Aug 04, 2016 11:33
[2016-08-04 12:06] LABS: BICARBONATE 23.3 MEQ/L (21.0-32.0); DIGOXIN 0.4 NG/ML (0.8-2.0); MAGNESIUM 2.4 MG/DL (1.5-2.5); POTASSIUM 5.3 MEQ/L (3.5-5.1)
--- NOTE | 2016-08-04 13:39 | RADRPT ---
EXAM DATE/TIME: 08/04/2016 08:34 [facility] COMPARISON: MRI HIP RIGHT W/O CONTRAST, August 03, 2016, 8:33. PRIOR BONE SCANS: No correlative bone scan available for comparison. INDICATIONS : Metastatic disease. Patient fall with right hip pain. DOSE: 30.0 mCi Tc99m MDP IV IMAGING: SPECT/CT imaging with fusion was performed. RADIATION DOSE: 11.12 CTDIvol (mGy) MEDICAL HISTORY : Hypertension. Diabetes mellitus type 2. Congestive heart failure. SURGICAL HISTORY : Hysterectomy. Cholecystectomy. ENCOUNTER: Initial ACUITY: 1 day PAIN SCALE: 4/10 LOCATION: Right Hip. TECHNIQUE: Three hours post intravenous administration of radiotracer, whole body bone scan imaging was performe d. FINDINGS: Images demonstrate a homogeneous pattern of uptake in the soft tissue. No hyperemic areas are identi fied. Whole body bone scan demonstrates a normal pattern of uptake throughout the axial and appendic ular skeleton with areas of mild increased uptake in the thoracic and lumbar spine characteristic of degenerative change. The increased uptake in the lumbar spine is associated with hypertrophic facet j oints. No concerning focal areas of increased or decreased uptake are seen. In particular, the focal abnormality identified on recent MRI demonstrates no concerning uptake. To further evaluate the right femoral head, SPECT imaging was performed in sagittal, axial and manzo l planes. Attenuation correction was performed with computed tomography and both the attenuation cor rection and non-attenuation corrected data sets were reviewed. There is a no concerning uptake. CONCLUSION: 1. There are no findings to indicate metastatic disease. There are degenerative changes throughout th e spine. 2. No significant abnormal activity is associated with the right femoral head finding on recent MRI. Based on the appearance and the degenerative changes at the right hip joint the finding is felt to mo st likely be degenerative in etiology. Rian Terry MD on August 04, 2016 at 13:31 Board Certified Radiologist. This report was verified electronically.
[2016-08-04] MEDS: SODIUM CHLOR 0.9% 1000 ML INJ 1,000 ML IV SCH (14:54)
--- NOTE | 2016-08-04 17:06 | HHI.NPPN ---
Subjective General Problems: Anemia, Edema, Heart Disease Renal Failure: Chronic, Acute, Stage IV History of Present Illness 89 year old female with past medical history of chronic kidney disease, history of atrial fibrillation, ischemic heart disease, congestive heart failure, deep venous thrombosis, hypertension, chronic obstructive pulmonary disease, history of renal stone, diabetes mellitus who came to the hospital because of history of fall. I was called to see the patient because of elevated BUN and creatinine. The patient has history of chronic kidney disease and she was seen by the [employer] [facility] operator [facility] and she was admitted here last month. Her creatinine was 1.7-1.8. This is probably her baseline. Additional Remarks Patient is alert, not eating well, no SOB, no nausea. Review of Systems General Constitutional: Fatigue Cardiovascular Cardiac: NESS Gastrointestinal Gastrointestinal: Nausea & Vomiting Objective Data Data 08/03/16 08/04/16 19:00 07:00 Intake Total 720 ml 360 ml Output Total 400 ml Balance 720 ml -40 ml Intake Oral 720 ml 360 ml Output Urine Total 400 ml # Voids 1 1 # Bowel Movements 0 0 Vital Signs Date Time Temp Pulse Resp B/P Pulse Ox O2 Delivery O2 Flow Rate FiO2 08/04/16 12:00 97.6 94 18 125/65 93 08/04/16 11:56 85 Venturi Mask 21 08/04/16 09:10 Room Air 08/04/16 08:00 97.6 119 18 101/50 96 08/04/16 07:45 107 08/04/16 04:12 98.7 128 18 109/52 94 08/04/16 03:40 95 Venturi Mask 3.00 24 08/04/16 00:54 98 Venturi Mask 24 08/03/16 23:28 97.6 132 18 117/82 100 08/03/16 21:37 99 Venturi Mask 24 08/03/16 21:30 99 Nasal Cannula 2.00 08/03/16 20:15 Room Air 08/03/16 19:55 97.5 124 18 93/54 100 -: 08/04/16 0941 08/04/16 0941 Physical Exam General Appearance: No Acute Distress, Comfortable Eyes Eye Exam: Pupils Equal Throat Throat Exam: Oral Mucosa Falman & Moist Pulmonary Resp Exam: Breath Sounds Equal, No Distress, Rhonchi, Decreased Bases, Diminished Breath Sounds Cardiology CV Exam: Regular, Normal Sinus Rhythm Gastrointestinal/Abdomen GI Exam: Soft, Non-Tender, Bowel Sounds Present Extremeties Extremities Exam: Trace Edema Neurologic Neuro Exam: Alert, Awake, Oriented Psychiatric Psych Exam: Appropriate Responses Assessment/Plan Assessment Summary: SRINIVAS/Acute Renal Failure, Dehydration, CHF, CKD Stage IV Electrolyte Assessment: Hyperkalemia Problem List: (1) Hypertension (2) Fall (3) Congestive heart failure (4) Anemia (5) Diabetes (6) Atrial fibrillation with RVR (7) Hyperkalemia (8) Acute on chronic renal failure Plan Patient has adequate urine out put. Creatinine is slightly better. K is normalized. Urine Eosinophils negative. Continue gentle Hydration. Diuretics on hold, follow urine out put and Lasix if needed. Avoid Aldactone due to Hyperkalemia. Problem Qualifiers (1) Fall: Qualified Code: W19.XXXA - Fall, initial encounter Daniela Young MD Aug 04, 2016 17:06
[2016-08-04] MEDS ORDERED: MAGNESIUM HYDROXIDE SUSP 30 ML CUP PO SCH (23:30)
[2016-08-04] MEDS ORDERED: MAGNESIUM HYDROXIDE SUSP 30 ML CUP PO PRN (23:30)
[2016-08-04] MEDS ORDERED: BETAMETHASONE/CLOTRIMAZOLE CREAM 15 GM TOPICAL SCH (23:45)
[2016-08-05] VITALS (9 sets, daily range): BP systolic 91–129; BP diastolic 52–77; PULSE 107–137; RESP 14–20; TEMP 97.6–98.9; O2SAT 95–99
[2016-08-05] MEDS: RESP: ALBUTEROL 2.5 MG/IPRATROPIUM 0.5 MG NEB (SCH) INH ×5 (00:13→16:25)
[2016-08-05] MEDS: INSULIN NovoLIN REGULAR SUPPLEMENTAL SCALE SQ SCH ×4 (06:19→21:18)
[2016-08-05 06:40] LABS: AUTOMATED NEUTROPHIL # 3.9 TH/MM3 (1.8-7.7); BASOPHIL % 0.4 % (0.0-2.0); EOSINOPHIL # 0.3 TH/MM3 (0-0.4); EOSINOPHIL % 4.9 % (0.0-4.0); HEMATOCRIT 32.4 % (35.0-46.0); HEMO FLAGS DIFF FINAL; LYMPH % 20.1 % (9.0-44.0); LYMPHOCYTE # 1.2 TH/MM3 (1.0-4.8); MEAN CELL VOLUME 87.2 FL (80.0-100.0); MEAN CORPUSCULAR HEMOGLOBIN 28.6 PG (27.0-34.0); MEAN CORPUSCULAR HGB CONC 32.8 % (32.0-36.0); MONO % 9.7 % (0.0-8.0); NEUT % 64.9 % (16.0-70.0); PLATELET COUNT 147 TH/MM3 (150-450); RED BLOOD COUNT 3.72 MIL/MM3 (4.00-5.30); RED CELL DISTRIBUTION WIDTH 15.2 % (11.6-17.2); WHITE BLOOD COUNT 6.1 TH/MM3 (4.0-11.0)
--- NOTE | 2016-08-05 06:59 | PD.ORT.PN ---
Subjective Subjective Remarks Patient seen and examined. Has a 4 day history of right leg pain. Pain began after a fall. Pain is mostly in her right thigh. She has a history of right total knee arthroplasty. Pain is improving mildly. Objective Vitals Vital Signs Date Time Temp Pulse Resp B/P Pulse Ox O2 Delivery O2 Flow Rate FiO2 08/05/16 04:00 98.9 120 16 91/59 97 08/05/16 00:00 98.5 125 20 111/54 99 08/04/16 21:08 95 Nasal Cannula 2.00 08/04/16 20:25 110 08/04/16 20:00 Room Air 08/04/16 20:00 98.0 127 18 115/72 97 08/04/16 16:00 97.4 104 18 115/68 97 08/04/16 12:00 97.6 94 18 125/65 93 08/04/16 11:56 85 Venturi Mask 21 08/04/16 09:10 Room Air 08/04/16 08:00 97.6 119 18 101/50 96 08/04/16 07:45 107 I/O 08/04/16 08/04/16 08/04/16 08/05/16 08/05/16 08/05/16 07:00 15:00 23:00 07:00 15:00 23:00 Intake Total 120 ml 822 ml 240 ml 240 ml Output Total 400 ml 400 ml Balance -280 ml 422 ml 240 ml 240 ml Intake Oral 120 ml 600 ml 240 ml 240 ml IV Total 222 ml Output Urine Total 400 ml 400 ml # Voids 2 # Bowel Movements 0 0 0 Result Diagram: 08/04/1641 08/04/16940 Imaging Last 24 hours Impressions Hip and Pelvis X-Ray 08/02/161920 Signed Impressions: Service Date/Time: Tuesday, August 02, 2016 19:47 - CONCLUSION: Possible right femoral head fracture. CT scan is suggested. Juni Swain MD FACR Femur X-Ray 08/02/161920 Signed Impressions: Service Date/Time: Tuesday, August 02, 2016 19:49 - CONCLUSION: Negative for distal femur fracture. Knee arthroplasty is intact. Femoral head fracture cannot be excluded. Correlation is suggested. Juni Swain MD FACR Chest X-Ray 08/02/161920 Signed Impressions: Service Date/Time: Tuesday, August 02, 2016 19:42 - CONCLUSION: Mild congestive failure without pneumothorax. Juni Swain MD FACR Abdomen/Pelvis CT 08/02/16 192 Signed Impressions: Service Date/Time: Tuesday, August 02, 2016 20:48 - CONCLUSION: 1. Compensated cardiomegaly. 2. Extensive degenerative changes in the lumbar spine without rib fracture. 3. Right renal cyst. 4. I do not see an etiology for the patient's right-sided pelvic pain. Juni Swain MD FACR Objective Remarks Bilateral upper extremities: Full range of motion neurovascularly intact Left lower extremity: Full range of motion and neurovascularly intact right lower extremity: Minimal pain with range of motion of hip. No palpable tenderness over the rami or greater trochanter. She has tenderness to palpation over the distal quadriceps muscle and tendon. She is able to actively extend her leg against resistance. She has no tenderness over the medial collateral ligament. She is stable to varus and valgus stresses. Knee range of motion is from 0 to 90. Distally she has intact sensation good capillary refills. Strong dorsiflexion and plantar flexion of foot Assessment & Plan Assessment and Plan Contusion of right knee with right quadriceps muscle strain Weightbearing as tolerated physical therapy to help with ambulation. Walker training Nonoperative treatment from orthopedic standpoint Assess discharge plan for home versus rehabilitation Gorge Avina MD Aug 05, 2016 06:59
[2016-08-05 07:05] LABS: BICARBONATE 24.9 MEQ/L (21.0-32.0)
[2016-08-05] MEDS ORDERED: SOD PHOSPHATE/SOD BIPHOSPHATE (ADULT) ENEMA 133ML RECTAL ONE (07:30)
--- NOTE | 2016-08-05 07:35 | HHI.PR ---
Subjective Remarks Patient OOB on bedside commode. Reports constipation and that she has not had a bowel movement for 4 days. Also reports yesterday that she had wheezing on and off throughout the day. Objective Vital Signs Date Time Temp Pulse Resp B/P Pulse Ox O2 Delivery O2 Flow Rate FiO2 08/05/16 04:00 98.9 120 16 91/59 97 08/05/16 00:00 98.5 125 20 111/54 99 08/04/16 21:08 95 Nasal Cannula 2.00 08/04/16 20:25 110 08/04/16 20:00 Room Air 08/04/16 20:00 98.0 127 18 115/72 97 08/04/16 16:00 97.4 104 18 115/68 97 08/04/16 12:00 97.6 94 18 125/65 93 08/04/16 11:56 85 Venturi Mask 21 08/04/16 09:10 Room Air 08/04/16 08:00 97.6 119 18 101/50 96 08/04/16 07:45 107 I/O 08/04/16 08/04/16 08/04/16 08/05/16 08/05/16 08/05/16 07:00 15:00 23:00 07:00 15:00 23:00 Intake Total 120 ml 822 ml 240 ml 240 ml Output Total 400 ml 400 ml Balance -280 ml 422 ml 240 ml 240 ml Intake Oral 120 ml 600 ml 240 ml 240 ml IV Total 222 ml Output Urine Total 400 ml 400 ml # Voids 2 # Bowel Movements 0 0 0 Result Diagram: 08/04/16 0941 08/04/16 0941 Imaging Last 48 hours Impressions SPECT Scan-Bone Nuclear Medicine 08/04/16 0000 Signed Impressions: Service Date/Time: Thursday, August 04, 2016 08:34 - CONCLUSION: 1. There are no findings to indicate metastatic disease. There are degenerative changes throughout the spine. 2. No significant abnormal activity is associated with the right femoral head finding on recent MRI. Based on the appearance and the degenerative changes at the right hip joint the finding is felt to most likely be degenerative in etiology. Rian Terry MD Medications and IVs Current Medications Medications (Trade) Dose Ordered Sig/Jaycee Route Start Time Stop Time Status Last Admin (NS Flush) 2 ml UNSCH PRN IV FLUSH 08/02/16 22:30 (NS Flush) 2 ml BID IV FLUSH 08/03/16 09:00 08/04/16 09:34 (Narcan Inj) 0.4 mg UNSCH PRN IV 08/02/16 22:30 ([place] 10-325 Mg) 1 tab Q4H PRN PO 08/02/16 22:45 08/04/16 11:57 (Natty-Colace) 2 tab BID PO 08/03/16 09:00 08/04/16 21:00 (Dulcolax Supp) 10 mg DAILY PRN RECTAL 08/03/16 07:45 08/04/16 17:56 (D50w (Vial) Inj) 25 ml UNSCH PRN IV PUSH 08/03/16 07:45 (Glucagon Inj) 1 mg UNSCH PRN OTHER 08/03/16 07:45 (Eliquis) 2.5 mg BID PO 08/03/16 09:00 08/04/16 21:00 (Ecotrin Ec) 81 mg DAILY PO 08/03/16 09:00 08/04/16 09:33 (Tessalon) 200 mg TID PRN PO 08/03/16 07:45 (Mucinex Er) 600 mg BID PO 08/03/16 09:00 08/04/16 21:00 (Lopressor) 12.5 mg BID PO 08/03/16 21:00 08/04/16 21:00 Miscellaneous 1 ea 1 ea UNSCH PRN OTHER 08/03/16 12:15 (NS 1000 ml Inj) 1,000 ml @ 42 mls/hr [id number] IV 08/03/16 14:00 08/04/16 14:54 (Pepcid) 10 mg BID PO 08/03/16 21:00 08/04/16 21:00 (Milk Of Magnesia Liq) 30 ml Q24H PRN PO 08/04/16 23:30 08/05/16 06:18 (Lotrisone Cream) APPLY TO AFFECTED AREA BID TOPICAL 08/05/16 09:00 (Fleets Enema (Adult)) 133 ml ONCE ONCE RECTAL 08/05/16 07:30 08/05/16 07:31 UNV (Tylenol) 500 mg Q6H PO 08/05/16 12:00 UNV Assessment and Plan Problem List: (1) Inability to ambulate due to hip Status: Acute Plan: Patient s/p fall in bathroom. Ortho consulted. Xray and CT with no acute fracture. Pain medication PRN. PT initiated. Bone scan ordered of right hip for concerns about metastatic disease. (2) Acute on chronic renal failure Status: Acute Plan: Worsening renal indices. GFR 17 yesterday pending today. Patient is usually on lasix which is on hold. Nephrology consulted for recommendations. Gently IV hydration initiated. (3) Hyperkalemia Status: Acute Plan: Kayexalate 30 gram X 1 dose given for K of 6.1 yesterday. Recheck in today pending (4) Diabetes Status: Chronic Plan: BS AC and HS. BS 73-109 will discontinue glipizide. SS as needed. (5) Congestive heart failure Status: Chronic Plan: BNP elevated however per cardiology note could be chronic. Occasional cough. No SOB noted. (6) Anemia Status: Acute Plan: HGB 11.9 will monitor. (7) Atrial fibrillation with RVR Status: Acute Plan: On low dose metoprolol and digoxin given per cardiology. Digoxin level pending. Assessment and Plan Bone scan ordered and labs in AM Glipizide discontinued Jazmine Arce Aug 05, 2016 07:35
--- NOTE | 2016-08-05 07:49 | PD.CARD.PN ---
Subjective Subjective Remarks no cv complaints (Fede Gonzalez) Objective Vital Signs / I&O Vital Signs Date Time Temp Pulse Resp B/P Pulse Ox O2 Delivery O2 Flow Rate FiO2 08/05/16 04:00 98.9 120 16 91/59 97 08/05/16 00:00 98.5 125 20 111/54 99 08/04/16 21:08 95 Nasal Cannula 2.00 08/04/16 20:25 110 08/04/16 20:00 Room Air 08/04/16 20:00 98.0 127 18 115/72 97 08/04/16 16:00 97.4 104 18 115/68 97 08/04/16 12:00 97.6 94 18 125/65 93 08/04/16 11:56 85 Venturi Mask 21 08/04/16 09:10 Room Air 08/04/16 08:00 97.6 119 18 101/50 96 I/O 08/04/16 08/04/16 08/04/16 08/05/16 08/05/16 08/05/16 07:00 15:00 23:00 07:00 15:00 23:00 Intake Total 120 ml 822 ml 240 ml 240 ml Output Total 400 ml 400 ml Balance -280 ml 422 ml 240 ml 240 ml Intake Oral 120 ml 600 ml 240 ml 240 ml IV Total 222 ml Output Urine Total 400 ml 400 ml # Voids 2 # Bowel Movements 0 0 0 Physical Exam GENERAL: Well-nourished, well-developed patient in no apparent distress. NECK: No JVD. No carotid bruit. CARDIOVASCULAR: IR IR tachy S1/S2 no murmur, rub, or gallop. RESPIRATORY: No accessory muscle use. Clear to auscultation. Breath sounds equal bilaterally. GASTROINTESTINAL: Abdomen soft, non-tender, nondistended. MUSCULOSKELETAL: Extremities without clubbing, cyanosis, or edema. Laboratory Laboratory Tests Test 08/04/16 08/04/16 09:41 13:00 White Blood Count 6.5 TH/MM3 Red Blood Count 3.99 MIL/MM3 Hemoglobin 11.9 GM/DL Hematocrit 35.3 % Mean Corpuscular Volume 88.4 FL Mean Corpuscular Hemoglobin 29.8 PG Mean Corpuscular Hemoglobin 33.7 % Concent Red Cell Distribution Width 15.3 % Platelet Count 168 TH/MM3 Mean Platelet Volume 8.3 FL Neutrophils (%) (Auto) 71.9 % Lymphocytes (%) (Auto) 16.0 % Monocytes (%) (Auto) 8.2 % Eosinophils (%) (Auto) 3.5 % Basophils (%) (Auto) 0.4 % Neutrophils # (Auto) 4.6 TH/MM3 Lymphocytes # (Auto) 1.0 TH/MM3 Monocytes # (Auto) 0.5 TH/MM3 Eosinophils # (Auto) 0.2 TH/MM3 Basophils # (Auto) 0.0 TH/MM3 CBC Comment DIFF FINAL Differential Comment Sodium Level 139 MEQ/L Potassium Level 5.3 MEQ/L Chloride Level 107 MEQ/L Carbon Dioxide Level 23.3 MEQ/L Anion Gap 9 MEQ/L Blood Urea Nitrogen 78 MG/DL Creatinine 2.40 MG/DL Estimat Glomerular Filtration 19 ML/MIN Rate Random Glucose 61 MG/DL Calcium Level 8.4 MG/DL Phosphorus Level 5.5 MG/DL Magnesium Level 2.4 MG/DL Digoxin Level 0.4 NG/ML Urine Eosinophils NONE SEEN /HPF (Fede Gonzalez) Assessment and Plan Problem List: (1) Atrial fibrillation with RVR (2) CHF exacerbation Assessment and Plan a-fib RVR - hypotension. Will start daily digoxin 125 mcg and check dig level CHF - well compensated, no diuretics with worsening renal function (Fede Gonzalez) Assessment and Plan still afib RVR digoxin 0.125 mg daily. follow daily digoxin levels. Need to be very careful with CrCL for dig toxicity. due to SBP, won't tolerate titration of BB or CCB. on anticoagulation. I'm not sure if she is an ablation candidate. I'll ask EP for their evaluation. (Maldonado Figueredo MD) Problem Qualifiers (1) CHF exacerbation: Qualified Code: I50.9 - Acute on chronic congestive heart failure, unspecified congestive heart failure type Fede Gonzalez Aug 05, 2016 07:49 Maldonado Figueredo MD Aug 05, 2016 11:27
[2016-08-05] MEDS: DIGOXIN 0.125 MG TAB PO SCH ×2 (09:00→09:40)
--- NOTE | 2016-08-05 09:23 | RADRPT ---
EXAM DATE/TIME: 08/05/2016 09:01 [facility] COMPARISON: No previous studies available for comparison. INDICATIONS : Cardiac disease MEDICAL HISTORY : Chronic obstructive pulmonary disease. Congestive heart failure. Hypertension. Asthma, Breast can cer. SURGICAL HISTORY : Cholecystectomy. ENCOUNTER: Subsequent ACUITY: 1 week PAIN SCORE: 3/10 LOCATION: Bilateral chest FINDINGS: Two view chest demonstrates there is some mild pulmonary hilar vascular congestion. The aorta is michael te prominent and tortuous. The heart is enlarged. No focal infiltrates identified. There is no sig nificant pleural effusion. Mild kyphosis is an osteopenic thoracic spine. CONCLUSION: Pulmonary vascular congestion with cardiomegaly suggesting heart failure. Aorta is quite tortuous. No interval change since June. Maldonado Salazar MD on August 05, 2016 at 9:18 Board Certified Radiologist. This report was verified electronically.
[2016-08-05] MEDS: FAMOTIDINE 20 MG TAB PO SCH ×2 (09:40→21:19)
[2016-08-05] MEDS: APIXABAN 2.5 MG TABLET PO SCH ×2 (09:40→21:19)
[2016-08-05] MEDS: DOCUSATE SODIUM 50 MG/SENNA 8.6 MG TAB PO SCH ×2 (09:40→21:18)
[2016-08-05] MEDS: guaiFENesin E.R. 600 MG TAB PO SCH ×2 (09:40→21:19)
[2016-08-05] MEDS: METOPROLOL TARTRATE 25 MG TAB PO SCH (09:40)
[2016-08-05] MEDS: ASPIRIN EC 81 MG TABEC PO SCH (09:40)
[2016-08-05] MEDS: BETAMETHASONE/CLOTRIMAZOLE CREAM 15 GM TOPICAL SCH ×2 (09:41→21:21)
[2016-08-05] MEDS: SODIUM CHLORIDE 0.9% FLUSH 10 ML FLUSH IV FLUSH SCH ×2 (09:41→21:15)
[2016-08-05] MEDS ORDERED: DIGOXIN 0.5 MG/2 ML VIAL IV PUSH ONE (11:30)
[2016-08-05] MEDS: ACETAMINOPHEN 500 MG CPLT PO SCH ×3 (11:58→23:40)
[2016-08-05] MEDS: SODIUM CHLOR 0.9% 1000 ML INJ 1,000 ML IV SCH (13:57)
--- NOTE | 2016-08-05 18:45 | HHI.NPPN ---
Subjective General Problems: Anemia, Edema, Heart Disease Renal Failure: Chronic, Acute, Stage IV History of Present Illness 89 year old female with past medical history of chronic kidney disease, history of atrial fibrillation, ischemic heart disease, congestive heart failure, deep venous thrombosis, hypertension, chronic obstructive pulmonary disease, history of renal stone, diabetes mellitus who came to the hospital because of history of fall. I was called to see the patient because of elevated BUN and creatinine. The patient has history of chronic kidney disease and she was seen by the identification technician [place] and she was admitted here last month. Her creatinine was 1.7-1.8. This is probably her baseline. Additional Remarks Patient is alert, not eating well, clinically same. Review of Systems General Constitutional: Fatigue Cardiovascular Cardiac: NESS Gastrointestinal Gastrointestinal: Nausea & Vomiting Objective Data Data 08/04/16 08/05/16 19:00 07:00 Intake Total 822 ml 480 ml Output Total 400 ml Balance 422 ml 480 ml Intake Oral 600 ml 480 ml IV Total 222 ml Output Urine Total 400 ml # Voids 2 # Bowel Movements 0 0 Vital Signs Date Time Temp Pulse Resp B/P Pulse Ox O2 Delivery O2 Flow Rate FiO2 08/05/16 16:00 97.9 120 20 118/57 95 08/05/16 12:00 97.6 108 20 129/77 98 08/05/16 08:35 Room Air 08/05/16 08:32 124 08/05/16 08:00 97.8 137 20 100/52 95 08/05/16 07:48 95 21 08/05/16 04:00 98.9 120 16 91/59 97 08/05/16 00:00 98.5 125 20 111/54 99 08/04/16 21:08 95 Nasal Cannula 2.00 08/04/16 20:25 110 08/04/16 20:00 Room Air 08/04/16 20:00 98.0 127 18 115/72 97 -: 08/05/16 0550 08/05/16 0550 Physical Exam General Appearance: No Acute Distress, Comfortable Eyes Eye Exam: Pupils Equal Throat Throat Exam: Oral Mucosa [place] & Moist Pulmonary Resp Exam: Breath Sounds Equal, No Distress, Rhonchi, Decreased Bases, Diminished Breath Sounds Cardiology CV Exam: Regular, Normal Sinus Rhythm Gastrointestinal/Abdomen GI Exam: Soft, Non-Tender, Bowel Sounds Present Extremeties Extremities Exam: Trace Edema Neurologic Neuro Exam: Alert, Awake, Oriented Psychiatric Psych Exam: Appropriate Responses Assessment/Plan Assessment Summary: SRINIVAS/Acute Renal Failure, Dehydration, CHF, CKD Stage IV Electrolyte Assessment: Hyperkalemia Problem List: (1) Hypertension (2) Fall (3) Congestive heart failure (4) Anemia (5) Diabetes (6) Atrial fibrillation with RVR (7) Hyperkalemia (8) Acute on chronic renal failure Plan Patient has adequate urine out put. Creatinine improving. K is normalized. Urine Eosinophils negative. Continue gentle Hydration. Not on any diuretics, and K is normal. Problem Qualifiers (1) Fall: Qualified Code: W19.XXXA - Fall, initial encounter Daniela Young MD Aug 05, 2016 18:45 Daniela Young MD Aug 05, 2016 18:45
[2016-08-05] MEDS ORDERED: RESP: ALBUTEROL 2.5 MG/IPRATROPIUM 0.5 MG NEB (PRN) INH (19:45)
--- NOTE | 2016-08-05 19:54 | MB ---
cc: GREGORY PURDY M.D. DATE OF CONSULTATION: 08/05/2016. HISTORY OF PRESENT ILLNESS: Ms. De Leon is an 89-year-old female with history of atrial fibrillation on anticoagulation admitted due to fall. Right thigh pain was diagnosed. Apparently medical management by orthopaedic surgeon. During hospitalization, heart rate increased to 130 to 140 and it was unable to be controlled with medication. I was called by Dr. Figueredo for further evaluation and management. The chart was reviewed. The patient was evaluated. ALLERGIES: 1. PENICILLIN. 2. PHENOBARBITAL. 3. SULFA. SOCIAL HISTORY: Negative for smoking and drinking. FAMILY HISTORY: Noncontributory to her current medical condition. MEDICATIONS: 1. She is on metoprolol 12.5 milligrams twice a day. 2. She is on digoxin 0.125 milligrams a day. 3. She is on Eliquis 2.5 milligrams twice a day. 4. Aspirin. 5. Famotidine. 6. Mucinex ER. REVIEW OF SYSTEMS: She refers some palpitations, shortness of breath but no chest pain or discomfort. PHYSICAL EXAMINATION: GENERAL: Alert, fully oriented. VITAL SIGNS: Her blood pressure is 129/77. Pulse on the monitor is 128 to 130. Respiratory rate 20. LUNGS: Minimal wheezing. CARDIOVASCULAR: S1-S2. Irregular. ABDOMEN: Abdomen obese, no mass. No bruits. EXTREMITIES: With no edema. EKGS: Electrocardiogram shows atrial fibrillation with fast ventricular response and diffuse S-T changes. LABS: Hemoglobin is 10.6, white blood cells 6.1. Potassium is 5.0. Sodium 140, creatinine 2.12. INR is 1.0. ASSESSMENT AND RECOMMENDATIONS: Mrs. De Leon has received IV digoxin. Her creatinine is over 2.2. should be discontinued. I did talk over the phone with her daughter. I discussed the case with her granddaughter at bedside. Her daughter was very anxious. She mentioned the patient never received digoxin IV but in the log, the patient received 0.25 of Digoxin IV at 11:30 this morning. She is just NPO. Because of the renal failure, I am going to stop the digoxin. She is already on beta jose, metoprolol. The systolic blood pressure is 129 and I am aware that sometimes the systolic is around 98. I am going to discontinue the metoprolol and discontinue the digoxin. I am going to initiate amiodarone at 400 milligrams twice a day for five days and 200 milligrams a day. 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 They have an appointment for her on September 13. They want to stabilize the patient and transfer her to [place]. My recommendation is medical management. I will be out this weekend. If necessary, one of my partners will see Mr. De Leon during the weekend. MD CHERYL Hutton/JAYA /5:08 PM /7:42 PM
[2016-08-05] MEDS: AMIODARONE 200 MG TAB PO SCH (21:19)
--- NOTE | 2016-08-05 23:22 | MB ---
cc: HENRY ELLIS DATE OF CONSULTATION 08/05/16 REASON FOR CONSULTATION Shortness breath and wheezing. HISTORY OF PRESENT ILLNESS Ms. 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 She is living with her daughter over here. She has history of atrial fibrillation which started about a month or so, history of coronary artery disease, congestive heart failure, DVT and COPD. The patient came to the hospital with worsening of her shortness of breath. She also had a fall but no fracture was sustained. She fell in the bathroom, no loss of consciousness. She does not have any palpitations, but she did notice some wheezing. She was using albuterol inhaler at home. Does not have any chest pain. No palpitation. PAST MEDICAL HISTORY 1. History of COPD, 2. History of C diff colitis 3. Kidney stones 4. Diabetes mellitus, 5. History of DVT 6. Hypertension, 7. Congestive heart failure. 8. Atrial fibrillation 9. History of parathyroidectomy 10. Knee surgery. MEDICATIONS Currently taking. 1. Amiodarone 200 mg a day 2. Acetaminophen 500 mg a day. 3. Lotrisone cream. 4. Famotidine 10 mg a day. 5. Insulin 6. Eliquis 2.5 mg a day. 7. Aspirin 81 mg a day. 8. Albuterol/Atrovent nebulizer treatment ALLERGIES PENICILLIN PHENOBARBITAL SULFA SOCIAL HISTORY She is , lives alone in [place]. Has no history of smoking but has secondhand smoke exposure. FAMILY HISTORY She has three children and has many grandchildren. REVIEW OF SYSTEMS The patient is able to ambulate without much difficulty. Has history of breast lump removed. Did not require any chemotherapy or radiation. No seizure or stroke or epilepsy. PHYSICAL EXAMINATION GENERAL: Obese female in no acute distress. VITAL SIGNS: Blood pressure 118/57, heart rate 120, respirations 20, temperature 97.9 HEENT: Pupils are equal and reactive to light. Oral mucosa, nasal mucosa normal. NECK: Supple. JVD not raised. CHEST: She has end expiratory rhonchi. CARDIOVASCULAR: S1, S2 irregular. ABDOMEN: Obese, nontender. Bowel sounds are present EXTREMITIES: No edema. IMPRESSION 1. Mild bronchospasm 2. Underlying COPD. 3. Atrial fibrillation with rapid ventricular rate 4. Congestive heart failure 5. Diabetes mellitus 6. History of fall. PLAN I discussed the patient and her daughter. I will change her nebulizer treatment to only as needed to minimize tachycardia. I will start on Flovent 220 mcg on puff twice a day and rinse her mouth. I will check her pulmonary function study. The patient is being evaluated by Dr. Jacobson. Further treatment will depend on the course in the hospital. Thank you, Dr. Haider, for this consultation. MD ASH Burns/ /7:46 PM /11:00 PM DOLORES
[2016-08-05] MEDS: FLUTICASONE PROPIONATE 220 MCG/ACT 12 GM INHALER INH SCH (23:40)
[2016-08-06] VITALS (8 sets, daily range): BP systolic 115–132; BP diastolic 56–78; PULSE 89–130; RESP 14–22; TEMP 96.3–97.8; O2SAT 95–97
[2016-08-06] MEDS: ACETAMINOPHEN 500 MG CPLT PO SCH ×3 (06:01→18:24)
[2016-08-06] MEDS: INSULIN NovoLIN REGULAR SUPPLEMENTAL SCALE SQ SCH ×4 (06:02→21:00)
[2016-08-06 07:53] LABS: AUTOMATED NEUTROPHIL # 4.1 TH/MM3 (1.8-7.7); BASOPHIL % 0.6 % (0.0-2.0); EOSINOPHIL # 0.3 TH/MM3 (0-0.4); EOSINOPHIL % 5.7 % (0.0-4.0); HEMATOCRIT 33.3 % (35.0-46.0); HEMO FLAGS DIFF FINAL; LYMPH % 14.7 % (9.0-44.0); LYMPHOCYTE # 0.9 TH/MM3 (1.0-4.8); MEAN CORPUSCULAR HEMOGLOBIN 27.9 PG (27.0-34.0); MEAN CORPUSCULAR HGB CONC 31.7 % (32.0-36.0); MONO % 8.4 % (0.0-8.0); NEUT % 70.6 % (16.0-70.0); PLATELET COUNT 131 TH/MM3 (150-450); RED BLOOD COUNT 3.78 MIL/MM3 (4.00-5.30); RED CELL DISTRIBUTION WIDTH 15.3 % (11.6-17.2); WHITE BLOOD COUNT 5.9 TH/MM3 (4.0-11.0)
[2016-08-06 08:41] LABS: BICARBONATE 24.3 MEQ/L (21.0-32.0); DIGOXIN 1.1 NG/ML (0.8-2.0); POTASSIUM 5.1 MEQ/L (3.5-5.1)
[2016-08-06] MEDS: BETAMETHASONE/CLOTRIMAZOLE CREAM 15 GM TOPICAL SCH ×2 (09:00→21:58)
[2016-08-06] MEDS: guaiFENesin E.R. 600 MG TAB PO SCH ×2 (09:24→21:58)
[2016-08-06] MEDS: DOCUSATE SODIUM 50 MG/SENNA 8.6 MG TAB PO SCH ×2 (09:24→21:57)
[2016-08-06] MEDS: FAMOTIDINE 20 MG TAB PO SCH ×2 (09:24→21:58)
[2016-08-06] MEDS: ASPIRIN EC 81 MG TABEC PO SCH (09:24)
[2016-08-06] MEDS: APIXABAN 2.5 MG TABLET PO SCH ×2 (09:24→21:57)
[2016-08-06] MEDS: AMIODARONE 200 MG TAB PO SCH ×2 (09:24→21:57)
[2016-08-06] MEDS: SODIUM CHLORIDE 0.9% FLUSH 10 ML FLUSH IV FLUSH SCH ×2 (09:25→21:00)
[2016-08-06] MEDS: FLUTICASONE PROPIONATE 220 MCG/ACT 12 GM INHALER INH SCH ×2 (09:25→21:58)
--- NOTE | 2016-08-06 10:47 | HHI.PR ---
Subjective Remarks Patient denies any CP or SOB. Discussed discharge planning and facility options. Objective Vital Signs Date Time Temp Pulse Resp B/P Pulse Ox O2 Delivery O2 Flow Rate FiO2 08/06/16 08:00 97.3 97 20 115/62 97 08/06/16 04:00 97.8 130 14 128/58 96 08/06/16 00:00 97.2 120 16 118/69 97 08/05/16 20:00 97.6 107 14 94/77 98 08/05/16 20:00 Room Air 08/05/16 19:55 122 08/05/16 16:00 97.9 120 20 118/57 95 08/05/16 12:00 97.6 108 20 129/77 98 I/O 08/05/16 08/05/16 08/05/16 08/06/16 08/06/16 08/06/16 07:00 15:00 23:00 07:00 15:00 23:00 Intake Total 240 ml 1411 ml 336 ml 336 ml Balance 240 ml 1411 ml 336 ml 336 ml Intake Oral 240 ml 480 ml IV Total 931 ml 336 ml 336 ml # Voids 3 2 0 # Bowel Movements 2 Result Diagram: 08/06/16 0706 08/06/16 0706 Imaging Last 48 hours Impressions Chest X-Ray 08/05/16 0844 Signed Impressions: Service Date/Time: July 09:01 - CONCLUSION: Pulmonary vascular congestion with cardiomegaly suggesting heart failure. Aorta is quite tortuous. No interval change since June. Maldonado Salazar MD Objective Remarks GENERAL: Alert and cooperative SKIN: Warm and dry. HEAD: Normocephalic. EYES: No scleral icterus. No injection or drainage. NECK: Supple, trachea midline. No JVD or lymphadenopathy. CARDIOVASCULAR: Regular rate and rhythm without murmurs, gallops, or rubs. RESPIRATORY: Breath sounds equal bilaterally. No accessory muscle use. GASTROINTESTINAL: Abdomen soft, non-tender, nondistended. MUSCULOSKELETAL: No cyanosis, or edema. BACK: Nontender without obvious deformity. No CVA tenderness. Medications and IVs Current Medications Medications (Trade) Dose Ordered Sig/Jaycee Route Start Time Stop Time Status Last Admin (NS Flush) 2 ml UNSCH PRN IV FLUSH 08/02/16 22:30 (NS Flush) 2 ml BID IV FLUSH 08/03/16 09:00 08/06/16 09:25 (Narcan Inj) 0.4 mg UNSCH PRN IV 08/02/16 22:30 ([place] 10-325 Mg) 1 tab Q4H PRN PO 08/02/16 22:45 08/04/16 11:57 (Natty-Colace) 2 tab BID PO 08/03/16 09:00 08/06/16 09:24 (Dulcolax Supp) 10 mg DAILY PRN RECTAL 08/03/16 07:45 08/04/16 17:56 (D50w (Vial) Inj) 25 ml UNSCH PRN IV PUSH 08/03/16 07:45 (Glucagon Inj) 1 mg UNSCH PRN OTHER 08/03/16 07:45 (Eliquis) 2.5 mg BID PO 08/03/16 09:00 08/06/16 09:24 (Ecotrin Ec) 81 mg DAILY PO 08/03/16 09:00 08/06/16 09:24 (Tessalon) 200 mg TID PRN PO 08/03/16 07:45 (Mucinex Er) 600 mg BID PO 08/03/16 09:00 08/06/16 09:24 Miscellaneous 1 ea 1 ea UNSCH PRN OTHER 08/03/16 12:15 (NS 1000 ml Inj) 1,000 ml @ 42 mls/hr [id number] IV 08/03/16 14:00 08/05/16 13:57 (Pepcid) 10 mg BID PO 08/03/16 21:00 08/06/16 09:24 (Milk Of Magnesia Liq) 30 ml Q24H PRN PO 08/04/16 23:30 08/05/16 06:18 (Lotrisone Cream) APPLY TO AFFECTED AREA BID TOPICAL 08/05/16 09:00 08/06/16 09:00 (Tylenol) 500 mg Q6H PO 08/05/16 12:00 08/06/16 06:01 (Cordarone) 400 mg BID PO 08/05/16 21:00 08/10/16 09:01 08/06/16 09:24 (Cordarone) 200 mg DAILY PO 08/11/16 09:00 (Flovent Hfa 220 Mcg Inh) 1 puff BID INH 08/05/16 21:00 08/06/16 09:25 Assessment and Plan Problem List: (1) Inability to ambulate due to hip Status: Acute Plan: Patient s/p fall in bathroom. Ortho consulted. Xray and CT with no acute fracture. Pain medication PRN. PT following . (2) Acute on chronic renal failure Status: Acute Plan: Worsening renal indices. GFR improving. Patient is usually on lasix which is on hold. Nephrology consulted for recommendations. Gently IV hydration initiated. (3) Hyperkalemia Status: Acute Plan: Resolved potassium 5.1 (4) Diabetes Status: Chronic Plan: BS AC and HS. BS with improved with no hypoglycemia episodes. Will add Januvia. (5) Congestive heart failure Status: Chronic Plan: BNP elevated however per cardiology note could be chronic. Occasional cough. No SOB noted. (6) Anemia Status: Acute Plan: HGB stable at 10.6 will monitor. (7) Atrial fibrillation with RVR Status: Acute Plan: Evaluated by Dr. Murphy. Digoxin and metoprolol discontinued. Amiodarone ordered high dose for 5 days then to 200 mg daily. Breathing treatments changed. . Assessment and Plan Assessment and plan discussed with Dr. Haider. LABS in AM Plan for discharge tomorrow Januvia added. Discharge Planning Discharge to TCU tomorrow Jazmine Arce Aug 06, 2016 10:47
--- NOTE | 2016-08-06 11:56 | HHI.NPPN ---
Subjective General Problems: Anemia, Edema, Heart Disease Renal Failure: Chronic, Acute, Stage IV History of Present Illness 89 year old female with past medical history of chronic kidney disease, history of atrial fibrillation, ischemic heart disease, congestive heart failure, deep venous thrombosis, hypertension, chronic obstructive pulmonary disease, history of renal stone, diabetes mellitus who came to the hospital because of history of fall. I was called to see the patient because of elevated BUN and creatinine. The patient has history of chronic kidney disease and she was seen by the manager trade [facility] and she was admitted here last month. Her creatinine was 1.7-1.8. This is probably her baseline. Additional Remarks Patient is alert, not eating well, no SOB, no nausea. Review of Systems General Constitutional: Fatigue Cardiovascular Cardiac: NESS Gastrointestinal Gastrointestinal: Nausea & Vomiting Objective Data Data 08/05/16 08/06/16 19:00 07:00 Intake Total 1411 ml 672 ml Balance 1411 ml 672 ml Intake Oral 480 ml IV Total 931 ml 672 ml # Voids 3 2 # Bowel Movements 2 Vital Signs Date Time Temp Pulse Resp B/P Pulse Ox O2 Delivery O2 Flow Rate FiO2 08/06/16 08:00 97.3 97 20 115/62 97 08/06/16 04:00 97.8 130 14 128/58 96 08/06/16 00:00 97.2 120 16 118/69 97 08/05/16 20:00 97.6 107 14 94/77 98 08/05/16 20:00 Room Air 08/05/16 19:55 122 08/05/16 16:00 97.9 120 20 118/57 95 08/05/16 12:00 97.6 108 20 129/77 98 -: 08/06/16 0706 08/06/16 0706 Physical Exam General Appearance: No Acute Distress, Comfortable Eyes Eye Exam: Pupils Equal Throat Throat Exam: Oral Mucosa [place] & Moist Pulmonary Resp Exam: Breath Sounds Equal, No Distress, Rhonchi, Decreased Bases, Diminished Breath Sounds Cardiology CV Exam: Regular, Normal Sinus Rhythm Gastrointestinal/Abdomen GI Exam: Soft, Non-Tender, Bowel Sounds Present Extremeties Extremities Exam: Trace Edema Neurologic Neuro Exam: Alert, Awake, Oriented Psychiatric Psych Exam: Appropriate Responses Assessment/Plan Assessment Summary: SRINIVAS/Acute Renal Failure, Dehydration, CHF, CKD Stage IV Electrolyte Assessment: Hyperkalemia Problem List: (1) Hypertension (2) Fall (3) Congestive heart failure (4) Anemia (5) Diabetes (6) Atrial fibrillation with RVR (7) Hyperkalemia (8) Acute on chronic renal failure Plan Patient has adequate urine out put. Creatinine is slightly better. K is normalized. Urine Eosinophils negative. Continue gentle Hydration. Diuretics on hold, follow urine out put and Lasix if needed. Avoid Aldactone due to Hyperkalemia. Problem Qualifiers (1) Fall: Qualified Code: W19.XXXA - Fall, initial encounter Daniela Young MD Aug 06, 2016 11:56
--- NOTE | 2016-08-06 17:51 | HHI.PR ---
Subjective Remarks 89 YOWF [place] Has DM,AF,CHF,CKD Wheezing betetr Feels need to cough up swelling legs improved Objective Vital Signs Vital Signs Date Time Temp Pulse Resp B/P Pulse Ox O2 Delivery O2 Flow Rate FiO2 08/06/16 16:00 97.1 95 18 132/60 96 08/06/16 13:35 20 08/06/16 12:00 96.3 121 20 126/78 95 08/06/16 08:30 89 08/06/16 08:00 97.3 97 20 115/62 97 08/06/16 08:00 Room Air 08/06/16 04:00 97.8 130 14 128/58 96 08/06/16 00:00 97.2 120 16 118/69 97 08/05/16 20:00 97.6 107 14 94/77 98 08/05/16 20:00 Room Air 08/05/16 19:55 122 I/O 08/05/16 08/05/16 08/05/16 08/06/16 08/06/16 08/06/16 07:00 15:00 23:00 07:00 15:00 23:00 Intake Total 240 ml 1411 ml 336 ml 336 ml 480 ml Balance 240 ml 1411 ml 336 ml 336 ml 480 ml Intake Oral 240 ml 480 ml 480 ml IV Total 931 ml 336 ml 336 ml # Voids 3 2 0 4 # Bowel Movements 2 2 Result Diagram: 08/06/16 0706 08/06/16 0706 Objective Remarks GENERAL: WBWN WF, NAD SKIN: Warm and dry. HEAD: Normocephalic. EYES: No scleral icterus. No injection or drainage. NECK: Supple, trachea midline. No JVD or lymphadenopathy. CARDIOVASCULAR: Regular rate and rhythm without murmurs, gallops, or rubs. RESPIRATORY: Breath sounds equal bilaterally. No accessory muscle use. End exp rhonchi GASTROINTESTINAL: Abdomen soft, non-tender, nondistended. MUSCULOSKELETAL: No cyanosis, or edema. BACK: Nontender without obvious deformity. No CVA tenderness. A/P Assessment and Plan Bronchospasm improving ? COPD CHF AF CKD DM PLAN: Flovent 1 puff bid Check PFT Use Acapella Monitor BS Eliquis 2.5 mg bid DW pt and daughter. Ricardo Faria MD Aug 06, 2016 17:51
[2016-08-07] VITALS: BP 116/68; PULSE 103; RESP 20; TEMP 97.4; O2SAT 96
[2016-08-07] MEDS: ACETAMINOPHEN 500 MG CPLT PO SCH ×3 (00:11→12:42)
[2016-08-07 04:00] VITALS: BP 114/61; PULSE 94; RESP 18; TEMP 97.5; O2SAT 96
[2016-08-07] MEDS: INSULIN NovoLIN REGULAR SUPPLEMENTAL SCALE SQ SCH ×2 (06:42→11:00)
[2016-08-07 08:00] VITALS: BP 145/67; PULSE 116; RESP 18; TEMP 97.5; O2SAT 96
[2016-08-07 08:07] VITALS: PULSE 131
[2016-08-07 08:41] VITALS: O2SAT 97
[2016-08-07] MEDS ORDERED: CETIRIZINE HCL 10 MG TAB PO SCH (09:00)
[2016-08-07] MEDS: BETAMETHASONE/CLOTRIMAZOLE CREAM 15 GM TOPICAL SCH (09:00)
[2016-08-07] MEDS: guaiFENesin E.R. 600 MG TAB PO SCH (09:11)
[2016-08-07] MEDS: DOCUSATE SODIUM 50 MG/SENNA 8.6 MG TAB PO SCH (09:11)
[2016-08-07] MEDS: AMIODARONE 200 MG TAB PO SCH (09:11)
[2016-08-07] MEDS: FAMOTIDINE 20 MG TAB PO SCH (09:11)
[2016-08-07] MEDS: FLUTICASONE PROPIONATE 220 MCG/ACT 12 GM INHALER INH SCH (09:12)
[2016-08-07] MEDS: ASPIRIN EC 81 MG TABEC PO SCH (09:12)
[2016-08-07] MEDS: APIXABAN 2.5 MG TABLET PO SCH (09:12)
[2016-08-07] MEDS: SODIUM CHLORIDE 0.9% FLUSH 10 ML FLUSH IV FLUSH SCH (09:12)
[2016-08-07 09:14] LABS: AUTOMATED NEUTROPHIL # 5.8 TH/MM3 (1.8-7.7); BASOPHIL % 0.1 % (0.0-2.0); EOSINOPHIL # 0.4 TH/MM3 (0-0.4); EOSINOPHIL % 5.2 % (0.0-4.0); HEMATOCRIT 33.8 % (35.0-46.0); HEMO FLAGS DIFF FINAL; LYMPHOCYTE # 0.6 TH/MM3 (1.0-4.8); MEAN CELL VOLUME 87.6 FL (80.0-100.0); MEAN CORPUSCULAR HEMOGLOBIN 28.3 PG (27.0-34.0); MEAN CORPUSCULAR HGB CONC 32.3 % (32.0-36.0); MONO % 7.4 % (0.0-8.0); NEUT % 79.3 % (16.0-70.0); PLATELET COUNT 150 TH/MM3 (150-450); RED BLOOD COUNT 3.86 MIL/MM3 (4.00-5.30); RED CELL DISTRIBUTION WIDTH 14.8 % (11.6-17.2); WHITE BLOOD COUNT 7.3 TH/MM3 (4.0-11.0)
[2016-08-07 09:41] LABS: BICARBONATE 24.4 MEQ/L (21.0-32.0); POTASSIUM 5.3 MEQ/L (3.5-5.1)
--- NOTE | 2016-08-07 11:38 | PD.CARD.PN ---
Subjective Subjective Remarks Pt doing well, still somewhat fast rates on tele. Objective Medications Administered Medications Medications (Trade) Dose Ordered Sig/Jaycee Route PRN Reason Start Time Stop Time Status Last Admin Dose Admin Sodium Chloride (NS Flush) 2 ml BID IV FLUSH 08/03/16 09:00 08/07/16 09:12 Acetaminophen/ Hydrocodone Bitart ([place] 10-325 Mg) 1 tab Q4H PRN PO PAIN GREATER THAN 5 08/02/16 22:45 08/04/16 11:57 Senna/Docusate Sodium (Natty-Colace) 2 tab BID PO 08/03/16 09:00 08/07/16 09:11 Bisacodyl (Dulcolax Supp) 10 mg DAILY PRN RECTAL CONSTIPATION 08/03/16 07:45 08/04/16 17:56 Apixaban (Eliquis) 2.5 mg BID PO 08/03/16 09:00 08/07/16 09:12 Aspirin (Ecotrin Ec) 81 mg DAILY PO 08/03/16 09:00 08/07/16 09:12 Guaifenesin (Mucinex Er) 600 mg BID PO 08/03/16 09:00 08/07/16 09:11 Miscellaneous 1 ea 1 ea UNSCH PRN OTHER SEE LABEL COMMENTS 08/03/16 12:15 08/06/16 22:01 Sodium Chloride (NS 1000 ml Inj) 1,000 ml @ 42 mls/hr [id number] IV 08/03/16 14:00 08/05/16 13:57 Famotidine (Pepcid) 10 mg BID PO 08/03/16 21:00 08/07/16 09:11 Magnesium Hydroxide (Milk Of Magnesia Liq) 30 ml Q24H PRN PO CONSTIPATION 08/04/16 23:30 08/05/16 06:18 Betamethasone/ Clotrimazole (Lotrisone Cream) APPLY TO AFFECTED AREA BID TOPICAL 08/05/16 09:00 08/07/16 09:00 Acetaminophen (Tylenol) 500 mg Q6H PO 08/05/16 12:00 08/07/16 06:41 Amiodarone HCl (Cordarone) 400 mg BID PO 08/05/16 21:00 08/10/16 09:01 08/07/16 09:11 Fluticasone Propionate (Flovent Hfa 220 Mcg Inh) 1 puff BID INH 08/05/16 21:00 08/07/16 09:12 Sitagliptin Phosphate (Januvia) 25 mg DAILY PO 08/06/16 12:00 08/07/16 09:11 Cetirizine HCl (ZyrTEC) 10 mg DAILY PO 08/07/16 09:00 08/07/16 09:12 Vital Signs / I&O Vital Signs Date Time Temp Pulse Resp B/P Pulse Ox O2 Delivery O2 Flow Rate FiO2 08/07/16 08:41 97 Nasal Cannula 21 08/07/16 08:00 97.5 116 18 145/67 96 08/07/16 04:00 97.5 94 18 114/61 96 08/07/16 00:00 97.4 103 20 116/68 96 08/06/16 20:30 Room Air 08/06/16 20:00 97.5 115 22 129/56 97 08/06/16 19:36 105 08/06/16 16:00 97.1 95 18 132/60 96 08/06/16 13:35 20 08/06/16 12:00 96.3 121 20 126/78 95 I/O 08/06/16 08/06/16 08/06/16 08/07/16 08/07/16 08/07/16 07:00 15:00 23:00 07:00 15:00 23:00 Intake Total 336 ml 480 ml 480 ml 240 ml Output Total 275 ml Balance 336 ml 480 ml 480 ml -35 ml Intake Oral 480 ml 480 ml 240 ml IV Total 336 ml Output Urine Total 275 ml # Voids 0 4 2 # Bowel Movements 2 0 0 Physical Exam GENERAL: This is a well-nourished, well-developed patient, in no apparent distress. CARDIOVASCULAR: mildly rapid rate and irregular rhythm without murmurs, gallops , or rubs. RESPIRATORY: Clear to auscultation. Breath sounds equal bilaterally. No wheezes , rales, or rhonchi. GASTROINTESTINAL: Abdomen soft, non-tender, nondistended. Normal, active bowel sounds MUSCULOSKELETAL: Extremities without clubbing, cyanosis, or edema. NEURO: Alert & Oriented x4 to person, place, time, situation. Moves all ext x4 Laboratory Laboratory Tests Test 08/07/16 09:03 White Blood Count 7.3 TH/MM3 Red Blood Count 3.86 MIL/MM3 Hemoglobin 10.9 GM/DL Hematocrit 33.8 % Mean Corpuscular Volume 87.6 FL Mean Corpuscular Hemoglobin 28.3 PG Mean Corpuscular Hemoglobin 32.3 % Concent Red Cell Distribution Width 14.8 % Platelet Count 150 TH/MM3 Mean Platelet Volume 8.0 FL Neutrophils (%) (Auto) 79.3 % Lymphocytes (%) (Auto) 8.0 % Monocytes (%) (Auto) 7.4 % Eosinophils (%) (Auto) 5.2 % Basophils (%) (Auto) 0.1 % Neutrophils # (Auto) 5.8 TH/MM3 Lymphocytes # (Auto) 0.6 TH/MM3 Monocytes # (Auto) 0.5 TH/MM3 Eosinophils # (Auto) 0.4 TH/MM3 Basophils # (Auto) 0.0 TH/MM3 CBC Comment DIFF FINAL Differential Comment Sodium Level 143 MEQ/L Potassium Level 5.3 MEQ/L Chloride Level 114 MEQ/L Carbon Dioxide Level 24.4 MEQ/L Anion Gap 5 MEQ/L Blood Urea Nitrogen 59 MG/DL Creatinine 1.96 MG/DL Estimat Glomerular Filtration 24 ML/MIN Rate Random Glucose 141 MG/DL Calcium Level 9.0 MG/DL Imaging Last Impressions Chest X-Ray 08/05/16 0844 Signed Impressions: Service Date/Time: July 09:01 - CONCLUSION: Pulmonary vascular congestion with cardiomegaly suggesting heart failure. Aorta is quite tortuous. No interval change since June. Maldonado Salazar MD SPECT Scan-Bone Nuclear Medicine 08/04/16 0000 Signed Impressions: Service Date/Time: Thursday, August 04, 2016 08:34 - CONCLUSION: 1. There are no findings to indicate metastatic disease. There are degenerative changes throughout the spine. 2. No significant abnormal activity is associated with the right femoral head finding on recent MRI. Based on the appearance and the degenerative changes at the right hip joint the finding is felt to most likely be degenerative in etiology. Rian Terry MD Hip MRI 08/03/16 0000 Signed Impressions: Service Date/Time: Wednesday, August 03, 2016 08:33 - CONCLUSION: Nonspecific focus of altered signal intensity in lateral aspect of the right femoral head. The appearance is worrisome for metastatic disease. Correlation with the status of the patient's stated history of breast cancer would be recommended. Correlation with bone scan may also be useful. Rian López MD Hip and Pelvis X-Ray 08/02/161920 Signed Impressions: Service Date/Time: Tuesday, August 02, 2016 19:47 - CONCLUSION: Possible right femoral head fracture. CT scan is suggested. Juni Swain MD FACR Femur X-Ray 08/02/161920 Signed Impressions: Service Date/Time: Tuesday, August 02, 2016 19:49 - CONCLUSION: Negative for distal femur fracture. Knee arthroplasty is intact. Femoral head fracture cannot be excluded. Correlation is suggested. Juni Swain MD FACR Abdomen/Pelvis CT 08/02/161920 Signed Impressions: Service Date/Time: Tuesday, August 02, 2016 20:48 - CONCLUSION: 1. Compensated cardiomegaly. 2. Extensive degenerative changes in the lumbar spine without rib fracture. 3. Right renal cyst. 4. I do not see an etiology for the patient's right-sided pelvic pain. Juni Swain MD FACR Lower Extremity CT 08/02/16 0000 Signed Impressions: Service Date/Time: Tuesday, August 02, 2016 20:48 - CONCLUSION: Negative for fracture. Juni Swain MD FACR Assessment and Plan Problem List: (1) Atrial fibrillation with RVR Assessment and Plan: Will add low dose cardizem 30mg qid; on low dose eliquis (2) CHF exacerbation Assessment and Plan: compensated. Assessment and Plan Hope to be able to d/c to rehab soon Problem Qualifiers (1) CHF exacerbation: Qualified Code: I50.9 - Acute on chronic congestive heart failure, unspecified congestive heart failure type Keenan Corrigan MD Aug 07, 2016 11:38
[2016-08-07] MEDS ORDERED: SITA25 PO (11:56)
[2016-08-07] MEDS ORDERED: AMIO200T PO (11:56)
[2016-08-07] MEDS ORDERED: DILT31TA PO (11:56)
[2016-08-07] MEDS ORDERED: ACET500T3 PO (11:56)
[2016-08-07 12:00] VITALS: BP 157/81; PULSE 116; RESP 18; TEMP 97.5; O2SAT 96
[2016-08-07] MEDS ORDERED: DILTIAZEM HCL 30 MG TAB PO SCH (12:00)
--- NOTE | 2016-08-07 12:00 | HHI.DS ---
Discharge Summary Admission Date Aug 02, 2016 at 22:14 Admitting Diagnosis right leg pain, difficulty ambulating, afib, chf (1) Chronic kidney disease Diagnosis: Secondary (2) Atrial fibrillation with RVR Diagnosis: Secondary (3) Diabetes Diagnosis: Secondary (4) DJD (degenerative joint disease) Diagnosis: Principal CBC/BMP: 08/07/16 0903 08/07/16 0903 Significant Findings Laboratory Tests Test 08/05/16 08/06/16 08/07/16 05:50 07:06 09:03 Red Blood Count 3.72 MIL/MM3 3.78 MIL/MM3 3.86 MIL/MM3 (4.00-5.30) (4.00-5.30) (4.00-5.30) Hemoglobin 10.6 GM/DL 10.6 GM/DL 10.9 GM/DL (11.6-15.3) (11.6-15.3) (11.6-15.3) Hematocrit 32.4 % 33.3 % 33.8 % (35.0-46.0) (35.0-46.0) (35.0-46.0) Platelet Count 147 TH/MM3 131 TH/MM3 (150-450) (150-450) Monocytes (%) (Auto) 9.7 % (0.0-8.0) 8.4 % (0.0-8.0) Eosinophils (%) (Auto) 4.9 % (0.0-4.0) 5.7 % (0.0-4.0) 5.2 % (0.0-4.0) Chloride Level 108 MEQ/L 111 MEQ/L 114 MEQ/L (98-107) (98-107) (98-107) Blood Urea Nitrogen 72 MG/DL (7-18) 68 MG/DL (7-18) 59 MG/DL (7-18) Creatinine 2.12 MG/DL 2.17 MG/DL 1.96 MG/DL (0.50-1.00) (0.50-1.00) (0.50-1.00) Estimat Glomerular Filtration 22 ML/MIN (>89) 21 ML/MIN (>89) 24 ML/MIN (>89) Rate Calcium Level 8.3 MG/DL 8.2 MG/DL (8.5-10.1) (8.5-10.1) Mean Corpuscular Hemoglobin 31.7 % Concent (32.0-36.0) Neutrophils (%) (Auto) 70.6 % 79.3 % (16.0-70.0) (16.0-70.0) Lymphocytes # (Auto) 0.9 TH/MM3 0.6 TH/MM3 (1.0-4.8) (1.0-4.8) Random Glucose 183 MG/DL 141 MG/DL (74-106) (74-106) Lymphocytes (%) (Auto) 8.0 % (9.0-44.0) Potassium Level 5.3 MEQ/L (3.5-5.1) Pt Condition on Discharge: Good Discharge Disposition: Discharge to SNF Discharge Instructions DIET: Follow Instructions for: Heart Healthy Diet Activities you can perform: Weight Bearing as Jesse New Medications: Acetaminophen (Acetaminophen) 500 Mg Tab 500 MG PO Q6H Pain Management Days 28 TAB Amiodarone (Amiodarone) 200 Mg Tab 200 MG PO DAILY tachacardia Days 28 TAB Diltiazem (Cardizem) 30 Mg Tab 30 MG PO Q6HR Blood Pressure Management Days 28 TAB Sitagliptin (Januvia) 25 Mg Tab 25 MG PO DAILY diabetes Days 28 TAB Continued Medications: Apixaban (Eliquis) 2.5 Mg Tab 2.5 MG PO BID #60 TAB Aspirin (Aspirin) 81 Mg Tabdr 81 MG PO DAILY TAB Benazepril (Benazepril) 20 Mg Tab 20 MG PO DAILY Blood Pressure Management #30 Ref 0 TAB Benzonatate (Tessalon Perles) 100 Mg Cap 200 MG PO TID PRN COUGH #90 CAP Furosemide (Lasix) 40 Mg Tab 40 MG PO DAILY #30 Ref 0 TAB Guaifenesin ER 12 HR (Mucinex ER 12 HR) 600 Mg Rush 600 MG PO BID #60 TAB Ipratropium-Albuterol Neb (Duoneb) 0.5-2.5 Mg/3 Ml Neb 1 AMPULE INH Q4HR NEB #90 ML Metoprolol Tartrate (Metoprolol Tartrate) 25 Mg Tab 25 MG PO BID #60 Ref 0 TAB ([Spironolactone]) 25 MG TAB 12.5 MG PO DAILY TAB Additional Information pt to discharge to [facility] will have pt and ot follow Tra Haider DO Aug 07, 2016 12:00
[2016-08-11] MEDS ORDERED: AMIODARONE 200 MG TAB PO SCH (09:00)
== END 2016-08-07 15:43 | DRG 537 ==
LOC: NEPC 18:54 → NEDA 22:14 → N04B 23:29
PROVIDERS: ADMIT Family Medicine; ATTEND Family Medicine
DX: S76.111A Strain of right quadriceps muscle, fascia and tendon, initial encounter (principal); N17.9 Acute kidney failure, unspecified; N18.4 Chronic kidney disease, stage 4 (severe); E11.22 Type 2 diabetes mellitus with diabetic chronic kidney disease; I48.91 Unspecified atrial fibrillation; I50.9 Heart failure, unspecified; I13.0 Hypertensive heart and chronic kidney disease with heart failure and stage 1 through stage 4 chronic kidney disease, or unspecified chronic kidney disease; E87.5 Hyperkalemia; D64.9 Anemia, unspecified; J44.9 Chronic obstructive pulmonary disease, unspecified; E86.0 Dehydration; G25.81 Restless legs syndrome; S80.01XA Contusion of right knee, initial encounter; S83.421A Sprain of lateral collateral ligament of right knee, initial encounter; J98.01 Acute bronchospasm; K59.00 Constipation, unspecified; R26.2 Difficulty in walking, not elsewhere classified; I25.10 Atherosclerotic heart disease of native coronary artery without angina pectoris; M19.90 Unspecified osteoarthritis, unspecified site; J45.909 Unspecified asthma, uncomplicated; W01.0XXA Fall on same level from slipping, tripping and stumbling without subsequent striking against object, initial encounter; Y93.E1 Activity, personal bathing and showering; Y92.002 Bathroom of unspecified non-institutional (private) residence as the place of occurrence of the external cause; Z85.3 Personal history of malignant neoplasm of breast; Z86.718 Personal history of other venous thrombosis and embolism; Z79.01 Long term (current) use of anticoagulants; Z79.84 Long term (current) use of oral hypoglycemic drugs; Z88.0 Allergy status to penicillin; Z88.2 Allergy status to sulfonamides; Z77.22 Contact with and (suspected) exposure to environmental tobacco smoke (acute) (chronic)
CPT/HCPCS: 71010; 71020; 73502; 73552; 73700; 73721; 74176; 76937; 78306; 78320; 78399; 80048; 80053; 80162; 81001; 82948; 83690; 83735; 83880; 84100; 84443; 85025; 85610; 85730; 87205; 93005; 94640; 94664; 94667; 94668; 96361; 96374; 96375; A9503; J1160; J2270; J2405; J7030; J7050

== ENCOUNTER 2016-08-21 20:16 | Observation (INO) | payer MEDICARE, BC ==
[~2016-08-21] VITALS: Ht 167.6 cm; Wt 120.0 kg
[~2016-08-21 20:16] MED LIST changes: +ACET500T3 PO; +AMIO200T PO; +DILT31TA PO; -GLIP5TAB8 PO; -METO-309 PO; +METO25TA3 PO; +SITA25 PO
[2016-08-21 20:18] VITALS: BP 171/102; PULSE 96; RESP 16; TEMP 97.6; O2SAT 98
[2016-08-21] MEDS ORDERED: CARD180C5 PO (20:53)
[2016-08-21] MEDS ORDERED: FLUTI220I INH (20:53)
[2016-08-21] MEDS ORDERED: IRON18TA2 PO (20:54)
[2016-08-21] MEDS ORDERED: MULT-120 PO (20:54)
[2016-08-21] MEDS ORDERED: PYRI100T PO (20:54)
--- NOTE | 2016-08-21 21:43 | PD ---
HPI Chief Complaint: Fall Time Seen by Provider: 21:42 Travel History International Travel<30 days: No Contact w/Intl Traveler<30days: No Traveled to known affect area: No History of Present Illness HPI 89-year-old female presents to the emergency department for evaluation of low back and right knee pain after she fell at approximately 4 PM this afternoon. She states she got a rehabilitation today for right hip pain. She was walking to get her hair done when she stepped up on the curb at the wrong way causing her need to give out. Patient is on anticoagulants for A. fib, but is adamant that she did not hit her head. She denies any neck pain. She denies any chest pain or abdominal pain. No nausea or vomiting. She states she was able to walk after the fall, but then became unable to walk. Patient denies any hip or pelvic pain. PFSH Past Medical History 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) Asthma: Yes (uses ventolin inhaler) Cancer: Yes (encapsulated cancer L breast) Cardiovascular Problems: Yes (CHF) Chemotherapy: No Congestive Heart Failure: Yes COPD: Yes Diabetes: Yes Patient Takes Glucophage: No Endocrine: Yes GERD: Yes Genitourinary: Yes (stress incontinence) Hypertension: Yes Immune Disorder: No Implanted Vascular Access Dvce: Yes Kidney Stones: Yes (hx of lithotripsy) Neurologic: Yes Psychiatric: No Reproductive: No Respiratory: Yes (COPD/ASTHMA / DVT) Immunizations Current: Yes Pneumonia: Yes Radiation Therapy: No Sleep Apnea: No Ulcer: Yes (40 years ago) Tetanus Vaccination: Unknown Influenza Vaccination: Yes Past Surgical History Abdominal Surgery: Yes (open cholecystectomy) Cholecystectomy: Yes Endocrine Surgery: Yes (Parathyroidectomy) Eye Surgery: Yes (Bilateral cataracts 2014) Genitourinary Surgery: Yes (Lithotripsy) Gynecologic Surgery: Yes (DECLAN L breast surgery, hysterectomy) Hysterectomy: Yes Joint Replacement: Yes (Jose Manuel Knee replacements) Tonsillectomy: Yes Other Surgery: Yes (PARATHYROID SURGERY / HEMORRHOIDECTOMY) Social History Alcohol Use: Yes (RARELY) Tobacco Use: No Substance Use: No Allergies-Medications (Allergen,Severity, Reaction): Coded Allergies: Penicillin (Verified Allergy, Unknown, 08/21/16) Sulfa (Verified Allergy, Unknown, 08/21/16) Uncoded Allergies: Phenobarbitol (Allergy, Severe, Hives, 07/01/16) Reported Meds & Prescriptions Reported Meds & Active Scripts Active Januvia (Sitagliptin Phosphate) 25 Mg Tab 25 Mg PO DAILY 28 Days Amiodarone (Amiodarone HCl) 200 Mg Tab 200 Mg PO DAILY 28 Days Acetaminophen 500 Mg Tab 500 Mg PO Q6H 28 Days Tessalon Perles (Benzonatate) 100 Mg Cap 200 Mg PO TID PRN Mucinex ER 12 HR (Guaifenesin) 600 Mg Rush 600 Mg PO BID Benazepril (Benazepril HCl) 20 Mg Tab 20 Mg PO DAILY Eliquis (Apixaban) 2.5 Mg Tab 2.5 Mg PO BID Reported Iron (Ferrous Fumarate) 18 Mg Tab 18 Mg PO BID Multivitamin Women (Multiple Vitamins W/ Minerals) 1 Tab Tab 1 Tab PO DAILY Vitamin B-6 (Pyridoxine HCl) 100 Mg Tab 100 Mg PO DAILY Cardizem CD 24 HR (Diltiazem CD 24 HR) 180 Mg Caper 180 Mg PO DAILY Flovent Hfa 12 GM Inh (Fluticasone Propionate) 220 Mcg/Act Inh 1 Puff INH BID Use daily at the same time. Aspirin 81 Mg Tabdr 81 Mg PO DAILY Lasix (Furosemide) 40 Mg Tab 20 Mg PO BID Review of Systems Except as stated in HPI: all other systems reviewed are Neg Physical Exam Narrative GENERAL: Well-nourished, well-developed patient, afebrile. SKIN: Focused skin assessment warm/dry. No lacerations or abrasions. HEAD: Normocephalic. Atraumatic. EYES: No scleral icterus. No injection or drainage. NECK: Supple, trachea midline. No JVD or lymphadenopathy. CARDIOVASCULAR: Regular rate and rhythm without murmurs, gallops, or rubs. Bilateral radial and pedal pulses 2+. RESPIRATORY: Breath sounds equal bilaterally. No accessory muscle use. Lungs sounds are clear to auscultation. GASTROINTESTINAL: Abdomen soft, non-tender, nondistended. MUSCULOSKELETAL: No cyanosis, or edema. Patient has tenderness over right anterior knee with reduced flexion due to pain. BACK: No without obvious deformity. No CVA tenderness. Patient has tenderness over midline lumbar spine. She has full range of motion of the cervical spine without pain or stiffness. Data Data Last Documented VS Vital Signs Date Time Temp Pulse Resp B/P Pulse Ox O2 Delivery O2 Flow Rate FiO2 08/21/16 20:18 97.6 96 16 171/102 98 Orders Spine, Lumbar - Ltd (Ap & Lat) (08/21/16 ) Knee, Complete (4vws) (08/21/16 ) Acetamin-Hydrocod 325-5 Mg ([place] 5-325 (08/21/16 21:45) Splint Or Brace Apply/Monitor (08/21/16 22:36) Splint Or Brace Apply/Monitor (08/21/16 23:19) Immobilizer Knee 20 Inch (08/21/16 ) Complete Blood Count With Diff (08/22/16 00:18) Basic Metabolic Panel (Bmp) (08/22/16 00:18) Act Partial Throm Time (Ptt) (08/22/16 00:18) Prothrombin Time / Inr (Pt) (08/22/16 00:18) Urinalysis - C+S If Indicated (08/22/16 00:18) Admit Order (Ed Use Only) (08/22/16 ) ^ Saline Lock (08/22/16 00:19) Resp Oxygen Anderson C Titrat 1-4 L (08/22/16 ) Notify Dr: Other (08/22/16 00:19) Sodium Chloride 0.9% Flush (Ns Flush) (08/22/16 09:00) Sodium Chloride 0.9% Flush (Ns Flush) (08/22/16 00:30) Electrocardiogram (08/22/16 ) MDM Medical Decision Making Medical Screen Exam Complete: Yes Emergency Medical Condition: Yes Medical Record Reviewed: Yes Interpretation(s) x-ray lumbar spine - CONCLUSION: Chronic changes. X-ray right knee - CONCLUSION: Intact total knee arthroplasty for technique. Differential Diagnosis Knee contusion versus fracture versus sprain versus chronic back pain versus lumbar strain versus fracture versus muscle spasm Narrative Course 89-year-old elderly female presents to the emergency department for evaluation of low back pain and right knee pain after she tripped and fell at approximately 4 PM. She denies any other complaints at this time. Patient is requesting oral pain medication. Patient is given Lortab 5/325 mg for pain. X- ray of the lumbar spine and x-ray of the right knee are ordered and pending. X-ray of the lumbar spine shows chronic changes. X-ray of the right knee shows an intact total knee arthroplasty for technique. The patient is unsure if she can walk. Richy bandage is applied. Road test will be attempted. Diagnosis Primary Impression: Left knee sprain Qualified Code: S83.92XA - Sprain of left knee, unspecified ligament, initial encounter Referrals: Orthopedist call for appointment Yakelin Pham Aug 21, 2016 21:43 Yakelin Pham Aug 21, 2016 21:43
[2016-08-21] MEDS ORDERED: ACETAMINOPHEN/HYDROcodone 325 MG/5 MG TAB PO ONE (21:45)
--- NOTE | 2016-08-21 22:22 | RADRPT ---
EXAM DATE/TIME: 08/21/2016 21:54 [facility] COMPARISON: No previous studies available for comparison. INDICATIONS : Lower back pain after fall. MEDICAL HISTORY : Chronic obstructive pulmonary disease. Congestive heart failure.Hypertension. Asthma, Breast cancer. SURGICAL HISTORY : Cholecystectomy. ENCOUNTER: Initial ACUITY: 1 day PAIN SCORE: 6/10 LOCATION: l-spine FINDINGS: No appreciable compression deformities, or spondylolysis is seen. Slight degenerative changes are se en within the disc space and facets. Chronic atherosclerotic calcifications are seen without any defi nite aneurysmal dilatations for technique. slight osteopenia is seen with mild degenerative anterolis thesis L4-L5 on a chronic and degenerative bases. CONCLUSION: Chronic changes. Kameron Minor MD on August 21, 2016 at 22:19 Board Certified Radiologist. This report was verified electronically.
--- NOTE | 2016-08-21 22:23 | RADRPT ---
EXAM DATE/TIME: 08/21/2016 21:57 [facility] COMPARISON: No previous studies available for comparison. INDICATIONS : Right knee pain after fall. Patient states her right knee buckled. MEDICAL HISTORY : Chronic obstructive pulmonary disease. Congestive heart failure.Hypertension. Asthma, Breast cancer. SURGICAL HISTORY : Total knee replacement, right. Cholecystectomy. ENCOUNTER: Initial ACUITY: 1 day PAIN SCORE: 10/10 LOCATION: Right knee FINDINGS: Total knee arthroplasty is in place. The femoral, tibial, and patellar components appear intact. Th ere are no signs of loosening or fracture. Moderate joint effusion is seen. CONCLUSION: Intact total knee arthroplasty for technique. Kameron Minor MD on August 21, 2016 at 22:20 Board Certified Radiologist. This report was verified electronically.
[2016-08-21] MEDS ORDERED: HYDR-3533 PO (22:57)
[2016-08-22] VITALS (8 sets, daily range): BP systolic 116–141; BP diastolic 55–76; PULSE 67–81; RESP 14–21; TEMP 97.1–98.4; O2SAT 96–97
[2016-08-22] MEDS ORDERED: SODIUM CHLORIDE 0.9% FLUSH 10 ML FLUSH IVF PRN (00:30)
[2016-08-22] MEDS ORDERED: NALOXONE HCL 0.4 MG/ML AMP IV PRN (01:00)
[2016-08-22] MEDS ORDERED: SODIUM CHLORIDE 0.9% FLUSH 10 ML FLUSH IV FLUSH PRN (01:00)
[2016-08-22] MEDS ORDERED: ACETAMINOPHEN 325 MG TAB PO PRN (01:00)
[2016-08-22] MEDS ORDERED: BENZONATATE 100 MG CAP PO PRN (01:00)
[2016-08-22 01:12] LABS: AUTOMATED NEUTROPHIL # 6.5 TH/MM3 (1.8-7.7); BASOPHIL # 0.1 TH/MM3 (0-0.2); BASOPHIL % 0.6 % (0.0-2.0); EOSINOPHIL # 0.3 TH/MM3 (0-0.4); EOSINOPHIL % 3.5 % (0.0-4.0); HEMATOCRIT 35.9 % (35.0-46.0); HEMO FLAGS DIFF FINAL; MEAN CELL VOLUME 86.1 FL (80.0-100.0); MEAN CORPUSCULAR HEMOGLOBIN 28.1 PG (27.0-34.0); MEAN CORPUSCULAR HGB CONC 32.7 % (32.0-36.0); MONO % 9.1 % (0.0-8.0); NEUT % 74.8 % (16.0-70.0); PLATELET COUNT 272 TH/MM3 (150-450); RED BLOOD COUNT 4.17 MIL/MM3 (4.00-5.30); RED CELL DISTRIBUTION WIDTH 15.5 % (11.6-17.2); WHITE BLOOD COUNT 8.7 TH/MM3 (4.0-11.0)
[2016-08-22 01:18] LABS: APTT (PATIENT) 28.9 SEC (24.3-30.1); PROTHROMBIN TIME - PATIENT 10.7 SEC (9.8-11.6)
[2016-08-22 01:36] LABS: BICARBONATE 29.5 MEQ/L (21.0-32.0); POTASSIUM 4.2 MEQ/L (3.5-5.1)
--- NOTE | 2016-08-22 01:46 | PD ---
Physical Exam Date Seen by Provider: Aug 22, 2016 Time Seen by Provider: 23:35 Narrative accepted in transfer of care from [facility] Data Data Last Documented VS Vital Signs Date Time Temp Pulse Resp B/P Pulse Ox O2 Delivery O2 Flow Rate FiO2 08/21/16 20:18 97.6 96 16 171/102 98 Orders Spine, Lumbar - Ltd (Ap & Lat) (08/21/16 ) Knee, Complete (4vws) (08/21/16 ) Acetamin-Hydrocod 325-5 Mg ([place] 5-325 (08/21/16 21:45) Splint Or Brace Apply/Monitor (08/21/16 22:36) Splint Or Brace Apply/Monitor (08/21/16 23:19) Immobilizer Knee 20 Inch (08/21/16 ) Complete Blood Count With Diff (08/22/16 00:18) Basic Metabolic Panel (Bmp) (08/22/16 00:18) Act Partial Throm Time (Ptt) (08/22/16 00:18) Prothrombin Time / Inr (Pt) (08/22/16 00:18) Urinalysis - C+S If Indicated (08/22/16 00:18) Admit Order (Ed Use Only) (08/22/16 ) ^ Saline Lock (08/22/16 00:19) Resp Oxygen Anderson C Titrat 1-4 L (08/22/16 ) Notify Dr: Other (08/22/16 00:19) Sodium Chloride 0.9% Flush (Ns Flush) (08/22/16 09:00) Sodium Chloride 0.9% Flush (Ns Flush) (08/22/16 00:30) Electrocardiogram (08/22/16 ) [facility] Medical Record Reviewed: Yes Supervised Visit with JERE: Yes Interpretation(s) EKG: Atrial fibrillation rate 84 poor septal R wave progression no acute ST elevation or injury pattern change noted Differential Diagnosis Generalized weakness, fall, UTI, electrolyte disturbance, failure to thrive Narrative Course Accepted in transfer of care from nurse practitioner for follow-up of patient's ability to ambulate; patient unable to ambulate independently with the assistance of staff patient is able to walk a short distance but is very dependent on staff's bili to hold up her weight with a knee immobilizer in place no significant improvement of patient's ability to ambulate as well. Patient will be placed as observation admission Patient admitting physician Dr. Chan willing to accept patient for observation request basic admission labs to be added; basic metabolic panel consistent with chronic renal insufficiency, CBC grossly within normal range, Coagulation studies within normal limits; urinalysis pending Physician Communication Physician Communication disscussed with Dr Haider will obs admit Diagnosis Primary Impression: Left knee sprain Qualified Code: S83.92XA - Sprain of left knee, unspecified ligament, initial encounter Additional Impressions: Generalized weakness Acute on chronic renal failure Admitting Information Admitting Physician Requests: Observation Referrals: Orthopedist call for appointment Patient Instructions: General Instructions, Knee Sprain (ED) Additional Instruction: Elevate. Ice for 20 minutes 4-5 times daily. Take Lortab as directed as needed for pain. Caution this can make you drowsy so do not drive after taking. Wear Richy bandage as needed for support. Walk with your walker at home. Follow up with an orthopedist. Return to the emergency department for any acute worsening of symptoms per Disposition: 01 DISCHARGE HOME Condition: Stable Berkley Paredes MD Aug 22, 2016 01:46
--- NOTE | 2016-08-22 01:48 | RADRPT ---
EXAM DATE/TIME: 08/22/2016 01:28 [facility] COMPARISON: CHEST PA & LAT, August 05, 2016, 9:01. INDICATIONS : Cough. Congestion. MEDICAL HISTORY : Congestive heart failure. SURGICAL HISTORY : Cholecystectomy. ENCOUNTER: Initial ACUITY: 3 days PAIN SCORE: 5/10 LOCATION: Bilateral chest FINDINGS: No infiltrate, effusion or pneumothorax demonstrated. No perceptible pulmonary edema. Mild cardiomegaly and tortuosity of the thoracic aorta again noted. Narrowing of the subacromial spaces, especially on the right. Chronic rotator cuff tears suspected, p robable on the right possible on the left. CONCLUSION: No evidence of acute cardiopulmonary disease. Rian Khalil MD on August 22, 2016 at 1:45 Board Certified Radiologist. This report was verified electronically.
[2016-08-22] MEDS: SODIUM CHLOR 0.45% 1000 ML INJ 1,000 ML IV SCH ×2 (02:03→14:07)
[2016-08-22] MEDS: ACETAMINOPHEN 500 MG CPLT PO SCH ×4 (02:03→18:53)
[2016-08-22 02:15] LABS: BLOOD, URINE NEG (NEG); COMMENT (UR) CULTURE INDICATED; CULTURE IF INDICATED CULTURE INDICATED; GLUCOSE,URINE NEG (NEG); HYALINE CAST, URINE 6 /lpf (RARE); KETONE, URINE NEG (NEG); NITRITE,URINE POS (NEG); SQUAMOUS EPITHELIAL CELL URINE 1 /hpf (0-5); URINE COLOR LIGHT-YELLOW (YELLW/STRAW)
[2016-08-22 02:16] LABS: BACTERIA, URINE MOD /hpf
[2016-08-22] MEDS: FLUTICASONE PROPIONATE 220 MCG/ACT 12 GM INHALER INH SCH ×2 (09:00→21:01)
[2016-08-22] MEDS: SODIUM CHLORIDE 0.9% FLUSH 10 ML FLUSH IV FLUSH SCH ×2 (09:00→21:01)
[2016-08-22] MEDS ORDERED: SODIUM CHLORIDE 0.9% FLUSH 10 ML FLUSH IV FLUSH SCH (09:00)
[2016-08-22] MEDS ORDERED: FERROUS SULFATE 300 MG /5ML UDC PO SCH (09:00)
[2016-08-22] MEDS: MULTIVITAMINS/MINERALS THERAPEUTIC TAB PO SCH (10:00)
[2016-08-22] MEDS: DILTIAZEM-CD 180 MG CAP ER PO SCH (10:00)
[2016-08-22] MEDS: FUROSEMIDE 40 MG TAB PO SCH ×2 (10:00→21:02)
[2016-08-22] MEDS: guaiFENesin E.R. 600 MG TAB PO SCH ×2 (10:01→21:02)
[2016-08-22] MEDS: ASPIRIN EC 81 MG TABEC PO SCH (10:01)
[2016-08-22] MEDS: AMIODARONE 200 MG TAB PO SCH (10:01)
[2016-08-22] MEDS: LISINOPRIL 20 MG TAB PO SCH (10:02)
[2016-08-22] MEDS: APIXABAN 2.5 MG TABLET PO SCH ×2 (10:02→21:02)
[2016-08-22] MEDS: PYRIDOXINE HCL 50 MG TAB PO SCH (10:02)
--- NOTE | 2016-08-22 10:51 | HHI.HP ---
History of Present Illness Primary Care Physician Edu Haider DO Admission Diagnosis Right knee injury; fall; generalized weakness Diagnoses: (1) Debility History of Present Illness recently released from TCU but tripped and fell injuring her r knee xr no fx will need readmission to snf facillity for further strengthing Review of Systems Musculoskeletal: COMPLAINS OF: Joint pain, Muscle aches Past Family Social History Allergies: Coded Allergies: Penicillin (Verified Allergy, Unknown, 08/21/16) Sulfa (Verified Allergy, Unknown, 08/21/16) Uncoded Allergies: Phenobarbitol (Allergy, Severe, Hives, 07/01/16) Past Medical History obesity, hptn, hpld, hyperparathyroidism Past Surgical History kidney stones, bilateral tka parathyroid ectomy Reported Medications Reported Meds & Active Scripts Active Januvia (Sitagliptin Phosphate) 25 Mg Tab 25 Mg PO DAILY 28 Days Amiodarone (Amiodarone HCl) 200 Mg Tab 200 Mg PO DAILY 28 Days Acetaminophen 500 Mg Tab 500 Mg PO Q6H 28 Days Tessalon Perles (Benzonatate) 100 Mg Cap 200 Mg PO TID PRN Mucinex ER 12 HR (Guaifenesin) 600 Mg Rush 600 Mg PO BID Benazepril (Benazepril HCl) 20 Mg Tab 20 Mg PO DAILY Eliquis (Apixaban) 2.5 Mg Tab 2.5 Mg PO BID Reported Iron (Ferrous Fumarate) 18 Mg Tab 18 Mg PO BID Multivitamin Women (Multiple Vitamins W/ Minerals) 1 Tab Tab 1 Tab PO DAILY Vitamin B-6 (Pyridoxine HCl) 100 Mg Tab 100 Mg PO DAILY Cardizem CD 24 HR (Diltiazem CD 24 HR) 180 Mg Caper 180 Mg PO DAILY Flovent Hfa 12 GM Inh (Fluticasone Propionate) 220 Mcg/Act Inh 1 Puff INH BID Use daily at the same time. Aspirin 81 Mg Tabdr 81 Mg PO DAILY Lasix (Furosemide) 40 Mg Tab 20 Mg PO BID Active Ordered Medications Inpatient Medications Acetaminophen (Tylenol) 500 mg Q6H PO Last administered on 08/22/16 02:03; Start 08/22/16 at 01:00 Acetaminophen/ Hydrocodone Bitart ([place] 5-325 Mg) 1 tab ONCE ONCE PO Last administered on 08/21/16 22:18; Start 08/21/16 at 21:45; Stop 08/21/16 at 21:46 ; Status DC Amiodarone HCl (Cordarone) 200 mg DAILY PO Last administered on 08/22/16 10:01 ; Start 08/22/16 at 09:00 Apixaban (Eliquis) 2.5 mg BID PO Last administered on 08/22/16 10:02; Start at 09:00 Aspirin (Ecotrin Ec) 81 mg DAILY PO Last administered on 08/22/16 10:01; Start 08/22/16 at 09:00 Benzonatate (Tessalon) 200 mg TID PRN PO COUGH; Start 08/22/16 at 01:00 Diltiazem HCl (Cardizem Cd) 180 mg DAILY PO Last administered on 08/22/16 10: 00; Start 08/22/16 at 09:00 Ferrous Sulfate (Ferrous Sulfate Liq) 75 mg BID PO NS; Start 08/22/16 at 09:00 Fluticasone Propionate (Flovent Hfa 220 Mcg Inh) 1 puff BID INH ; Start at 09:00 Furosemide (Lasix) 20 mg BID PO Last administered on 08/22/16 10:00; Start at 09:00 Guaifenesin (Mucinex Er) 600 mg BID PO Last administered on 08/22/16 10:01; Start 08/22/16 at 09:00 Lisinopril (Prinivil) 20 mg DAILY PO Last administered on 08/22/16 10:02; Start 08/22/16 at 09:00 Multivitamins/ Minerals Therapeutic (Theragran M Tab) 1 tab DAILY PO Last administered on 08/22/16 10:00; Start 08/22/16 at 09:00 Naloxone HCl (Narcan Inj) 0.4 mg UNSCH PRN IV SEE LABEL COMMENTS; Start at 01:00 Pyridoxine HCl (Vitamin B6) 100 mg DAILY PO Last administered on 08/22/16 10: 02; Start 08/22/16 at 09:00 Sitagliptin Phosphate (Januvia) 25 mg DAILY PO ; Start 08/22/16 at 09:00 Sodium Chloride (1/2 NS 1000 ml Inj) 1,000 ml @ 75 mls/hr [id number] IV Last administered on 4/30/17at 02:03; Start 08/22/16 at 00:47 Sodium Chloride (NS Flush) 2 ml BID IV FLUSH ; Start 08/22/16 at 09:00 Sodium Chloride 2 ml 2 ml UNSCH PRN IVF FLUSH AFTER USING IV ACCESS; Start at 00:30; Stop 08/22/16 at 01:03; Status DC Family History father had brights disease mother had colon cancer Social History non smoker non drinker Physical Exam Vital Signs Vital Signs Date Time Temp Pulse Resp B/P Pulse Ox O2 Delivery O2 Flow Rate FiO2 08/22/16 07:25 97.6 70 14 127/74 96 08/22/16 04:00 97.1 80 18 133/65 97 08/22/16 03:17 16 08/22/16 03:01 81 08/22/16 01:58 78 16 126/70 96 08/22/16 00:34 96 08/21/16 20:18 97.6 96 16 171/102 98 Physical Exam GENERAL: This is a well-nourished, well-developed patient, in no apparent distress. SKIN: No rashes, ecchymoses or lesions. Cool and dry. HEAD: Atraumatic. Normocephalic. No temporal or scalp tenderness. EYES: Pupils equal round and reactive. Extraocular motions intact. No scleral icterus. No injection or drainage. ENT: Nose without bleeding, purulent drainage or septal hematoma. Throat without erythema, tonsillar hypertrophy or exudate. Uvula midline. Airway patent. NECK: Trachea midline. No JVD or lymphadenopathy. Supple, nontender, no meningeal signs. CARDIOVASCULAR: Regular rate and rhythm without murmurs, gallops, or rubs. RESPIRATORY: Clear to auscultation. Breath sounds equal bilaterally. No wheezes , rales, or rhonchi. GASTROINTESTINAL: Abdomen soft, non-tender, nondistended. No hepato-splenomegaly , or palpable masses. No guarding.obese MUSCULOSKELETAL: Extremities without clubbing, cyanosis, or edema. No joint tenderness, effusion, or edema noted. No calf tenderness. Negative Homans sign bilaterally.left knee painful NEUROLOGICAL: Awake and alert. Cranial nerves II through XII intact. Motor and sensory grossly within normal limits. Five out of 5 muscle strength in all muscle groups. Normal speech. Laboratory Laboratory Tests Test 08/22/16 08/22/16 00:45 02:00 White Blood Count 8.7 Red Blood Count 4.17 Hemoglobin 11.7 Hematocrit 35.9 Mean Corpuscular Volume 86.1 Mean Corpuscular Hemoglobin 28.1 Mean Corpuscular Hemoglobin 32.7 Concent Red Cell Distribution Width 15.5 Platelet Count 272 Mean Platelet Volume 7.7 Neutrophils (%) (Auto) 74.8 Lymphocytes (%) (Auto) 12.0 Monocytes (%) (Auto) 9.1 Eosinophils (%) (Auto) 3.5 Basophils (%) (Auto) 0.6 Neutrophils # (Auto) 6.5 Lymphocytes # (Auto) 1.0 Monocytes # (Auto) 0.8 Eosinophils # (Auto) 0.3 Basophils # (Auto) 0.1 CBC Comment DIFF FINAL Differential Comment Prothrombin Time 10.7 Prothromb Time International 1.0 Ratio Activated Partial 28.9 Thromboplast Time Sodium Level 137 Potassium Level 4.2 Chloride Level 103 Carbon Dioxide Level 29.5 Anion Gap 5 Blood Urea Nitrogen 47 Creatinine 2.15 Estimat Glomerular Filtration 22 Rate Random Glucose 205 Calcium Level 9.5 Urine Color LIGHT-YELLOW Urine Turbidity CLEAR Urine pH 5.0 Urine Specific [place] 1.011 Urine Protein NEG Urine Glucose (UA) NEG Urine Ketones NEG Urine Occult Blood NEG Urine Nitrite POS Urine Bilirubin NEG Urine Urobilinogen LESS THAN 2.0 Urine Leukocyte Esterase MOD Urine RBC LESS THAN 1 Urine WBC 9 Urine WBC Clumps MOD Urine Squamous Epithelial 1 Cells Urine Bacteria MOD Urine Hyaline Casts 6 Microscopic Urinalysis Comment CULTURE INDICATED Date/Time Procedure Status Source Growth 08/22/16 02:00 Urine Culture Received Urine Clean Catch Pending Result Diagram: 08/22/16 0045 08/22/16 0045 Imaging Last 24 hours Impressions Chest X-Ray 08/22/16 004 Signed Impressions: Service Date/Time: Monday, August 22, 2016 01:28 - CONCLUSION: No evidence of acute cardiopulmonary disease. Rian Khalil MD knee xray no fx lumbar xr no fx Course very weak will need further therapy Assessment and Plan Problem List: (1) Fall Status: Acute Assessment and Plan discussed with patient and family daughter works at an snf in [place] and will try to place her there Discussed Condition With pt and daughter Discharge Planning return to TCU or to SNF Tra Triana DO Aug 22, 2016 10:51
[2016-08-22] MEDS: FERROUS SULFATE 325 MG (65 MG ELEMENTAL IRON) TAB PO SCH ×2 (15:54→21:01)
--- NOTE | 2016-08-22 18:44 | EKG ---
Date Performed: 08/22/2016 Time Performed: 01:08:38 PTAGE: 89 years EKG: ATRIAL FIBRILLATION NONSPECIFIC ST & T-WAVE ABNORMALITY ABNORMAL RHYTHM ECG PREVIOUS TRACING : 08/04/2016 06.04 Compared to prior tracing no significant change DOCTOR: Katlin Tuttle Interpretating Date/Time 08/22/2016 18:44:01
[2016-08-23 00:05] VITALS: BP 151/68; PULSE 73; RESP 18; TEMP 98.4; O2SAT 97
[2016-08-23] MEDS: ACETAMINOPHEN 500 MG CPLT PO SCH ×3 (01:31→13:09)
[2016-08-23] MEDS: SODIUM CHLOR 0.45% 1000 ML INJ 1,000 ML IV SCH ×2 (01:32→16:47)
[2016-08-23 08:00] VITALS: PULSE 82
[2016-08-23 08:00] LABS: BASOPHIL % 0.6 % (0.0-2.0); EOSINOPHIL # 0.3 TH/MM3 (0-0.4); EOSINOPHIL % 4.3 % (0.0-4.0); HEMATOCRIT 31.4 % (35.0-46.0); HEMO FLAGS DIFF FINAL; LYMPH % 13.4 % (9.0-44.0); LYMPHOCYTE # 0.9 TH/MM3 (1.0-4.8); MEAN CELL VOLUME 85.8 FL (80.0-100.0); MEAN CORPUSCULAR HEMOGLOBIN 28.1 PG (27.0-34.0); MEAN CORPUSCULAR HGB CONC 32.7 % (32.0-36.0); MONO % 9.5 % (0.0-8.0); NEUT % 72.2 % (16.0-70.0); PLATELET COUNT 237 TH/MM3 (150-450); RED BLOOD COUNT 3.67 MIL/MM3 (4.00-5.30); RED CELL DISTRIBUTION WIDTH 15.9 % (11.6-17.2); WHITE BLOOD COUNT 6.9 TH/MM3 (4.0-11.0)
--- NOTE | 2016-08-23 08:18 | HHI.PR ---
Subjective Remarks Patient resting comfortable in bed. Brace on right leg. No pain reported. Denies CP and SOB. Objective Vital Signs Date Time Temp Pulse Resp B/P Pulse Ox O2 Delivery O2 Flow Rate FiO2 08/23/16 00:05 98.4 73 18 151/68 97 08/22/16 19:49 98.4 73 21 141/76 97 08/22/16 16:29 98.0 67 16 121/68 97 08/22/16 11:01 97.8 75 18 116/55 97 Result Diagram: 08/23/16 0713 08/22/16 0045 Imaging Last 72 hours Impressions Chest X-Ray 08/22/16 0047 Signed Impressions: Service Date/Time: Monday, August 22, 2016 01:28 - CONCLUSION: No evidence of acute cardiopulmonary disease. Rian Khalil MD Lumbar Spine X-Ray 08/21/16 0000 Signed Impressions: Service Date/Time: Sunday, August 21, 2016 21:54 - CONCLUSION: Chronic changes. Kameron Minor MD Knee X-Ray 08/21/16 0000 Signed Impressions: Service Date/Time: Sunday, August 21, 2016 21:57 - CONCLUSION: Intact total knee arthroplasty for technique. Kameron Minor MD Objective Remarks GENERAL: Alert and cooperative SKIN: Warm and dry. HEAD: Normocephalic. EYES: No scleral icterus. No injection or drainage. NECK: Supple, trachea midline. No JVD or lymphadenopathy. CARDIOVASCULAR: Regular rate and rhythm without murmurs, gallops, or rubs. RESPIRATORY: Breath sounds equal bilaterally. No accessory muscle use. GASTROINTESTINAL: Abdomen soft, non-tender, nondistended. MUSCULOSKELETAL: No cyanosis, or edema. Brace on right leg BACK: Nontender without obvious deformity. No CVA tenderness. Medications and IVs Current Medications Medications (Trade) Dose Ordered Sig/Jaycee Route Start Time Stop Time Status Last Admin (04/26 NS 1000 ml Inj) 1,000 ml @ 75 mls/hr [id number] IV 08/22/16 00:47 08/23/16 01:32 (NS Flush) 2 ml UNSCH PRN IV FLUSH 08/22/16 01:00 (NS Flush) 2 ml BID IV FLUSH 08/22/16 09:00 08/22/16 21:01 (Tylenol) 650 mg Q4H PRN PO 08/22/16 01:00 08/22/16 09:59 (Narcan Inj) 0.4 mg UNSCH PRN IV 08/22/16 01:00 (Tylenol) 500 mg Q6H PO 08/22/16 01:00 08/23/16 07:24 (Cordarone) 200 mg DAILY PO 08/22/16 09:00 08/22/16 10:01 (Eliquis) 2.5 mg BID PO 08/22/16 09:00 08/22/16 21:02 (Ecotrin Ec) 81 mg DAILY PO 08/22/16 09:00 08/22/16 10:01 (Prinivil) 20 mg DAILY PO 08/22/16 09:00 08/22/16 10:02 (Tessalon) 200 mg TID PRN PO 08/22/16 01:00 (Cardizem Cd) 180 mg DAILY PO 08/22/16 09:00 08/22/16 10:00 (Flovent Hfa 220 Mcg Inh) 1 puff BID INH 08/22/16 09:00 08/22/16 21:01 (Lasix) 20 mg BID PO 08/22/16 09:00 08/22/16 21:02 (Mucinex Er) 600 mg BID PO 08/22/16 09:00 08/22/16 21:02 (Theragran M Tab) 1 tab DAILY PO 08/22/16 09:00 08/22/16 10:00 (Vitamin B6) 100 mg DAILY PO 08/22/16 09:00 08/22/16 10:02 (Januvia) 25 mg DAILY PO 08/22/16 09:00 08/22/16 15:55 (Ferrous Sulfate) 325 mg BID PO 08/22/16 12:30 08/22/16 21:01 Assessment and Plan Problem List: (1) Fall Status: Acute Plan: S/P with right knee pain. XRay with no acute findings. PT initiated Patient will need placement in SNF (2) Hypertension Status: Chronic Plan: Continue current therapy. B/P 151/68 will monitor and makes changes if remains consistently high. (3) Diabetes Status: Chronic Plan: BS AC and HS. On januvia. BS elevated at 205 (4) Chronic kidney disease (CKD) stage G4/A1, severely decreased glomerular filtration rate (GFR) between 15-29 mL/min/1.73 square meter and albuminuria creatinine ratio less than 30 mg/g Status: Acute Plan: GFR 22. Will monitor and avoid nephrotoxins (5) Afib Status: Acute Plan: Rate controlled on Eliquis (6) CHF (congestive heart failure) Status: Acute Plan: No SOB noted. On lasix BID (7) Abnormal urinalysis Status: Acute Plan: UA positive for nitrates. Patient with reports of dysuria and frequency. Ciprofloxacin started until culture comes back. Assessment and Plan Assessment and plan discussed with Dr. Haider Discussed Condition With Nursing Discharge Planning Plan for discharge to SNF Jazmine Arce August 23, 2016 08:18
[2016-08-23 08:29] LABS: ALKALINE PHOSPHATASE 70 U/L (45-117); ALT (GPT) 18 U/L (10-53); ANION GAP 7 MEQ/L (5-15); AST (GOT) 18 U/L (15-37); BICARBONATE 30.9 MEQ/L (21.0-32.0); BLOOD UREA NITROGEN 39 MG/DL (7-18); CHLORIDE 103 MEQ/L (98-107); GLOMERULAR FILTRATION RATE 27 ML/MIN (>89); POTASSIUM 3.9 MEQ/L (3.5-5.1); SODIUM (NA) 141 MEQ/L (136-145); TOTAL BILIRUBIN ADULT 0.4 MG/DL (0.2-1.0)
[2016-08-23] MEDS ORDERED: CIPROFLOXACIN 200 MG PREMIX 100 ML IV SCH (08:30)
[2016-08-23] MEDS ORDERED: GLUCAGON 1 MG/ML VIAL OTHER PRN (08:30)
[2016-08-23] MEDS ORDERED: DEXTROSE 50% IN WATER 50 ML VIAL(D50) IV PUSH PRN (08:30)
[2016-08-23 08:36] VITALS: BP 172/89; PULSE 80; RESP 17; TEMP 97.6; O2SAT 95
[2016-08-23] MEDS: SODIUM CHLORIDE 0.9% FLUSH 10 ML FLUSH IV FLUSH SCH (09:00)
[2016-08-23] MEDS: guaiFENesin E.R. 600 MG TAB PO SCH (09:28)
[2016-08-23] MEDS: AMIODARONE 200 MG TAB PO SCH (09:28)
[2016-08-23] MEDS: DILTIAZEM-CD 180 MG CAP ER PO SCH (09:28)
[2016-08-23] MEDS: MULTIVITAMINS/MINERALS THERAPEUTIC TAB PO SCH (09:28)
[2016-08-23] MEDS: FERROUS SULFATE 325 MG (65 MG ELEMENTAL IRON) TAB PO SCH (09:28)
[2016-08-23] MEDS: APIXABAN 2.5 MG TABLET PO SCH (09:29)
[2016-08-23] MEDS: LISINOPRIL 20 MG TAB PO SCH (09:29)
[2016-08-23] MEDS: ASPIRIN EC 81 MG TABEC PO SCH (09:29)
[2016-08-23] MEDS: PYRIDOXINE HCL 50 MG TAB PO SCH (09:29)
[2016-08-23] MEDS: FUROSEMIDE 40 MG TAB PO SCH (09:29)
[2016-08-23] MEDS: FLUTICASONE PROPIONATE 220 MCG/ACT 12 GM INHALER INH SCH (09:30)
[2016-08-23 12:18] VITALS: BP 163/65; PULSE 77; RESP 20; TEMP 97.3; O2SAT 95
[2016-08-23] MEDS: INSULIN ASPART SUPPLEMENTAL SCALE SQ SCH ×2 (13:14→17:45)
[2016-08-23] MEDS ORDERED: NYSTATIN 100,000 U/GM PWD 15 GM BTL TOPICAL SCH (14:00)
[2016-08-23] MEDS ORDERED: DOCUSATE SODIUM 50 MG/SENNA 8.6 MG TAB PO SCH (15:00)
[2016-08-23] MEDS ORDERED: BISACODYL 10 MG SUPP RECTAL PRN (15:00)
[2016-08-23 15:15] VITALS: BP 151/81; PULSE 70; RESP 18; TEMP 97.6; O2SAT 95
[2016-08-23] MEDS ORDERED: SENN1TAB PO (16:48)
[2016-08-23] MEDS ORDERED: BISA10R RECTAL (16:48)
[2016-08-23] MEDS ORDERED: CIPR-9 PO (16:50)
--- NOTE | 2016-08-23 17:04 | HHI.DS ---
Discharge Summary Admission Date Aug 22, 2016 at 00:22 Discharge Date: August 23, 2016 Admitting Diagnosis Right knee injury; fall; generalized weakness (1) Chronic kidney disease (CKD) stage G4/A1, severely decreased glomerular filtration rate (GFR) between 15-29 mL/min/1.73 square meter and albuminuria creatinine ratio less than 30 mg/g (2) Afib (3) Anemia (4) Abnormal urinalysis (5) CHF (congestive heart failure) (6) Diabetes (7) Right knee sprain Brief History Patient is a 89 year old female who recently released from [facility] who tripped and fell injuring her r knee. XRAY of right knee with no fracture. CBC/BMP: 08/23/16 0713 08/23/16 0713 Significant Findings Laboratory Tests Test 08/22/16 08/22/16 08/22/16 08/23/16 00:45 02:00 13:55 07:13 Blood Urea Nitrogen 47 MG/DL (7-18) 39 MG/DL (7-18) Creatinine 2.15 MG/DL 1.78 MG/DL (0.50-1.00) (0.50-1.00) Estimat Glomerular Filtration 22 ML/MIN (>89) 27 ML/MIN (>89) Rate Random Glucose 205 MG/DL 144 MG/DL (74-106) (74-106) Neutrophils (%) (Auto) 74.8 % 72.2 % (16.0-70.0) (16.0-70.0) Monocytes (%) (Auto) 9.1 % (0.0-8.0) 9.5 % (0.0-8.0) Urine Nitrite POS (NEG) Urine Leukocyte Esterase MOD (NEG) Urine WBC 9 /hpf (0-5) Urine WBC Clumps MOD (NONE) Urine Bacteria MOD /hpf (NONE) Free Triiodothyronine (T3) 1.34 PG/ML pg/dL (2.18-3.98) Red Blood Count 3.67 MIL/MM3 (4.00-5.30) Hemoglobin 10.3 GM/DL (11.6-15.3) Hematocrit 31.4 % (35.0-46.0) Eosinophils (%) (Auto) 4.3 % (0.0-4.0) Lymphocytes # (Auto) 0.9 TH/MM3 (1.0-4.8) Albumin 2.7 GM/DL (3.4-5.0) PE at Discharge GENERAL: Alert and cooperative SKIN: Warm and dry. HEAD: Normocephalic. EYES: No scleral icterus. No injection or drainage. NECK: Supple, trachea midline. No JVD or lymphadenopathy. CARDIOVASCULAR: Regular rate and rhythm without murmurs, gallops, or rubs. RESPIRATORY: Breath sounds equal bilaterally. No accessory muscle use. GASTROINTESTINAL: Abdomen soft, non-tender, nondistended. MUSCULOSKELETAL: No cyanosis, or edema. Brace on right leg BACK: Nontender without obvious deformity. No CVA tenderness. Hospital Course Patient is a 89 year old female who recently released from [facility] who tripped and fell injuring her r knee. XRAY of right knee with no fracture. Patient was also found to have a UTI. Culture is still pending. Placed on Cipro BID for 5 days has multiple drug allergies. Patient also has CKD, AFIB, CHF, Diabetes, and anemia. GFR improving. AFIB is rate controlled and on eliquis for anticoagulation. Also has CHF and is on low dose lasix. No SOB noted. Patient will need blood work in 1 week to monitor anemia, CKD, and CHF. Patient is discharged to [facility] per patient and family request. Pt Condition on Discharge: Good Discharge Disposition: Discharge to SNF Discharge Instructions DIET: Follow Instructions for: Heart Healthy Diet Activities you can perform: Regular-No Restrictions Follow up Referrals: PCP Follow-up New Medications: Ciprofloxacin (Cipro) 500 Mg Tab 500 MG PO BID Infection Days 5 Ref 0 TAB Bisacodyl Supp (Bisac-Evac Supp) 10 Mg Supp 10 MG RECTAL DAILY PRN CONSTIPATION #10 SUPP Sennosides-Docusate Sodium (Senna Plus 8.6-50 mg) 1 Tab Tab 1 TAB PO BID Constipation #30 TAB Continued Medications: Acetaminophen (Acetaminophen) 500 Mg Tab 500 MG PO Q6H Pain Management Days 28 TAB Amiodarone (Amiodarone) 200 Mg Tab 200 MG PO DAILY tachacardia Days 28 TAB Apixaban (Eliquis) 2.5 Mg Tab 2.5 MG PO BID #60 TAB Aspirin (Aspirin) 81 Mg Tabdr 81 MG PO DAILY TAB Benazepril (Benazepril) 20 Mg Tab 20 MG PO DAILY Blood Pressure Management #30 Ref 0 TAB Benzonatate (Tessalon Perles) 100 Mg Cap 200 MG PO TID PRN COUGH #90 CAP Diltiazem CD 24 HR (Cardizem CD 24 HR) 180 Mg Caper 180 MG PO DAILY #30 Ref 0 CAP Ferrous Fumarate (Iron) 18 Mg Tab 18 MG PO BID Nutritional Supplement Ref 0 TAB Fluticasone 12 GM Inh (Flovent Hfa 12 GM Inh) 220 Mcg/Act Inh 1 PUFF INH BID Use daily at the same time. Asthma Management #1 Ref 0 INHALER Furosemide (Lasix) 40 Mg Tab 20 MG PO BID #30 Ref 0 TAB Multiple Vitamins W/ Minerals (Multivitamin Women) 1 Tab Tab 1 TAB PO DAILY Nutritional Supplement Ref 0 TAB Pyridoxine (Vitamin B-6) 100 Mg Tab 100 MG PO DAILY Nutritional Supplement #30 Ref 0 TAB Sitagliptin (Januvia) 25 Mg Tab 25 MG PO DAILY diabetes Days 28 TAB Discontinued Medications: Guaifenesin ER 12 HR (Mucinex ER 12 HR) 600 Mg Rush 600 MG PO BID #60 TAB Jazmine Arce August 23, 2016 17:04
[2016-08-23] MEDS ORDERED: BETAMETHASONE/CLOTRIMAZOLE CREAM 15 GM TOPICAL SCH (18:00)
[2016-08-24] MEDS ORDERED: POLYETHYLENE GLYCOL 17 GM PKG PO SCH (09:00)
== END 2016-08-23 19:19 | disposition home or self-care (01) ==
LOC: NEPC 20:16 → NEDA 08-22 00:22 → NEPGCP 08-22 02:45
PROVIDERS: ADMIT Family Medicine; ATTEND Family Medicine
DX: S83.91XA Sprain of unspecified site of right knee, initial encounter (principal); M54.5 Low back pain; W01.0XXA Fall on same level from slipping, tripping and stumbling without subsequent striking against object, initial encounter; I48.91 Unspecified atrial fibrillation; Z79.01 Long term (current) use of anticoagulants; J45.909 Unspecified asthma, uncomplicated; I50.9 Heart failure, unspecified; I13.0 Hypertensive heart and chronic kidney disease with heart failure and stage 1 through stage 4 chronic kidney disease, or unspecified chronic kidney disease; J44.9 Chronic obstructive pulmonary disease, unspecified; K21.9 Gastro-esophageal reflux disease without esophagitis; N39.3 Stress incontinence (female) (male); B96.20 Unspecified Escherichia coli [E. coli] as the cause of diseases classified elsewhere; D64.9 Anemia, unspecified; N39.0 Urinary tract infection, site not specified; N17.9 Acute kidney failure, unspecified; N18.9 Chronic kidney disease, unspecified; E66.9 Obesity, unspecified; E21.3 Hyperparathyroidism, unspecified; R30.0 Dysuria; E11.9 Type 2 diabetes mellitus without complications; Z79.84 Long term (current) use of oral hypoglycemic drugs
CPT/HCPCS: 71020; 72100; 73564; 80048; 80053; 81001; 82948; 84481; 85025; 85610; 85730; 87077; 87086; 87186; 93005; 97163; 99285; G0378; G8987; G8988; J0744; J1815; L1830